=== PATIENT | female | born 1965 | race Caucasian/White ===

== ENCOUNTER 2017-03-12 07:14 | Day surgery (SDC) | payer MEDICAID ==
[2017-03-12] MEDS ORDERED: Midazolam 1 MG/ML 2 ML SDV ONE (07:53)
[2017-03-12] MEDS ORDERED: Propofol 200 MG/20 ML SDV ONE ×2 (07:53→09:18)
[2017-03-12] MEDS ORDERED: fentaNYL 100 MCG/2 ML SDV ONE (07:53)
[2017-03-12] MEDS ORDERED: Sodium Chloride 0.9% 1,000 ML IV SCH (08:45)
--- NOTE | 2017-03-13 09:09 | PROC ---
DATE OF PROCEDURE: 03/12/2017 INDICATION: Zainab is a 51-year-old female who comes in for a screening colonoscopy. The risks and benefits were explained to the patient. SCOPE: The Olympus 180AL scope was used. ANESTHESIA: The anesthesia was given by nurse wellness program administrator. During the procedure, we used 2 mg of Versed, 2 mL of fentanyl, and 400 mg of propofol. DESCRIPTION OF PROCEDURE: With a gloved finger, the rectum was examined. Then, the tube was placed into the rectum and advanced under direct vision. There were a few diverticula noted in the sigmoid colon. We advanced the scope, guided into the ascending colon, and had to use external pressure to get to the cecum. The cecum was entered. There were no abnormality noted in the cecum. Upon retraction of the tube, just close to the cecum, noted an area that was abnormal in architecture. Biopsy was done, but this was soft and not a firm area. We did biopsies anyway and 2 were done at that point. There was no significant bleeding noted after the procedure was done. Upon slow retraction of the tube, air was withdrawn slowly, got good observation of the entire mucosa. The remainder of the ascending, transverse, and descending colon was unremarkable. The sigmoid was unremarkable as well as the rectum. The tube was removed. The patient tolerated the procedure well. PREOPERATIVE DIAGNOSIS: Screening colonoscopy. POSTOPERATIVE DIAGNOSIS: Normal colon from cecum to rectum, except for proximal to the cecum noted an abnormal architecture area. Biopsies were done. I feel that this is most likely nonmalignant. Pictures were taken of this area as well. She will return to the office in 1 week, and we will discuss the report with her. James Alexis MD /[id number]
== END 2017-03-12 10:56 | disposition home or self-care (01) ==
LOC: JP.SDS 07:14
PROVIDERS: ATTEND Internal Medicine
DX: Z12.11 Encounter for screening for malignant neoplasm of colon (principal); K63.3 Ulcer of intestine; E03.9 Hypothyroidism, unspecified
CPT/HCPCS: 45380; J2250; J2704; J3010; J7040; 88305; J7030

== ENCOUNTER 2022-02-23 09:39 | Emergency (ER) | payer OTHER, MEDICAID ==
[2022-02-23] MEDS ORDERED: Sodium Chloride 0.9% 10 ML Syringe FLUSH PRN (10:20)
[2022-02-23] MEDS ORDERED: Ketorolac 30 MG/ML SDV IVPUSH ONE (10:21)
[2022-02-23] MEDS ORDERED: Ondansetron 4 MG/2 ML SDV IVPUSH ONE (10:21)
[2022-02-23] MEDS ORDERED: Lactated Ringers 1,000 ML IV SCH (10:30)
[2022-02-23 10:40] LABS: ESTIMATED GFR 74 mL/min (>60); TROPONIN I HIGH SENSITIVITY 6.3 pg/mL (<=60.3)
[2022-02-23 10:53] LABS: CORONAVIRUS COVID-19 NAA NEGATIVE (NEGATIVE)
== END 2022-02-23 12:04 | disposition home or self-care (01) ==
LOC: JP.ED 09:39
DX: K52.9 Noninfective gastroenteritis and colitis, unspecified (principal); Z79.899 Other long term (current) drug therapy; Z20.822 Contact with and (suspected) exposure to COVID-19
CPT/HCPCS: 0241U; 36415; 80053; 83605; 84484; 85025; 96361; 96374; 96375; 99284; J1885; J2405; J3490; J7120

== ENCOUNTER 2022-06-09 08:04 | Inpatient (IN) | payer OTHER, MEDICAID ==
[2022-06-09] MEDS ORDERED: Acetaminophen 500 MG Tab PO ONE (08:30)
[2022-06-09] MEDS ORDERED: Glycopyrrolate 0.2 MG/ML 5 ML MDV ONE (08:36)
[2022-06-09] MEDS ORDERED: Neostigmine Methylsulfate 1 MG/ML 5 ML Syringe ONE (08:36)
[2022-06-09] MEDS ORDERED: Rocuronium 50 MG/5 ML Vial ONE (08:36)
[2022-06-09] MEDS ORDERED: Propofol 200 MG/20 ML SDV ONE (08:36)
[2022-06-09] MEDS ORDERED: fentaNYL 250 MCG/5 ML SDV ONE (08:36)
[2022-06-09] MEDS ORDERED: Ondansetron 4 MG/2 ML SDV ONE (08:36)
[2022-06-09] MEDS ORDERED: Dexamethasone 4 MG/ML SDV ONE (08:36)
[2022-06-09] MEDS ORDERED: Succinylcholine 200 MG/10 ML MDV ONE (08:36)
[2022-06-09] MEDS ORDERED: Scopolamine 1.5 MG Transdermal Patch TRDERM ONE (08:38)
[2022-06-09] MEDS ORDERED: Bupivacaine 0.5%/EPINEPHrine 1:200,000 50 ML MDV ONE (08:53)
[2022-06-09] MEDS ORDERED: Indocyanine Green 25 MG SDV INJECT ONE (09:00)
[2022-06-09 09:02] LABS: ESTIMATED GFR 100 mL/min (>60)
[2022-06-09] MEDS: Lactated Ringers 1,000 ML IV SCH ×2 (09:04→16:13)
[2022-06-09] MEDS ORDERED: metroNIDAZOLE/Normal Saline 500 MG in Premix Bag 1 BAG IV ONE (09:15)
[2022-06-09] MEDS ORDERED: cefTRIAXone 2 GM in Sodium Chloride 0.9% 50 ML IV ONE (09:15)
[2022-06-09] MEDS ORDERED: Ketorolac 30 MG/ML SDV ONE (09:51)
[2022-06-09] MEDS ORDERED: fentaNYL 100 MCG/2 ML SDV ONE (09:52)
[2022-06-09] MEDS ORDERED: Lactated Ringers 1,000 ML ONE (10:42)
[2022-06-09] MEDS ORDERED: Ondansetron 4 MG/2 ML SDV IVPUSH PRN (11:32)
[2022-06-09] MEDS: Acetaminophen 1,000 MG in Premix Bag 1 BAG IV SCH ×2 (14:39→21:43)
[2022-06-09] MEDS: Prochlorperazine 10 MG/2 ML SDV IVPUSH PRN (17:09)
[2022-06-09] MEDS: oxyCODONE 5 MG Tab PO PRN (17:09)
[2022-06-09] MEDS: Ketorolac 15 MG/ML SDV IVPUSH SCH (18:11)
[2022-06-09] MEDS ORDERED: NALTREXONE HCL PO SCH (21:00)
[2022-06-09] MEDS ORDERED: [UNRECOGNIZED DRUG - OTHER] PO SCH (21:00)
[2022-06-09] MEDS ORDERED: BUPROPION HCL PO SCH (21:00)
[2022-06-09] MEDS: traZODone 50 MG Tab PO SCH (21:42)
[2022-06-10] MEDS: Ketorolac 15 MG/ML SDV IVPUSH SCH ×2 (00:46→06:06)
[2022-06-10] MEDS: Lactated Ringers 1,000 ML IV SCH (00:46)
[2022-06-10] MEDS: Acetaminophen 1,000 MG in Premix Bag 1 BAG IV SCH (03:17)
[2022-06-10 05:54] LABS: ESTIMATED GFR 104 mL/min (>60)
[2022-06-10] MEDS: Levothyroxine 112 MCG Tab PO SCH (07:17)
[2022-06-10] MEDS: Pantoprazole 40 MG Tab.CR PO SCH (07:17)
[2022-06-10] MEDS ORDERED: Non-Formulary Medication 1 Each (Omeprazole Magnesium [Prilosec Otc] 20 MG Tablet.Dr) PO SCH (09:00)
[2022-06-10] MEDS ORDERED: Levothyroxine 88 MCG Tab PO SCH (09:00)
[2022-06-10] MEDS ORDERED: Non-Formulary Medication 1 Each (Trazodone [Trazodone] 100 MG Tablet) PO SCH (09:00)
[2022-06-10] MEDS ORDERED: Indocyanine Green 25 MG SDV INJECT ONE (09:30)
[2022-06-10] MEDS: Acetaminophen 500 MG Tab PO SCH ×3 (09:33→21:31)
[2022-06-10] MEDS: oxyCODONE 5 MG Tab PO PRN ×2 (13:33→21:35)
[2022-06-10] MEDS ORDERED: Ondansetron 4 MG Tab.DIS PO PRN (13:52)
[2022-06-10] MEDS: Prochlorperazine 10 MG/2 ML SDV IVPUSH PRN (15:59)
[2022-06-10] MEDS: traZODone 50 MG Tab PO SCH (21:31)
[2022-06-11] MEDS: Acetaminophen 500 MG Tab PO SCH ×2 (04:02→09:13)
[2022-06-11] MEDS: oxyCODONE 5 MG Tab PO PRN (04:03)
[2022-06-11 06:13] LABS: ESTIMATED GFR 100 mL/min (>60)
[2022-06-11] MEDS: Levothyroxine 112 MCG Tab PO SCH (07:22)
[2022-06-11] MEDS: Pantoprazole 40 MG Tab.CR PO SCH (07:22)
[2022-06-11] MEDS ORDERED: Ketorolac 15 MG/ML SDV IVPUSH SCH (08:00)
[2022-06-11] MEDS ORDERED: Enoxaparin 40 MG/0.4 ML Syringe SUBCUT SCH (09:00)
== END 2022-06-11 13:38 | disposition home or self-care (01) | DRG 419 ==
LOC: JP.SDS 08:04 → JP.MS 11:32
PROVIDERS: ADMIT Student in an Organized Health Care Education/Training Program; ATTEND Student in an Organized Health Care Education/Training Program
PROC: 0FT44ZZ Resection of Gallbladder, Percutaneous Endoscopic Approach (ICD-10-PCS; principal; 2022-06-09)
PROC: 8E0W4CZ Robotic Assisted Procedure of Trunk Region, Percutaneous Endoscopic Approach (ICD-10-PCS; 2022-06-09)
DX: K80.64 Calculus of gallbladder and bile duct with chronic cholecystitis without obstruction (principal); K21.9 Gastro-esophageal reflux disease without esophagitis; E03.9 Hypothyroidism, unspecified; Z98.890 Other specified postprocedural states; Z90.49 Acquired absence of other specified parts of digestive tract
CPT/HCPCS: 36415; 80053; 83735; 84100; 85018; 85027; 85610; 88304; 93005; 93010; A9270-GY; J0131; J0330; J0780; J1100; J1650; J1885; J2405; J2704; J2710; J3010; J3490; J7120; Q0162; U0002

== ENCOUNTER 2022-07-17 06:05 | Day surgery (SDC) | payer OTHER, MEDICAID ==
[2022-07-17] MEDS ORDERED: Dextrose 5%-Lactated Ringers 1,000 ML IV SCH (06:30)
[2022-07-17] MEDS ORDERED: fentaNYL 50 MCG/ML SDV ONE (07:12)
[2022-07-17] MEDS ORDERED: Propofol 200 MG/20 ML SDV ONE (07:12)
[2022-07-17] MEDS ORDERED: Midazolam 1 MG/ML 2 ML SDV ONE (07:12)
[2022-07-17] MEDS ORDERED: Glycopyrrolate 0.2 MG/ML 2 ML SDV IVPUSH ONE (07:15)
== END 2022-07-17 09:11 | disposition home or self-care (01) ==
LOC: JP.SDS 06:05
PROVIDERS: ATTEND Surgery
DX: K29.60 Other gastritis without bleeding (principal); K25.9 Gastric ulcer, unspecified as acute or chronic, without hemorrhage or perforation; K44.9 Diaphragmatic hernia without obstruction or gangrene; K21.9 Gastro-esophageal reflux disease without esophagitis; E66.9 Obesity, unspecified; Z79.899 Other long term (current) drug therapy; Z68.29 Body mass index [BMI] 29.0-29.9, adult
CPT/HCPCS: 43239; 87081; 88305; 88341; 88342; J2250; J2704; J3010; J3490; J7121

== ENCOUNTER 2022-08-13 07:00 | Inpatient (IN) | payer OTHER, MEDICAID ==
[2022-08-13] MEDS: Scopolamine 1.5 MG Transdermal Patch TOP SCH (07:11)
[2022-08-13] MEDS ORDERED: Sodium Chloride 0.9% 1,000 ML IV SCH (08:00)
[2022-08-13] MEDS ORDERED: cefTRIAXone 2 GM in Sodium Chloride 0.9% 50 ML IV ONE (08:30)
[2022-08-13] MEDS ORDERED: fentaNYL 250 MCG/5 ML SDV ONE (08:31)
[2022-08-13] MEDS ORDERED: Glycopyrrolate 0.2 MG/ML 5 ML MDV ONE (09:00)
[2022-08-13] MEDS ORDERED: Neostigmine Methylsulfate 1 MG/ML 5 ML Syringe ONE (09:00)
[2022-08-13] MEDS ORDERED: Rocuronium 50 MG/5 ML Vial ONE (09:00)
[2022-08-13] MEDS ORDERED: metroNIDAZOLE/Normal Saline 500 MG in Premix Bag 1 BAG IV ONE (09:00)
[2022-08-13] MEDS ORDERED: Propofol 200 MG/20 ML SDV ONE (09:00)
[2022-08-13] MEDS ORDERED: Dexamethasone 4 MG/ML SDV ONE (09:00)
[2022-08-13] MEDS ORDERED: Ondansetron 4 MG/2 ML SDV ONE (09:00)
[2022-08-13] MEDS ORDERED: Ondansetron 4 MG Tab.DIS PO PRN (13:29)
[2022-08-13] MEDS ORDERED: Sennosides/Docusate Sodium 50-8.6 MG Tab PO PRN (13:35)
[2022-08-13] MEDS ORDERED: Acetaminophen 325 MG Tab PO SCH (13:45)
[2022-08-13] MEDS ORDERED: Acetaminophen 500 MG Tab PO SCH (14:30)
[2022-08-13] MEDS ORDERED: Benzocaine/Cetylpyridinium/Menthol Lozenge MUCMEM PRN (15:47)
[2022-08-13] MEDS: MVI, Adult with Vitamin K 10 ML in Sodium Chloride 0.9% 1,000 ML IV SCH ×2 (16:01)
[2022-08-13] MEDS: Lactated Ringers 1,000 ML IV SCH (18:04)
[2022-08-13] MEDS: traZODone 50 MG Tab PO SCH (20:03)
[2022-08-13] MEDS ORDERED: Non-Formulary Medication 1 Each (Trazodone [Trazodone] 100 MG Tablet) PO SCH (21:00)
[2022-08-13] MEDS: Acetaminophen Soln 650 MG/20.3 ML UD Cup PO SCH (22:06)
[2022-08-14 04:56] LABS: HEMATOCRIT 31.7 % (34.3-46.0); HEMOGLOBIN 10.5 g/dL (11.2-15.5); MEAN CORPUSCULAR HEMOGLOBIN 29.4 pg (31.6-35.5); MEAN CORPUSCULAR HGB CONC 33.1 g/dL (31.6-35.5); MEAN CORPUSCULAR VOLUME 88.8 fL (81.4-99.0); RED BLOOD CELL COUNT 3.57 M/uL (3.77-5.24); WHITE BLOOD CELL COUNT,WBC 4.6 K/uL (3.2-11.0)
[2022-08-14 05:25] LABS: ALANINE AMINOTRANSFERASE,ALT 25 U/L (12-78); ALBUMIN 2.8 g/dL (3.4-5.0); ALKALINE PHOSPHATASE 92 U/L (46-116); ASPARTATE AMNIOTRANSFERASE,AST 16 U/L (15-37); BILIRUBIN TOTAL 0.4 mg/dL (0.2-1.0); BLOOD UREA NITROGEN,BUN 5 mg/dL (7-18); CALCIUM 8.5 mg/dL (8.5-10.1); CARBON DIOXIDE,CO2 25 mmol/L (21-32); CHLORIDE,CL 109 mmol/L (100-108); CREATININE 0.5 mg/dL (0.6-1.0); EST CRCL DRUG DOSING (CG) 119.26 mL/min; ESTIMATED GFR 109 mL/min (>60); GLUCOSE RANDOM 97 mg/dL (74-106); PROTEIN TOTAL,TP 5.6 g/dL (6.4-8.2); SODIUM,NA 141 mmol/L (140-148)
[2022-08-14 05:27] LABS: MAGNESIUM 1.7 mg/dL (1.8-2.4); PHOSPHORUS 3.8 mg/dL (2.5-4.9)
[2022-08-14] MEDS: Levothyroxine 112 MCG Tab PO SCH (07:27)
[2022-08-14] MEDS: Acetaminophen Soln 650 MG/20.3 ML UD Cup PO SCH ×3 (07:27→17:31)
[2022-08-14] MEDS ORDERED: Levothyroxine 88 MCG Tab PO SCH (07:30)
[2022-08-14] MEDS ORDERED: Magnesium Sulfate/Water 2 GM in Premix Bag 1 BAG IV ONE (08:30)
[2022-08-14] MEDS ORDERED: Lidocaine 1% 20 ML MDV INJECT ONE ×3 (10:40→13:07)
[2022-08-14 11:24] LABS: HEMATOCRIT 32.7 % (34.3-46.0); HEMOGLOBIN 10.7 g/dL (11.2-15.5); MEAN CORPUSCULAR HEMOGLOBIN 29.3 pg (31.6-35.5); MEAN CORPUSCULAR HGB CONC 32.7 g/dL (31.6-35.5); MEAN CORPUSCULAR VOLUME 89.6 fL (81.4-99.0); RED BLOOD CELL COUNT 3.65 M/uL (3.77-5.24); WHITE BLOOD CELL COUNT,WBC 4.4 K/uL (3.2-11.0)
[2022-08-14 11:40] LABS: PROTHROMBIN TIME 10.4 sec (9.2-10.6)
[2022-08-14] MEDS ORDERED: Lidocaine 2% Jelly 10 ML Urojet ONE (13:22)
[2022-08-14] MEDS ORDERED: Lidocaine 2% Jelly 10 ML Urojet MUCMEM ONE (13:30)
[2022-08-14] MEDS ORDERED: Flumazenil 0.1 MG/ML 5 ML MDV IVPUSH PRN (14:30)
[2022-08-14] MEDS ORDERED: Midazolam 1 MG/ML 2 ML SDV IVPUSH PRN (14:30)
[2022-08-14] MEDS ORDERED: Naloxone 0.4 MG/ML SDV IVPUSH PRN (14:30)
[2022-08-14] MEDS ORDERED: fentaNYL 50 MCG/ML SDV IVPUSH ONE ×2 (14:30→14:55)
[2022-08-14] MEDS ORDERED: Midazolam 1 MG/ML 2 ML SDV IVPUSH ONE (14:55)
[2022-08-14] MEDS ORDERED: HYDROmorphone 0.5 MG/0.5 ML Syringe IVPUSH ONE (17:00)
[2022-08-14] MEDS: MVI, Adult with Vitamin K 10 ML in Sodium Chloride 0.9% 1,000 ML IV SCH ×2 (17:30)
[2022-08-14] MEDS ORDERED: HYDROmorphone 0.5 MG/0.5 ML Syringe IVPUSH PRN (17:31)
[2022-08-14] MEDS: Morphine 10 MG/0.5 ML Oral Syringe PO PRN (18:02)
[2022-08-14] MEDS: Lactated Ringers 1,000 ML IV SCH (19:46)
[2022-08-14] MEDS: Acetaminophen 1,000 MG in Premix Bag 1 BAG IV SCH (20:16)
[2022-08-14] MEDS: traZODone 50 MG Tab PO SCH (22:05)
[2022-08-15] MEDS: Morphine 10 MG/0.5 ML Oral Syringe PO PRN (02:36)
[2022-08-15] MEDS: Acetaminophen 1,000 MG in Premix Bag 1 BAG IV SCH ×2 (02:38→10:12)
[2022-08-15 05:51] LABS: HEMATOCRIT 29.4 % (34.3-46.0); HEMOGLOBIN 9.8 g/dL (11.2-15.5); MEAN CORPUSCULAR HEMOGLOBIN 29.8 pg (31.6-35.5); MEAN CORPUSCULAR HGB CONC 33.3 g/dL (31.6-35.5); MEAN CORPUSCULAR VOLUME 89.4 fL (81.4-99.0); RED BLOOD CELL COUNT 3.29 M/uL (3.77-5.24); WHITE BLOOD CELL COUNT,WBC 3.5 K/uL (3.2-11.0)
[2022-08-15 06:12] LABS: ALANINE AMINOTRANSFERASE,ALT 21 U/L (12-78); ALBUMIN 2.7 g/dL (3.4-5.0); ALKALINE PHOSPHATASE 86 U/L (46-116); ASPARTATE AMNIOTRANSFERASE,AST 11 U/L (15-37); BILIRUBIN TOTAL 0.3 mg/dL (0.2-1.0); BLOOD UREA NITROGEN,BUN 4 mg/dL (7-18); CALCIUM 7.9 mg/dL (8.5-10.1); CARBON DIOXIDE,CO2 25 mmol/L (21-32); CHLORIDE,CL 108 mmol/L (100-108); CREATININE 0.6 mg/dL (0.6-1.0); EST CRCL DRUG DOSING (CG) 99.12 mL/min; ESTIMATED GFR 104 mL/min (>60); GLUCOSE RANDOM 81 mg/dL (74-106); MAGNESIUM 1.8 mg/dL (1.8-2.4); PHOSPHORUS 3.6 mg/dL (2.5-4.9); POTASSIUM,K 3.4 mmol/L (3.6-5.2); PROTEIN TOTAL,TP 5.3 g/dL (6.4-8.2); SODIUM,NA 139 mmol/L (140-148)
[2022-08-15 06:14] LABS: ANION GAP 9.4 mmol/L (5.0-14.0)
[2022-08-15] MEDS: Lactated Ringers 1,000 ML IV SCH (06:32)
[2022-08-15] MEDS ORDERED: Scopolamine 1.5 MG Transdermal Patch TRDERM PRN (07:51)
[2022-08-15] MEDS ORDERED: Potassium Chloride 10 MEQ in Premix Bag 1 BAG IV ONE (08:00)
[2022-08-15] MEDS: Cyclobenzaprine 10 MG Tab PO PRN ×2 (08:12→16:17)
[2022-08-15] MEDS: Levothyroxine 112 MCG Tab PO SCH (08:13)
[2022-08-15] MEDS ORDERED: SCOPOLAMINE PATCH CHECK TOP SCH (09:00)
[2022-08-15] MEDS: Scopolamine 1.5 MG Transdermal Patch TOP SCH (09:21)
[2022-08-15] MEDS ORDERED: Acetaminophen/HYDROcodone 108-2.5 MG/5 ML Soln 15 ML UD Cup PO PRN (16:00)
== END 2022-08-15 17:45 | disposition home or self-care (01) | DRG 392 ==
LOC: JP.SDS 07:00 → JP.2SS 13:36
PROVIDERS: ADMIT Student in an Organized Health Care Education/Training Program; ATTEND Student in an Organized Health Care Education/Training Program
PROC: 0DB58ZX Excision of Esophagus, Via Natural or Artificial Opening Endoscopic, Diagnostic (ICD-10-PCS; principal; 2022-08-13)
PROC: 0FPB8DZ Removal of Intraluminal Device from Hepatobiliary Duct, Via Natural or Artificial Opening Endoscopic (ICD-10-PCS; principal; 2022-08-13)
PROC: 0DB68ZX Excision of Stomach, Via Natural or Artificial Opening Endoscopic, Diagnostic (ICD-10-PCS; principal; 2022-08-13)
PROC: 0DH63UZ Insertion of Feeding Device into Stomach, Percutaneous Approach (ICD-10-PCS; 2022-08-13)
PROC: BD12ZZZ Fluoroscopy of Stomach (ICD-10-PCS; 2022-08-13)
DX: K29.70 Gastritis, unspecified, without bleeding (principal); C15.9 Malignant neoplasm of esophagus, unspecified; K31.9 Disease of stomach and duodenum, unspecified; E86.0 Dehydration; E87.6 Hypokalemia; R13.10 Dysphagia, unspecified; E83.42 Hypomagnesemia; K21.9 Gastro-esophageal reflux disease without esophagitis; Z98.890 Other specified postprocedural states; Z98.51 Tubal ligation status
CPT/HCPCS: 36415; 43752; 49405; 49405-26; 76000; 76000-26; 77012; 77012-26; 80053; 83735; 84100; 85018; 85027; 85610; A9270-GY; C1729; C1769; J0131; J0696; J1100; J1170; J2250; J2405; J2704; J2710; J3010; J3475; J3480; J3490; J7030; J7120; Q0162

== ENCOUNTER 2022-11-10 07:44 | Inpatient (IN) | payer MEDICAID, OTHER ==
[~2022-11-10 07:44] MED LIST: Bupivacaine 0.5% 50 ML MDV ONE; Ketamine 20 MG in Sodium Chloride 0.9% 19.8 ML IV SCH; Ketamine 500 MG/5 ML MDV IV SCH; Lidocaine 1% with EPINEPHrine 1:100,000 50 ML MDV ONE; Meropenem 500 MG SDV ONE; Naloxone 0.4 MG/ML SDV IVPUSH PRN
[2022-11-10] MEDS ORDERED: Scopolamine 1.5 MG Transdermal Patch TOP SCH (08:00)
[2022-11-10] MEDS ORDERED: Propofol 200 MG/20 ML SDV ONE (08:21)
[2022-11-10] MEDS ORDERED: Rocuronium 50 MG/5 ML Vial ONE ×2 (08:21→10:54)
[2022-11-10] MEDS ORDERED: Ondansetron 4 MG/2 ML SDV ONE (08:21)
[2022-11-10] MEDS ORDERED: Succinylcholine 200 MG/10 ML MDV ONE (08:21)
[2022-11-10] MEDS ORDERED: Glycopyrrolate 0.2 MG/ML 5 ML MDV ONE (08:21)
[2022-11-10] MEDS ORDERED: Dexamethasone 4 MG/ML SDV ONE (08:21)
[2022-11-10] MEDS ORDERED: Neostigmine Methylsulfate 1 MG/ML 5 ML Syringe ONE (08:21)
[2022-11-10] MEDS ORDERED: fentaNYL 250 MCG/5 ML SDV ONE (08:23)
[2022-11-10] MEDS ORDERED: Sodium Chloride 0.9% 10 ML ONE ×3 (08:24→12:31)
[2022-11-10] MEDS ORDERED: fentaNYL 100 MCG/2 ML SDV ONE (08:24)
[2022-11-10] MEDS ORDERED: Dextrose 5%-Lactated Ringers 1,000 ML IV SCH (08:30)
[2022-11-10] MEDS ORDERED: cefOXitin 2 GM in Sodium Chloride 0.9% 50 ML IV ONE (09:00)
[2022-11-10] MEDS ORDERED: Meropenem 500 MG SDV ONE (09:24)
[2022-11-10] MEDS ORDERED: Midazolam 1 MG/ML 2 ML SDV ONE (09:44)
[2022-11-10] MEDS ORDERED: Lactated Ringers 1,000 ML ONE ×2 (10:52→13:41)
[2022-11-10] MEDS ORDERED: Phenylephrine 1% 10 MG/ML SDV ONE (12:23)
[2022-11-10] MEDS ORDERED: ePHEDrine 50 MG/ML SDV ONE (12:23)
[2022-11-10] MEDS ORDERED: Tranexamic Acid 1,000 MG in Sodium Chloride 0.9% 50 ML IV ONE ×2 (14:30→18:00)
[2022-11-10 15:37] LABS: HEMATOCRIT 41.9 % (34.3-46.0); HEMOGLOBIN 14.2 g/dL (11.2-15.5); MEAN CORPUSCULAR HEMOGLOBIN 32.3 pg (31.6-35.5); MEAN CORPUSCULAR HGB CONC 33.9 g/dL (31.6-35.5); MEAN CORPUSCULAR VOLUME 95.2 fL (81.4-99.0); RED BLOOD CELL COUNT 4.4 M/uL (3.77-5.24); WHITE BLOOD CELL COUNT,WBC 6.5 K/uL (3.2-11.0)
[2022-11-10 15:55] LABS: ANION GAP 10.9 mmol/L (5.0-14.0); CALCIUM 7.9 mg/dL (8.5-10.1); CREATININE 0.7 mg/dL (0.6-1.0); EST CRCL DRUG DOSING (CG) 84.15 mL/min; MAGNESIUM 1.7 mg/dL (1.8-2.4); PHOSPHORUS 3.7 mg/dL (2.5-4.9); POTASSIUM,K 3.9 mmol/L (3.6-5.2)
[2022-11-10] MEDS ORDERED: Lactated Ringers 500 ML IV ONE (15:55)
[2022-11-10] MEDS ORDERED: Labetalol 20 MG/4 ML Syringe IVPUSH PRN (17:00)
[2022-11-10] MEDS ORDERED: Acetaminophen 500 MG Tab PO PRN (17:00)
[2022-11-10] MEDS ORDERED: diphenhydrAMINE 50 MG/ML SDV IVPUSH PRN ×3 (17:00)
[2022-11-10] MEDS ORDERED: hydrOXYzine HCL 100 MG/2 ML SDV IM PRN (17:00)
[2022-11-10] MEDS ORDERED: Naloxone 0.4 MG/ML SDV IV PRN (17:00)
[2022-11-10] MEDS: fentaNYL 2,500 MCG in Sodium Chloride 0.9% 200 ML EPIDUR SCH (17:04)
[2022-11-10] MEDS: Pantoprazole 40 MG Vial IVPUSH SCH (17:06)
[2022-11-10] MEDS: Dextrose 5%-Lactated Ringers 1,000 ML IV SCH (17:07)
[2022-11-10] MEDS: cefOXitin 2 GM in Sodium Chloride 0.9% 50 ML IV SCH ×2 (17:16→22:18)
[2022-11-10] MEDS ORDERED: MVI, Adult with Vitamin K 10 ML, Thiamine 200 MG, Zinc/Copper/Manganese/Selenium 1 ML i... IV SCH ×4 (18:00)
[2022-11-10] MEDS: Acetaminophen 500 MG Tab PO SCH (19:35)
[2022-11-10] MEDS: traZODone 50 MG Tab PO SCH (22:12)
[2022-11-10] MEDS: Cyclobenzaprine 10 MG Tab PO PRN (22:15)
[2022-11-10] MEDS: Metoclopramide 10 MG/2 ML SDV IVPUSH PRN (22:15)
[2022-11-11] MEDS: Dextrose 5%-Lactated Ringers 1,000 ML IV SCH (00:30)
[2022-11-11] MEDS: Acetaminophen 500 MG Tab PO SCH ×3 (01:30→18:24)
[2022-11-11] MEDS ORDERED: Lactated Ringers 500 ML IV SCH (02:15)
[2022-11-11 02:16] LABS: BASOPHILS PERCENT AUTO 0.2 % (0.1-1.3); HEMATOCRIT 39.2 % (34.3-46.0); HEMOGLOBIN 13.1 g/dL (11.2-15.5); IMMATURE GRAN PERCENT AUTO 0.4 % (0.0-0.7); LYMPHOCYTES PERCENT AUTO 3.9 % (11.4-47.7); MEAN CORPUSCULAR HEMOGLOBIN 31.9 pg (31.6-35.5); MEAN CORPUSCULAR HGB CONC 33.4 g/dL (31.6-35.5); MEAN CORPUSCULAR VOLUME 95.4 fL (81.4-99.0); MONOCYTES ABSOLUTE AUTO 0.49 K/uL (0.20-0.90); MONOCYTES PERCENT AUTO 9.5 % (3.3-12.6); NEUTROPHILS ABSOLUTE AUTO 4.45 K/uL (1.0-7.6); PLATELET COUNT,PLT 139 K/uL (130-375); RED BLOOD CELL COUNT 4.11 M/uL (3.77-5.24); WHITE BLOOD CELL COUNT,WBC 5.2 K/uL (3.2-11.0)
[2022-11-11 02:17] LABS: BASOPHILS ABSOLUTE AUTO 0.01 K/uL (0.00-0.10); IMMATURE GRAN ABSOLUTE AUTO 0.02 K/uL (0.00-0.23)
[2022-11-11 02:42] LABS: A/G RATIO 0.9 (1.2-2.2); ALANINE AMINOTRANSFERASE,ALT 92 U/L (12-78); ALBUMIN 2.6 g/dL (3.4-5.0); ALKALINE PHOSPHATASE 92 U/L (46-116); ASPARTATE AMNIOTRANSFERASE,AST 81 U/L (15-37); BILIRUBIN TOTAL 1.5 mg/dL (0.2-1.0); BLOOD UREA NITROGEN,BUN 16 mg/dL (7-18); CALCIUM 7.7 mg/dL (8.5-10.1); CARBON DIOXIDE,CO2 21 mmol/L (21-32); CHLORIDE,CL 104 mmol/L (100-108); CREATININE 1.1 mg/dL (0.6-1.0); EST CRCL DRUG DOSING (CG) 53.55 mL/min; ESTIMATED GFR 58 mL/min (>60); GLUCOSE RANDOM 202 mg/dL (74-106); MAGNESIUM 1.7 mg/dL (1.8-2.4); PHOSPHORUS 3.7 mg/dL (2.5-4.9); POTASSIUM,K 4.8 mmol/L (3.6-5.2); PRO B-TYPE NATRIUR PEPT,BNPPRO 120 pg/mL (5-125); PROTEIN TOTAL,TP 5.4 g/dL (6.4-8.2); SODIUM,NA 138 mmol/L (140-148)
[2022-11-11 02:46] LABS: ANION GAP 17.8 mmol/L (5.0-14.0)
[2022-11-11] MEDS: fentaNYL 2,500 MCG in Sodium Chloride 0.9% 200 ML EPIDUR SCH ×2 (04:14→21:14)
[2022-11-11] MEDS ORDERED: Lactated Ringers 500 ML IV ONE ×3 (04:35→19:43)
[2022-11-11] MEDS: cefOXitin 2 GM in Sodium Chloride 0.9% 50 ML IV SCH ×4 (05:03→23:13)
[2022-11-11] MEDS ORDERED: Levothyroxine 112 MCG Tab PO SCH (07:30)
[2022-11-11] MEDS: Dextrose 5%-Lactated Ringers 1,000 ML with Naloxone 0.4 MG IV SCH ×6 (08:06→21:15)
[2022-11-11] MEDS ORDERED: hydrOXYzine HCL 100 MG/2 ML SDV IM PRN (08:24)
[2022-11-11] MEDS: Norepinephrine Bit/D5W Premix 4 MG in Premix Bag 1 BAG IV SCH ×2 (09:15→22:43)
[2022-11-11] MEDS: SCOPOLAMINE PATCH CHECK TOP SCH (09:28)
[2022-11-11] MEDS: Magnesium Sulfate/Water 2 GM in Premix Bag 1 BAG IV SCH ×3 (09:57→23:13)
[2022-11-11] MEDS: Cyclobenzaprine 10 MG Tab PO PRN (10:11)
[2022-11-11] MEDS: Lactated Ringers 500 ML IV ONE ×2 (11:44→15:50)
[2022-11-11] MEDS: Pantoprazole 40 MG Vial IVPUSH SCH (16:46)
[2022-11-11] MEDS ORDERED: Meropenem 500 MG SDV ONE ×2 (20:54→23:02)
[2022-11-11] MEDS ORDERED: Succinylcholine 200 MG/10 ML MDV ONE (21:03)
[2022-11-11] MEDS ORDERED: Glycopyrrolate 0.2 MG/ML 5 ML MDV ONE (21:03)
[2022-11-11] MEDS ORDERED: Ondansetron 4 MG/2 ML SDV ONE (21:03)
[2022-11-11] MEDS ORDERED: Neostigmine Methylsulfate 1 MG/ML 5 ML Syringe ONE (21:03)
[2022-11-11] MEDS ORDERED: Propofol 200 MG/20 ML SDV ONE (21:03)
[2022-11-11] MEDS ORDERED: Rocuronium 50 MG/5 ML Vial ONE (21:03)
[2022-11-11] MEDS ORDERED: Lidocaine 1% with EPINEPHrine 1:100,000 50 ML MDV ONE (21:03)
[2022-11-11] MEDS ORDERED: Bupivacaine 0.5% 50 ML MDV ONE (21:03)
[2022-11-11] MEDS ORDERED: Dexamethasone 4 MG/ML SDV ONE (21:03)
[2022-11-11] MEDS ORDERED: fentaNYL 250 MCG/5 ML SDV ONE (21:06)
[2022-11-11] MEDS ORDERED: Heparin Sodium 5,000 Units/ML Vial ONE (21:09)
[2022-11-11] MEDS ORDERED: Lidocaine 1% 2 ML ONE (21:22)
[2022-11-11] MEDS ORDERED: Phenylephrine 1% 10 MG/ML SDV ONE (21:58)
[2022-11-11] MEDS ORDERED: Linezolid 600 MG/300 ML Premix Bag IRR ONE ×2 (22:52)
[2022-11-11] MEDS: traZODone 50 MG Tab PO SCH (23:13)
[2022-11-11] MEDS ORDERED: Bupivacaine 0.5%/EPINEPHrine 1:200,000 50 ML MDV ONE (23:23)
[2022-11-12] MEDS ORDERED: Rocuronium 50 MG/5 ML Vial ONE ×2 (00:04)
[2022-11-12] MEDS ORDERED: Ropivacaine 40 ML, dexAMETHasone 8 MG, EPINEPHrine 0.4 MG, Sodium Chloride 0.9% 37.6 ML NERVRT SCH ×8 (00:05→07:30)
[2022-11-12] MEDS: Acetaminophen 500 MG Tab PO SCH (01:09)
[2022-11-12] MEDS ORDERED: Acetaminophen 500 MG Tab PO PRN (01:44)
[2022-11-12] MEDS ORDERED: Naloxone 0.4 MG/ML SDV IV PRN (02:00)
[2022-11-12] MEDS ORDERED: Dextrose 5%-Lactated Ringers 1,000 ML IV SCH (02:00)
[2022-11-12 02:04] LABS: BASE EXCESS ARTERIAL -7.2 mm/L; BICARBONATE,ARTERIAL 19.3 mmol/L (22.0-26.0); CARBOXYHEMOGLOBIN 2.6 % (0.0-1.6); METHEMOGLOBIN 0.8 %; O2 SATURATION ARTERIAL 95.4 % (95.0-98.0); OXYHEMOGLOBIN 92.2 %; PCO2 ARTERIAL 44.3 mmHg (35.0-42.0); PO2 ARTERIAL 82.4 mmHg (75.0-100.0); TOTAL HEMOGLOBIN 12.8 g/dL (12.0-16.0)
[2022-11-12] MEDS ORDERED: Heparin Sodium 5,000 Units/ML Vial ONE (02:09)
[2022-11-12 02:17] LABS: CARCINOEMBRYONIC ANTIGEN 1.1 ng/mL (<=3.8)
[2022-11-12] MEDS: HYDROmorphone/Normal Saline 6 MG/30 ML PCA Vial IV PRN (02:32)
[2022-11-12] MEDS: propofoL 100 ML IV SCH ×2 (02:56→16:33)
[2022-11-12] MEDS ORDERED: Heparin Sodium 5,000 UNITS in Sodium Chloride 0.9% 500 ML IV SCH (03:00)
[2022-11-12] MEDS: Lactated Ringers 1,000 ML IV SCH ×3 (03:06→23:02)
[2022-11-12] MEDS: Magnesium Sulfate/Water 2 GM in Premix Bag 1 BAG IV SCH ×4 (03:54→21:28)
[2022-11-12] MEDS: Meropenem 500 MG in Sodium Chloride 0.9% 50 ML IV SCH ×4 (03:54→21:27)
[2022-11-12 05:17] LABS: BASE EXCESS ARTERIAL -4.9 mm/L; CARBOXYHEMOGLOBIN 3.2 % (0.0-1.6); METHEMOGLOBIN 0.8 %; OXYHEMOGLOBIN 95.5 %; PCO2 ARTERIAL 33.4 mmHg (35.0-42.0); TOTAL HEMOGLOBIN 12.1 g/dL (12.0-16.0)
[2022-11-12 05:19] LABS: HEMATOCRIT 33.8 % (34.3-46.0); HEMOGLOBIN 11.7 g/dL (11.2-15.5); MEAN CORPUSCULAR HEMOGLOBIN 32.3 pg (31.6-35.5); MEAN CORPUSCULAR HGB CONC 34.6 g/dL (31.6-35.5); MEAN CORPUSCULAR VOLUME 93.4 fL (81.4-99.0); PLATELET COUNT,PLT 141 K/uL (130-375); RED BLOOD CELL COUNT 3.62 M/uL (3.77-5.24); WHITE BLOOD CELL COUNT,WBC 7.6 K/uL (3.2-11.0)
[2022-11-12 05:23] LABS: O2 SATURATION ARTERIAL > 99.3 % (95.0-98.0)
[2022-11-12 05:39] LABS: BAND ABSOLUTE MAN 2.51 K/uL; BAND PERCENT MAN 33 % (5-11); LYMPHOCYTES ABSOLUTE MAN 0.53 K/uL (0.8-3.3); LYMPHOCYTES PERCENT MAN 7 % (24-44); MONOCYTES ABSOLUTE MAN 0.84 K/uL (0.20-0.90); MONOCYTES PERCENT MAN 11 % (2-6); NEUTROPHILS ABSOLUTE MAN 3.72 K/uL (1.0-7.6); SEG NEUTROPHILS PERCENT MAN 49 % (36-66)
[2022-11-12 05:49] LABS: A/G RATIO 0.6 (1.2-2.2); ALANINE AMINOTRANSFERASE,ALT 61 U/L (12-78); ALBUMIN 1.7 g/dL (3.4-5.0); ALKALINE PHOSPHATASE 69 U/L (46-116); ANION GAP 15.3 mmol/L (5.0-14.0); ASPARTATE AMNIOTRANSFERASE,AST 44 U/L (15-37); BILIRUBIN TOTAL 0.9 mg/dL (0.2-1.0); BLOOD UREA NITROGEN,BUN 20 mg/dL (7-18); CALCIUM 7.4 mg/dL (8.5-10.1); CARBON DIOXIDE,CO2 20 mmol/L (21-32); CHLORIDE,CL 102 mmol/L (100-108); CREATININE 0.8 mg/dL (0.6-1.0); EST CRCL DRUG DOSING (CG) 73.44 mL/min; ESTIMATED GFR 85 mL/min (>60); GLUCOSE RANDOM 172 mg/dL (74-106); MAGNESIUM 1.9 mg/dL (1.8-2.4); PHOSPHORUS 2.8 mg/dL (2.5-4.9); POTASSIUM,K 5.3 mmol/L (3.6-5.2); PRO B-TYPE NATRIUR PEPT,BNPPRO 515 pg/mL (5-125); PROTEIN TOTAL,TP 4.4 g/dL (6.4-8.2); SODIUM,NA 132 mmol/L (140-148)
[2022-11-12] MEDS ORDERED: Acetaminophen 500 MG Tab PO SCH (06:00)
[2022-11-12] MEDS: SCOPOLAMINE PATCH CHECK TOP SCH (09:17)
[2022-11-12] MEDS: Levothyroxine 112 MCG Tab JTUBE SCH ×2 (09:31→11:43)
[2022-11-12] MEDS: Norepinephrine Bit/D5W Premix 4 MG in Premix Bag 1 BAG IV SCH ×2 (09:36→18:19)
[2022-11-12 10:59] LABS: BASE EXCESS ARTERIAL -2.6 mm/L; BICARBONATE,ARTERIAL 20.4 mmol/L (22.0-26.0); CARBOXYHEMOGLOBIN 2.7 % (0.0-1.6); METHEMOGLOBIN 0.3 %; O2 SATURATION ARTERIAL 98.5 % (95.0-98.0); OXYHEMOGLOBIN 95.5 %; PCO2 ARTERIAL 31.2 mmHg (35.0-42.0); TOTAL HEMOGLOBIN 11.1 g/dL (12.0-16.0)
[2022-11-12 16:51] LABS: BASE EXCESS ARTERIAL -0.7 mm/L; BICARBONATE,ARTERIAL 22.5 mmol/L (22.0-26.0); CARBOXYHEMOGLOBIN 3.2 % (0.0-1.6); METHEMOGLOBIN 0.8 %; OXYHEMOGLOBIN 95.5 %; PCO2 ARTERIAL 33.4 mmHg (35.0-42.0); TOTAL HEMOGLOBIN 10.6 g/dL (12.0-16.0)
[2022-11-12 16:52] LABS: O2 SATURATION ARTERIAL > 99.3 % (95.0-98.0)
[2022-11-12 17:06] LABS: CALCIUM 7.3 mg/dL (8.5-10.1); CREATININE 0.5 mg/dL (0.6-1.0); EST CRCL DRUG DOSING (CG) 117.5 mL/min
[2022-11-12] MEDS: Pantoprazole 40 MG Vial IVPUSH SCH (17:15)
[2022-11-13] MEDS: propofoL 100 ML IV SCH ×3 (02:37→19:02)
[2022-11-13] MEDS: Meropenem 500 MG in Sodium Chloride 0.9% 50 ML IV SCH ×4 (03:23→21:27)
[2022-11-13] MEDS: Magnesium Sulfate/Water 2 GM in Premix Bag 1 BAG IV SCH (03:23)
[2022-11-13] MEDS: Norepinephrine Bit/D5W Premix 4 MG in Premix Bag 1 BAG IV SCH ×3 (03:36→20:09)
[2022-11-13 04:15] LABS: BICARBONATE,ARTERIAL 23.7 mmol/L (22.0-26.0); MEAN CORPUSCULAR HGB CONC 34.6 g/dL (31.6-35.5); MEAN CORPUSCULAR VOLUME 92.5 fL (81.4-99.0); METHEMOGLOBIN 0.3 %; OXYHEMOGLOBIN 95.3 %; PCO2 ARTERIAL 31.9 mmHg (35.0-42.0); RED BLOOD CELL COUNT 2.81 M/uL (3.77-5.24); TOTAL HEMOGLOBIN 9.5 g/dL (12.0-16.0); WHITE BLOOD CELL COUNT,WBC 7.1 K/uL (3.2-11.0)
[2022-11-13 04:20] LABS: O2 SATURATION ARTERIAL > 99.3 % (95.0-98.0)
[2022-11-13 04:44] LABS: A/G RATIO 0.5 (1.2-2.2); ALANINE AMINOTRANSFERASE,ALT 40 U/L (12-78); ALBUMIN 1.3 g/dL (3.4-5.0); ALKALINE PHOSPHATASE 68 U/L (46-116); ASPARTATE AMNIOTRANSFERASE,AST 23 U/L (15-37); BILIRUBIN TOTAL 0.6 mg/dL (0.2-1.0); BLOOD UREA NITROGEN,BUN 12 mg/dL (7-18); CARBON DIOXIDE,CO2 25 mmol/L (21-32); CHLORIDE,CL 101 mmol/L (100-108); CREATININE 0.5 mg/dL (0.6-1.0); ESTIMATED GFR 108 mL/min (>60); GLUCOSE RANDOM 116 mg/dL (74-106); MAGNESIUM 2.1 mg/dL (1.8-2.4); PHOSPHORUS 1.7 mg/dL (2.5-4.9); POTASSIUM,K 4.7 mmol/L (3.6-5.2); PRO B-TYPE NATRIUR PEPT,BNPPRO 233 pg/mL (5-125); PROTEIN TOTAL,TP 3.8 g/dL (6.4-8.2); SODIUM,NA 131 mmol/L (140-148)
[2022-11-13 04:46] LABS: ANION GAP 9.7 mmol/L (5.0-14.0)
[2022-11-13] MEDS: Lactated Ringers 1,000 ML IV SCH (05:26)
[2022-11-13] MEDS ORDERED: Dextrose 5%-Lactated Ringers 1,000 ML IV SCH ×2 (08:00→16:00)
[2022-11-13 08:19] LABS: BICARBONATE,ARTERIAL 24.2 mmol/L (22.0-26.0); CARBOXYHEMOGLOBIN 2.8 % (0.0-1.6); METHEMOGLOBIN 0.7 %; O2 SATURATION ARTERIAL 99.1 % (95.0-98.0); OXYHEMOGLOBIN 95.6 %; PCO2 ARTERIAL 34.5 mmHg (35.0-42.0); TOTAL HEMOGLOBIN 9.8 g/dL (12.0-16.0)
[2022-11-13] MEDS: Levothyroxine 112 MCG Tab JTUBE SCH (08:29)
[2022-11-13] MEDS: HYDROmorphone/Normal Saline 6 MG/30 ML PCA Vial IV PRN (09:04)
[2022-11-13] MEDS: Sodium Phosphate 15 mMole/5 ML SDV JTUBE SCH ×3 (09:08→21:28)
[2022-11-13] MEDS ORDERED: Furosemide 20 MG/2 ML VIAL IVPUSH ONE (12:00)
[2022-11-13] MEDS: Heparin Sodium 5,000 UNITS in Sodium Chloride 0.9% 500 ML IV SCH ×2 (14:02→14:03)
[2022-11-13] MEDS ORDERED: HYDROmorphone 1 MG/ML Syringe IVPUSH ONE (14:38)
[2022-11-13 15:29] LABS: BASE EXCESS ARTERIAL 0.3 mm/L; BICARBONATE,ARTERIAL 24.7 mmol/L (22.0-26.0); CARBOXYHEMOGLOBIN 2.4 % (0.0-1.6); METHEMOGLOBIN 0.4 %; O2 SATURATION ARTERIAL 94.1 % (95.0-98.0); OXYHEMOGLOBIN 91.5 %; PCO2 ARTERIAL 41.1 mmHg (35.0-42.0); PO2 ARTERIAL 68.8 mmHg (75.0-100.0); TOTAL HEMOGLOBIN 10.9 g/dL (12.0-16.0)
[2022-11-13 15:31] LABS: HEMATOCRIT 30.5 % (34.3-46.0); HEMOGLOBIN 10.6 g/dL (11.2-15.5); MEAN CORPUSCULAR HEMOGLOBIN 31.7 pg (31.6-35.5); MEAN CORPUSCULAR HGB CONC 34.8 g/dL (31.6-35.5); MEAN CORPUSCULAR VOLUME 91.3 fL (81.4-99.0); RED BLOOD CELL COUNT 3.34 M/uL (3.77-5.24); WHITE BLOOD CELL COUNT,WBC 8.6 K/uL (3.2-11.0)
[2022-11-13 15:57] LABS: CREATININE 0.5 mg/dL (0.6-1.0); EST CRCL DRUG DOSING (CG) 117.5 mL/min; POTASSIUM,K 4.2 mmol/L (3.6-5.2); TROPONIN I HIGH SENSITIVITY 27.5 pg/mL (<=60.3)
[2022-11-13 15:58] LABS: ANION GAP 10.2 mmol/L (5.0-14.0)
[2022-11-13] MEDS: Hypromellose 0.3% Ophth Soln 15 ML Bottle EYEBOTH PRN ×2 (16:42→19:36)
[2022-11-13] MEDS: Pantoprazole 40 MG Vial IVPUSH SCH (17:29)
[2022-11-14] MEDS: propofoL 100 ML IV SCH ×5 (00:41→21:45)
[2022-11-14] MEDS: HYDROmorphone/Normal Saline 6 MG/30 ML PCA Vial IV PRN ×2 (01:06→13:24)
[2022-11-14] MEDS: Norepinephrine Bit/D5W Premix 4 MG in Premix Bag 1 BAG IV SCH ×2 (02:30→07:48)
[2022-11-14] MEDS: Meropenem 500 MG in Sodium Chloride 0.9% 50 ML IV SCH ×2 (03:16→09:09)
[2022-11-14 04:54] LABS: BASOPHILS PERCENT AUTO 0.1 % (0.1-1.3); HEMATOCRIT 28.3 % (34.3-46.0); HEMOGLOBIN 9.7 g/dL (11.2-15.5); IMMATURE GRAN ABSOLUTE AUTO 0.06 K/uL (0.00-0.23); IMMATURE GRAN PERCENT AUTO 0.6 % (0.0-0.7); LYMPHOCYTES PERCENT AUTO 3.1 % (11.4-47.7); MEAN CORPUSCULAR HEMOGLOBIN 31.4 pg (31.6-35.5); MEAN CORPUSCULAR HGB CONC 34.3 g/dL (31.6-35.5); MEAN CORPUSCULAR VOLUME 91.6 fL (81.4-99.0); MONOCYTES ABSOLUTE AUTO 0.99 K/uL (0.20-0.90); MONOCYTES PERCENT AUTO 10.1 % (3.3-12.6); NEUTROPHILS ABSOLUTE AUTO 8.41 K/uL (1.0-7.6); NEUTROPHILS PERCENT AUTO 86.1 % (40.0-78.1); PLATELET COUNT,PLT 111 K/uL (130-375); RED BLOOD CELL COUNT 3.09 M/uL (3.77-5.24); WHITE BLOOD CELL COUNT,WBC 9.8 K/uL (3.2-11.0)
[2022-11-14 05:03] LABS: BASOPHILS ABSOLUTE AUTO 0.01 K/uL (0.00-0.10)
[2022-11-14 05:29] LABS: A/G RATIO 0.4 (1.2-2.2); ALANINE AMINOTRANSFERASE,ALT 28 U/L (12-78); ALBUMIN 1.1 g/dL (3.4-5.0); ALKALINE PHOSPHATASE 89 U/L (46-116); ASPARTATE AMNIOTRANSFERASE,AST 23 U/L (15-37); BILIRUBIN TOTAL 0.9 mg/dL (0.2-1.0); BLOOD UREA NITROGEN,BUN 7 mg/dL (7-18); CARBON DIOXIDE,CO2 26 mmol/L (21-32); CHLORIDE,CL 101 mmol/L (100-108); CREATININE 0.4 mg/dL (0.6-1.0); EST CRCL DRUG DOSING (CG) 146.87 mL/min; ESTIMATED GFR 114 mL/min (>60); GLUCOSE RANDOM 113 mg/dL (74-106); MAGNESIUM 1.6 mg/dL (1.8-2.4); PHOSPHORUS 2.7 mg/dL (2.5-4.9); POTASSIUM,K 4.1 mmol/L (3.6-5.2); PRO B-TYPE NATRIUR PEPT,BNPPRO 966 pg/mL (5-125); PROTEIN TOTAL,TP 4.1 g/dL (6.4-8.2); SODIUM,NA 133 mmol/L (140-148)
[2022-11-14 05:30] LABS: ANION GAP 10.1 mmol/L (5.0-14.0)
[2022-11-14] MEDS: Hypromellose 0.3% Ophth Soln 15 ML Bottle EYEBOTH PRN ×3 (06:19→14:53)
[2022-11-14] MEDS ORDERED: Lidocaine 1% with EPINEPHrine 1:100,000 50 ML MDV ONE (06:35)
[2022-11-14] MEDS ORDERED: Meropenem 500 MG SDV ONE (06:35)
[2022-11-14] MEDS ORDERED: Bupivacaine 0.5% 50 ML MDV ONE (06:35)
[2022-11-14] MEDS ORDERED: Linezolid 600 MG/300 ML Premix Bag IRR ONE (07:50)
[2022-11-14] MEDS: Fluconazole/Normal Saline 400 MG in Premix Bag 1 BAG IV SCH (09:04)
[2022-11-14] MEDS: Levothyroxine 112 MCG Tab JTUBE SCH (09:17)
[2022-11-14] MEDS ORDERED: Furosemide 20 MG/2 ML VIAL IVPUSH SCH (10:00)
[2022-11-14] MEDS: Albumin Human 25 GM in Premix Bag 1 BAG IV SCH ×2 (11:05→15:02)
[2022-11-14 12:17] LABS: BASE EXCESS ARTERIAL 2.9 mm/L; BICARBONATE,ARTERIAL 26.9 mmol/L (22.0-26.0); CARBOXYHEMOGLOBIN 1.9 % (0.0-1.6); METHEMOGLOBIN 0.3 %; O2 SATURATION ARTERIAL 95.8 % (95.0-98.0); OXYHEMOGLOBIN 93.7 %; PCO2 ARTERIAL 40.9 mmHg (35.0-42.0); PO2 ARTERIAL 75.8 mmHg (75.0-100.0)
[2022-11-14] MEDS: Norepinephrine 8 MG in Dextrose 5% in Water 250 ML IV SCH ×2 (13:17)
[2022-11-14] MEDS: Magnesium Sulfate/Water 2 GM in Premix Bag 1 BAG IV SCH ×2 (13:44→21:14)
[2022-11-14] MEDS ORDERED: Naloxone 0.4 MG/ML SDV IVPUSH PRN (14:02)
[2022-11-14] MEDS ORDERED: diphenhydrAMINE 50 MG/ML SDV IVPUSH PRN (14:02)
[2022-11-14] MEDS ORDERED: diphenhydrAMINE 25 MG Cap PO PRN (14:02)
[2022-11-14] MEDS ORDERED: Ondansetron 4 MG/2 ML SDV IVPUSH PRN (14:02)
[2022-11-14] MEDS ORDERED: Hydrocortisone Sodium Succinate 100 MG/2 ML SDV IVPUSH ONE (14:15)
[2022-11-14] MEDS: STERILE IV SCH ×2 (14:41→21:23)
[2022-11-14] MEDS: MEROPENEM IV SCH ×2 (14:41→21:23)
[2022-11-14] MEDS: WATER FOR INJECTION IV SCH ×2 (14:41→21:23)
[2022-11-14] MEDS: Aztreonam 1 GM in Water For Injection, Sterile 10 ML IV SCH (15:30)
[2022-11-14] MEDS ORDERED: Heparin Sodium 5,000 UNITS in Sodium Chloride 0.9% 500 ML IV SCH (16:00)
[2022-11-14] MEDS ORDERED: Amiodarone 150 MG/3 ML SDV IVPUSH ONE (16:30)
[2022-11-14] MEDS: Pantoprazole 40 MG Vial IVPUSH SCH (17:03)
[2022-11-15] MEDS: Aztreonam 1 GM in Water For Injection, Sterile 10 ML IV SCH ×3 (00:18→16:00)
[2022-11-15] MEDS: Hypromellose 0.3% Ophth Soln 15 ML Bottle EYEBOTH PRN (01:00)
[2022-11-15] MEDS: Norepinephrine 8 MG in Dextrose 5% in Water 250 ML IV SCH ×4 (01:16→12:14)
[2022-11-15] MEDS: Magnesium Sulfate/Water 2 GM in Premix Bag 1 BAG IV SCH ×4 (02:17→20:53)
[2022-11-15] MEDS: MEROPENEM IV SCH ×4 (02:19→21:12)
[2022-11-15] MEDS: WATER FOR INJECTION IV SCH ×4 (02:19→21:12)
[2022-11-15] MEDS: STERILE IV SCH ×4 (02:19→21:12)
[2022-11-15] MEDS: propofoL 100 ML IV SCH ×5 (02:53→19:35)
[2022-11-15] MEDS: HYDROmorphone/Normal Saline 6 MG/30 ML PCA Vial IV PRN ×3 (02:54→23:49)
[2022-11-15 04:38] LABS: HEMATOCRIT 25.3 % (34.3-46.0); HEMOGLOBIN 8.6 g/dL (11.2-15.5); MEAN CORPUSCULAR HEMOGLOBIN 31.4 pg (31.6-35.5); MEAN CORPUSCULAR VOLUME 92.3 fL (81.4-99.0); RED BLOOD CELL COUNT 2.74 M/uL (3.77-5.24)
[2022-11-15 04:42] LABS: BASE EXCESS ARTERIAL 4.9 mm/L; BICARBONATE,ARTERIAL 28.4 mmol/L (22.0-26.0); CARBOXYHEMOGLOBIN 2.3 % (0.0-1.6); METHEMOGLOBIN 0.8 %; O2 SATURATION ARTERIAL 97.1 % (95.0-98.0); OXYHEMOGLOBIN 94.1 %; PCO2 ARTERIAL 38.9 mmHg (35.0-42.0); PO2 ARTERIAL 81.4 mmHg (75.0-100.0)
[2022-11-15 05:05] LABS: A/G RATIO 0.6 (1.2-2.2); ALANINE AMINOTRANSFERASE,ALT 22 U/L (12-78); ALBUMIN 1.8 g/dL (3.4-5.0); ALKALINE PHOSPHATASE 102 U/L (46-116); ASPARTATE AMNIOTRANSFERASE,AST 16 U/L (15-37); BILIRUBIN TOTAL 0.9 mg/dL (0.2-1.0); BLOOD UREA NITROGEN,BUN 7 mg/dL (7-18); CALCIUM 7.3 mg/dL (8.5-10.1); CARBON DIOXIDE,CO2 31 mmol/L (21-32); CHLORIDE,CL 103 mmol/L (100-108); CREATININE 0.4 mg/dL (0.6-1.0); EST CRCL DRUG DOSING (CG) 146.87 mL/min; ESTIMATED GFR 114 mL/min (>60); GLUCOSE RANDOM 134 mg/dL (74-106); PHOSPHORUS 2.2 mg/dL (2.5-4.9); POTASSIUM,K 3.8 mmol/L (3.6-5.2); PRO B-TYPE NATRIUR PEPT,BNPPRO 1782 pg/mL (5-125); PROTEIN TOTAL,TP 4.6 g/dL (6.4-8.2); SODIUM,NA 139 mmol/L (140-148)
[2022-11-15] MEDS: Dextrose 5%-Lactated Ringers 1,000 ML with Naloxone 0.4 MG IV SCH ×2 (05:07)
[2022-11-15 05:08] LABS: ANION GAP 8.8 mmol/L (5.0-14.0)
[2022-11-15] MEDS: Levothyroxine 112 MCG Tab JTUBE SCH (07:38)
[2022-11-15] MEDS ORDERED: Furosemide 20 MG/2 ML VIAL IV SCH (09:30)
[2022-11-15] MEDS: Fluconazole/Normal Saline 400 MG in Premix Bag 1 BAG IV SCH (09:32)
[2022-11-15] MEDS: Sodium Chloride 0.9% 1,000 ML IV SCH (10:00)
[2022-11-15] MEDS: Potassium Phosphates 3 mMole/ML 15 ML SDV JTUBE SCH ×3 (10:19→21:13)
[2022-11-15] MEDS: Albumin Human 25 GM in Premix Bag 1 BAG IV SCH ×2 (11:36→15:08)
[2022-11-15] MEDS ORDERED: Furosemide 20 MG/2 ML VIAL IVPUSH ONE ×2 (17:00→23:45)
[2022-11-15] MEDS: Pantoprazole 40 MG Vial IVPUSH SCH (17:08)
[2022-11-15] MEDS ORDERED: Acetaminophen 1,000 MG in Premix Bag 1 BAG IV ONE (20:08)
[2022-11-15] MEDS ORDERED: Acetaminophen 1,000 MG in Premix Bag 1 BAG IV PRN (20:10)
[2022-11-16] MEDS: propofoL 100 ML IV SCH ×5 (00:35→20:56)
[2022-11-16] MEDS: Aztreonam 1 GM in Water For Injection, Sterile 10 ML IV SCH ×2 (00:38→08:00)
[2022-11-16] MEDS ORDERED: Acetaminophen 1,000 MG in Premix Bag 1 BAG IV PRN (02:00)
[2022-11-16] MEDS: Norepinephrine 8 MG in Dextrose 5% in Water 250 ML IV SCH ×6 (03:39→23:42)
[2022-11-16] MEDS: STERILE IV SCH ×5 (03:48→21:14)
[2022-11-16] MEDS: MEROPENEM IV SCH ×5 (03:48→21:14)
[2022-11-16] MEDS: WATER FOR INJECTION IV SCH ×5 (03:48→21:14)
[2022-11-16] MEDS: Hypromellose 0.3% Ophth Soln 15 ML Bottle EYEBOTH PRN (04:09)
[2022-11-16 04:36] LABS: BASE EXCESS ARTERIAL 7.1 mm/L; BICARBONATE,ARTERIAL 30.5 mmol/L (22.0-26.0); CARBOXYHEMOGLOBIN 2.4 % (0.0-1.6); METHEMOGLOBIN 0.9 %; O2 SATURATION ARTERIAL 97.8 % (95.0-98.0); OXYHEMOGLOBIN 94.6 %; PCO2 ARTERIAL 39.2 mmHg (35.0-42.0); PO2 ARTERIAL 85.9 mmHg (75.0-100.0); TOTAL HEMOGLOBIN 8.8 g/dL (12.0-16.0)
[2022-11-16 04:48] LABS: HEMATOCRIT 24.9 % (34.3-46.0); HEMOGLOBIN 8.5 g/dL (11.2-15.5); MEAN CORPUSCULAR HEMOGLOBIN 31.8 pg (31.6-35.5); MEAN CORPUSCULAR HGB CONC 34.1 g/dL (31.6-35.5); MEAN CORPUSCULAR VOLUME 93.3 fL (81.4-99.0); PLATELET COUNT,PLT 91 K/uL (130-375); RED BLOOD CELL COUNT 2.67 M/uL (3.77-5.24); WHITE BLOOD CELL COUNT,WBC 7.1 K/uL (3.2-11.0)
[2022-11-16 05:11] LABS: A/G RATIO 0.8 (1.2-2.2); ALANINE AMINOTRANSFERASE,ALT 24 U/L (12-78); ALKALINE PHOSPHATASE 104 U/L (46-116); ASPARTATE AMNIOTRANSFERASE,AST 18 U/L (15-37); BILIRUBIN TOTAL 1.2 mg/dL (0.2-1.0); BLOOD UREA NITROGEN,BUN 10 mg/dL (7-18); CALCIUM 7.3 mg/dL (8.5-10.1); CARBON DIOXIDE,CO2 31 mmol/L (21-32); CHLORIDE,CL 102 mmol/L (100-108); CREATININE 0.4 mg/dL (0.6-1.0); EST CRCL DRUG DOSING (CG) 146.87 mL/min; ESTIMATED GFR 114 mL/min (>60); GLUCOSE RANDOM 117 mg/dL (74-106); LACTATE DEHYDROGENASE,LDH 127 U/L (82-234); MAGNESIUM 2.1 mg/dL (1.8-2.4); PHOSPHORUS 3.1 mg/dL (2.5-4.9); POTASSIUM,K 3.5 mmol/L (3.6-5.2); PRO B-TYPE NATRIUR PEPT,BNPPRO 1990 pg/mL (5-125); PROTEIN TOTAL,TP 4.6 g/dL (6.4-8.2); SODIUM,NA 140 mmol/L (140-148)
[2022-11-16 05:13] LABS: ANION GAP 10.5 mmol/L (5.0-14.0)
[2022-11-16 05:22] LABS: BAND ABSOLUTE MAN 1.28 K/uL; BAND PERCENT MAN 18 % (5-11); EOSINOPHILS ABSOLUTE MAN 0.07 K/uL (0.00-0.40); EOSINOPHILS PERCENT MAN 1 % (2-4); LYMPHOCYTES ABSOLUTE MAN 0.36 K/uL (0.8-3.3); LYMPHOCYTES PERCENT MAN 5 % (24-44); METAMYELOCYTE ABSOLUTE MAN 0.14 K/uL; METAMYELOCYTE PERCENT MAN 2 %; MONOCYTES ABSOLUTE MAN 0.85 K/uL (0.20-0.90); MONOCYTES PERCENT MAN 12 % (2-6); SEG NEUTROPHILS PERCENT MAN 62 % (36-66)
[2022-11-16] MEDS: Levothyroxine 112 MCG Tab JTUBE SCH (07:59)
[2022-11-16] MEDS: HYDROmorphone/Normal Saline 6 MG/30 ML PCA Vial IV PRN ×2 (08:48→20:39)
[2022-11-16] MEDS ORDERED: Amiodarone 150 MG/3 ML SDV IVPUSH SCH (09:00)
[2022-11-16] MEDS: Fluconazole/Normal Saline 400 MG in Premix Bag 1 BAG IV SCH (09:09)
[2022-11-16] MEDS: Furosemide 20 MG/2 ML VIAL IV SCH ×2 (09:30→21:20)
[2022-11-16] MEDS: Potassium Phosphates 3 mMole/ML 15 ML SDV JTUBE SCH ×3 (09:30→17:00)
[2022-11-16] MEDS ORDERED: Iopamidol 612 MG/ML 100 ML Bottle IV PRN (09:53)
[2022-11-16] MEDS ORDERED: Sodium Chloride 0.9% 10 ML Syringe FLUSH PRN (09:53)
[2022-11-16] MEDS ORDERED: Sodium Chloride 0.9% 100 ML IV SCH (10:00)
[2022-11-16] MEDS: Albumin Human 25 GM in Premix Bag 1 BAG IV SCH ×2 (11:26→14:55)
[2022-11-16] MEDS: Doxycycline 100 MG in Sodium Chloride 0.9% 100 ML IV SCH ×2 (12:27→23:46)
[2022-11-16] MEDS: Hydrocortisone Sodium Succinate 100 MG/2 ML SDV IVPUSH SCH (13:20)
[2022-11-16 15:21] LABS: BASE EXCESS ARTERIAL 6.1 mm/L; BICARBONATE,ARTERIAL 29.4 mmol/L (22.0-26.0); CARBOXYHEMOGLOBIN 4.2 % (0.0-1.6); METHEMOGLOBIN 0.4 %; OXYHEMOGLOBIN 95.1 %; PCO2 ARTERIAL 38.2 mmHg (35.0-42.0); TOTAL HEMOGLOBIN 9.3 g/dL (12.0-16.0)
[2022-11-16 15:22] LABS: O2 SATURATION ARTERIAL > 99.3 % (95.0-98.0)
[2022-11-16] MEDS: Heparin Sodium 5,000 UNITS in Sodium Chloride 0.9% 500 ML IV SCH ×2 (15:46→15:49)
[2022-11-16] MEDS: Pantoprazole 40 MG Vial IVPUSH SCH (17:00)
[2022-11-16 17:13] LABS: BASE EXCESS ARTERIAL 5.3 mm/L; BICARBONATE,ARTERIAL 28.7 mmol/L (22.0-26.0); CARBOXYHEMOGLOBIN 3.2 % (0.0-1.6); METHEMOGLOBIN 0.9 %; O2 SATURATION ARTERIAL 99.3 % (95.0-98.0); OXYHEMOGLOBIN 95.2 %; PCO2 ARTERIAL 38.2 mmHg (35.0-42.0); TOTAL HEMOGLOBIN 9.2 g/dL (12.0-16.0)
[2022-11-17] MEDS: Hydrocortisone Sodium Succinate 100 MG/2 ML SDV IVPUSH SCH ×2 (00:40→13:56)
[2022-11-17] MEDS: propofoL 100 ML IV SCH ×6 (01:45→20:53)
[2022-11-17] MEDS: WATER FOR INJECTION IV SCH ×4 (02:43→21:01)
[2022-11-17] MEDS: MEROPENEM IV SCH ×4 (02:43→21:01)
[2022-11-17] MEDS: STERILE IV SCH ×4 (02:43→21:01)
[2022-11-17 04:43] LABS: BASE EXCESS ARTERIAL 6.7 mm/L; BICARBONATE,ARTERIAL 31.9 mmol/L (22.0-26.0); CARBOXYHEMOGLOBIN 2.7 % (0.0-1.6); METHEMOGLOBIN 0.8 %; O2 SATURATION ARTERIAL 98.9 % (95.0-98.0); OXYHEMOGLOBIN 95.4 %; PCO2 ARTERIAL 51.7 mmHg (35.0-42.0); TOTAL HEMOGLOBIN 9.4 g/dL (12.0-16.0)
[2022-11-17 04:46] LABS: HEMATOCRIT 27.6 % (34.3-46.0); MEAN CORPUSCULAR HEMOGLOBIN 31.1 pg (31.6-35.5); MEAN CORPUSCULAR HGB CONC 32.6 g/dL (31.6-35.5); MEAN CORPUSCULAR VOLUME 95.5 fL (81.4-99.0); PLATELET COUNT,PLT 116 K/uL (130-375); RED BLOOD CELL COUNT 2.89 M/uL (3.77-5.24); WHITE BLOOD CELL COUNT,WBC 11.7 K/uL (3.2-11.0)
[2022-11-17 05:09] LABS: A/G RATIO 0.8 (1.2-2.2); ALANINE AMINOTRANSFERASE,ALT 23 U/L (12-78); ALBUMIN 2.4 g/dL (3.4-5.0); ALKALINE PHOSPHATASE 122 U/L (46-116); ASPARTATE AMNIOTRANSFERASE,AST 18 U/L (15-37); BILIRUBIN TOTAL 0.9 mg/dL (0.2-1.0); BLOOD UREA NITROGEN,BUN 9 mg/dL (7-18); CALCIUM 7.8 mg/dL (8.5-10.1); CARBON DIOXIDE,CO2 33 mmol/L (21-32); CHLORIDE,CL 104 mmol/L (100-108); CREATININE 0.4 mg/dL (0.6-1.0); EST CRCL DRUG DOSING (CG) 146.87 mL/min; ESTIMATED GFR 114 mL/min (>60); GLUCOSE RANDOM 188 mg/dL (74-106); LACTATE DEHYDROGENASE,LDH 143 U/L (82-234); MAGNESIUM 1.8 mg/dL (1.8-2.4); PHOSPHORUS 3.5 mg/dL (2.5-4.9); POTASSIUM,K 4.1 mmol/L (3.6-5.2); PROTEIN TOTAL,TP 5.4 g/dL (6.4-8.2); SODIUM,NA 142 mmol/L (140-148)
[2022-11-17 05:19] LABS: ANION GAP 9.1 mmol/L (5.0-14.0)
[2022-11-17 05:36] LABS: BAND ABSOLUTE MAN 2.34 K/uL; BAND PERCENT MAN 20 % (5-11); LYMPHOCYTES ABSOLUTE MAN 0.23 K/uL (0.8-3.3); LYMPHOCYTES PERCENT MAN 2 % (24-44); METAMYELOCYTE ABSOLUTE MAN 0.12 K/uL; METAMYELOCYTE PERCENT MAN 1 %; MONOCYTES ABSOLUTE MAN 0.35 K/uL (0.20-0.90); MONOCYTES PERCENT MAN 3 % (2-6); NEUTROPHILS ABSOLUTE MAN 8.66 K/uL (1.0-7.6); SEG NEUTROPHILS PERCENT MAN 74 % (36-66)
[2022-11-17] MEDS: HYDROmorphone/Normal Saline 6 MG/30 ML PCA Vial IV PRN ×3 (06:01→22:38)
[2022-11-17] MEDS: Levothyroxine 112 MCG Tab JTUBE SCH (07:44)
[2022-11-17] MEDS: Fluconazole/Normal Saline 400 MG in Premix Bag 1 BAG IV SCH (09:00)
[2022-11-17] MEDS: Norepinephrine 8 MG in Dextrose 5% in Water 250 ML IV SCH ×4 (12:00→18:37)
[2022-11-17] MEDS: Doxycycline 100 MG in Sodium Chloride 0.9% 100 ML IV SCH ×2 (12:48→23:38)
[2022-11-17] MEDS: Pantoprazole 40 MG Vial IVPUSH SCH (19:51)
[2022-11-18] MEDS: Hydrocortisone Sodium Succinate 100 MG/2 ML SDV IVPUSH SCH ×2 (02:17→13:55)
[2022-11-18] MEDS: propofoL 100 ML IV SCH ×4 (02:17→20:00)
[2022-11-18] MEDS: STERILE IV SCH ×4 (02:25→21:24)
[2022-11-18] MEDS: WATER FOR INJECTION IV SCH ×4 (02:25→21:24)
[2022-11-18] MEDS: MEROPENEM IV SCH ×4 (02:25→21:24)
[2022-11-18 04:38] LABS: HEMATOCRIT 25.1 % (34.3-46.0); MEAN CORPUSCULAR HGB CONC 31.9 g/dL (31.6-35.5); MEAN CORPUSCULAR VOLUME 97.3 fL (81.4-99.0); RED BLOOD CELL COUNT 2.58 M/uL (3.77-5.24); WHITE BLOOD CELL COUNT,WBC 9.4 K/uL (3.2-11.0)
[2022-11-18 05:07] LABS: A/G RATIO 0.7 (1.2-2.2); ALANINE AMINOTRANSFERASE,ALT 19 U/L (12-78); ALBUMIN 1.9 g/dL (3.4-5.0); ALKALINE PHOSPHATASE 101 U/L (46-116); ASPARTATE AMNIOTRANSFERASE,AST 17 U/L (15-37); BILIRUBIN TOTAL 0.6 mg/dL (0.2-1.0); BLOOD UREA NITROGEN,BUN 13 mg/dL (7-18); CALCIUM 7.8 mg/dL (8.5-10.1); CARBON DIOXIDE,CO2 34 mmol/L (21-32); CHLORIDE,CL 107 mmol/L (100-108); CREATININE 0.3 mg/dL (0.6-1.0); EST CRCL DRUG DOSING (CG) 195.83 mL/min; ESTIMATED GFR 122 mL/min (>60); GLUCOSE RANDOM 137 mg/dL (74-106); MAGNESIUM 1.9 mg/dL (1.8-2.4); PHOSPHORUS 2.6 mg/dL (2.5-4.9); POTASSIUM,K 4.3 mmol/L (3.6-5.2); PRO B-TYPE NATRIUR PEPT,BNPPRO 2419 pg/mL (5-125); PROTEIN TOTAL,TP 4.8 g/dL (6.4-8.2); SODIUM,NA 144 mmol/L (140-148)
[2022-11-18 05:17] LABS: ANION GAP 7.3 mmol/L (5.0-14.0)
[2022-11-18] MEDS: HYDROmorphone/Normal Saline 6 MG/30 ML PCA Vial IV PRN ×3 (05:18→23:05)
[2022-11-18] MEDS ORDERED: Albumin Human 25 GM in Premix Bag 1 BAG IV SCH (07:30)
[2022-11-18] MEDS: Levothyroxine 112 MCG Tab JTUBE SCH (07:36)
[2022-11-18 07:48] LABS: BASE EXCESS ARTERIAL 9.5 mm/L; BICARBONATE,ARTERIAL 34.6 mmol/L (22.0-26.0); CARBOXYHEMOGLOBIN 2.1 % (0.0-1.6); METHEMOGLOBIN 0.6 %; O2 SATURATION ARTERIAL 97.3 % (95.0-98.0); OXYHEMOGLOBIN 94.7 %; PCO2 ARTERIAL 52.4 mmHg (35.0-42.0); PO2 ARTERIAL 93.4 mmHg (75.0-100.0); TOTAL HEMOGLOBIN 8.6 g/dL (12.0-16.0)
[2022-11-18] MEDS: Fluconazole/Normal Saline 400 MG in Premix Bag 1 BAG IV SCH (08:46)
[2022-11-18] MEDS ORDERED: Furosemide 20 MG/2 ML VIAL IVPUSH ONE ×2 (10:00→17:19)
[2022-11-18] MEDS: Albumin Human 25 GM in Premix Bag 1 BAG IV SCH (11:05)
[2022-11-18] MEDS: Doxycycline 100 MG in Sodium Chloride 0.9% 100 ML IV SCH (12:26)
[2022-11-18] MEDS: Amiodarone 200 MG Tab JTUBE SCH (14:15)
[2022-11-18] MEDS: Pantoprazole 40 MG Vial IVPUSH SCH (16:07)
[2022-11-18] MEDS: Sodium Chloride 0.9% 1,000 ML IV SCH (16:57)
[2022-11-18] MEDS: Norepinephrine 8 MG in Dextrose 5% in Water 250 ML IV SCH ×2 (21:51)
[2022-11-19] MEDS: Doxycycline 100 MG in Sodium Chloride 0.9% 100 ML IV SCH ×2 (00:02→12:06)
[2022-11-19] MEDS: propofoL 100 ML IV SCH ×5 (01:21→22:13)
[2022-11-19] MEDS: Hydrocortisone Sodium Succinate 100 MG/2 ML SDV IVPUSH SCH ×2 (01:26→13:25)
[2022-11-19] MEDS ORDERED: Digoxin 500 MCG/2 ML Amp IVPUSH ONE ×4 (03:05→06:29)
[2022-11-19] MEDS ORDERED: Digoxin 500 MCG/2 ML Amp ONE (03:08)
[2022-11-19] MEDS: WATER FOR INJECTION IV SCH ×4 (03:23→21:34)
[2022-11-19] MEDS: MEROPENEM IV SCH ×4 (03:23→21:34)
[2022-11-19] MEDS: STERILE IV SCH ×4 (03:23→21:34)
[2022-11-19 04:35] LABS: BASE EXCESS ARTERIAL 7.9 mm/L; BICARBONATE,ARTERIAL 32.1 mmol/L (22.0-26.0); CARBOXYHEMOGLOBIN 3.4 % (0.0-1.6); METHEMOGLOBIN 0.7 %; O2 SATURATION ARTERIAL 98.9 % (95.0-98.0); OXYHEMOGLOBIN 94.8 %; PCO2 ARTERIAL 44.5 mmHg (35.0-42.0); TOTAL HEMOGLOBIN 10.3 g/dL (12.0-16.0)
[2022-11-19 04:38] LABS: HEMATOCRIT 30.3 % (34.3-46.0); HEMOGLOBIN 9.8 g/dL (11.2-15.5); MEAN CORPUSCULAR HEMOGLOBIN 30.6 pg (31.6-35.5); MEAN CORPUSCULAR HGB CONC 32.3 g/dL (31.6-35.5); MEAN CORPUSCULAR VOLUME 94.7 fL (81.4-99.0); RED BLOOD CELL COUNT 3.2 M/uL (3.77-5.24)
[2022-11-19 05:14] LABS: A/G RATIO 0.6 (1.2-2.2); ALANINE AMINOTRANSFERASE,ALT 27 U/L (12-78); ALKALINE PHOSPHATASE 112 U/L (46-116); ASPARTATE AMNIOTRANSFERASE,AST 25 U/L (15-37); BLOOD UREA NITROGEN,BUN 14 mg/dL (7-18); CALCIUM 7.9 mg/dL (8.5-10.1); CARBON DIOXIDE,CO2 33 mmol/L (21-32); CHLORIDE,CL 105 mmol/L (100-108); CREATININE 0.3 mg/dL (0.6-1.0); EST CRCL DRUG DOSING (CG) 195.83 mL/min; ESTIMATED GFR 122 mL/min (>60); GLUCOSE RANDOM 163 mg/dL (74-106); MAGNESIUM 1.8 mg/dL (1.8-2.4); POTASSIUM,K 3.8 mmol/L (3.6-5.2); PRO B-TYPE NATRIUR PEPT,BNPPRO 3266 pg/mL (5-125); PROTEIN TOTAL,TP 5.2 g/dL (6.4-8.2); SODIUM,NA 144 mmol/L (140-148)
[2022-11-19 05:48] LABS: ANION GAP 9.8 mmol/L (5.0-14.0)
[2022-11-19] MEDS: Levothyroxine 112 MCG Tab JTUBE SCH (08:08)
[2022-11-19] MEDS: HYDROmorphone/Normal Saline 6 MG/30 ML PCA Vial IV PRN ×2 (08:19→17:50)
[2022-11-19] MEDS: Metoprolol Tartrate 5 MG/5 ML SDV IVPUSH SCH ×4 (08:45→20:27)
[2022-11-19] MEDS: Fluconazole/Normal Saline 400 MG in Premix Bag 1 BAG IV SCH (09:04)
[2022-11-19] MEDS: Amiodarone 200 MG Tab JTUBE SCH (10:12)
[2022-11-19] MEDS: Albumin Human 25 GM in Premix Bag 1 BAG IV SCH (11:15)
[2022-11-19] MEDS: Norepinephrine 8 MG in Dextrose 5% in Water 250 ML IV SCH ×2 (12:00)
[2022-11-19] MEDS ORDERED: Furosemide 40 MG/4 ML VIAL IVPUSH ONE (15:25)
[2022-11-19] MEDS: Heparin Sodium 5,000 UNITS in Sodium Chloride 0.9% 500 ML IV SCH ×2 (15:29→15:30)
[2022-11-19] MEDS: Pantoprazole 40 MG Vial IVPUSH SCH (16:07)
[2022-11-19] MEDS: Furosemide 20 MG/2 ML VIAL IVPUSH SCH (22:15)
[2022-11-20] MEDS: Metoprolol Tartrate 5 MG/5 ML SDV IVPUSH SCH ×7 (00:51→23:47)
[2022-11-20] MEDS: Doxycycline 100 MG in Sodium Chloride 0.9% 100 ML IV SCH ×3 (01:00→23:54)
[2022-11-20] MEDS: STERILE IV SCH ×4 (02:30→20:26)
[2022-11-20] MEDS: MEROPENEM IV SCH ×4 (02:30→20:26)
[2022-11-20] MEDS: WATER FOR INJECTION IV SCH ×4 (02:30→20:26)
[2022-11-20] MEDS: propofoL 100 ML IV SCH ×5 (02:45→22:07)
[2022-11-20] MEDS ORDERED: Acetaminophen 1,000 MG in Premix Bag 1 BAG IV PRN (03:02)
[2022-11-20] MEDS: HYDROmorphone/Normal Saline 6 MG/30 ML PCA Vial IV PRN ×2 (04:01→15:40)
[2022-11-20 04:22] LABS: BASE EXCESS ARTERIAL 10.1 mm/L; BICARBONATE,ARTERIAL 33.5 mmol/L (22.0-26.0); CARBOXYHEMOGLOBIN 2.7 % (0.0-1.6); METHEMOGLOBIN 0.6 %; O2 SATURATION ARTERIAL 98.9 % (95.0-98.0); OXYHEMOGLOBIN 95.6 %; PCO2 ARTERIAL 39.4 mmHg (35.0-42.0); TOTAL HEMOGLOBIN 9.1 g/dL (12.0-16.0)
[2022-11-20 04:52] LABS: A/G RATIO 0.9 (1.2-2.2); ALANINE AMINOTRANSFERASE,ALT 28 U/L (12-78); ALBUMIN 2.2 g/dL (3.4-5.0); ALKALINE PHOSPHATASE 96 U/L (46-116); ASPARTATE AMNIOTRANSFERASE,AST 25 U/L (15-37); BILIRUBIN TOTAL 0.9 mg/dL (0.2-1.0); BLOOD UREA NITROGEN,BUN 13 mg/dL (7-18); CALCIUM 7.6 mg/dL (8.5-10.1); CARBON DIOXIDE,CO2 34 mmol/L (21-32); CHLORIDE,CL 105 mmol/L (100-108); CREATININE 0.4 mg/dL (0.6-1.0); EST CRCL DRUG DOSING (CG) 146.87 mL/min; ESTIMATED GFR 114 mL/min (>60); GLUCOSE RANDOM 125 mg/dL (74-106); MAGNESIUM 1.8 mg/dL (1.8-2.4); PHOSPHORUS 2.7 mg/dL (2.5-4.9); POTASSIUM,K 3.2 mmol/L (3.6-5.2); PRO B-TYPE NATRIUR PEPT,BNPPRO 3641 pg/mL (5-125); PROTEIN TOTAL,TP 4.7 g/dL (6.4-8.2); SODIUM,NA 145 mmol/L (140-148)
[2022-11-20 05:12] LABS: ANION GAP 9.2 mmol/L (5.0-14.0)
[2022-11-20 06:32] LABS: BASOPHILS ABSOLUTE AUTO 0.03 K/uL (0.00-0.10); BASOPHILS PERCENT AUTO 0.3 % (0.1-1.3); EOSINOPHILS PERCENT AUTO 0.9 % (0.0-5.4); HEMATOCRIT 26.5 % (34.3-46.0); HEMOGLOBIN 8.7 g/dL (11.2-15.5); IMMATURE GRAN ABSOLUTE AUTO 0.09 K/uL (0.00-0.23); IMMATURE GRAN PERCENT AUTO 0.8 % (0.0-0.7); LYMPHOCYTES ABSOLUTE AUTO 0.51 K/uL (0.8-3.3); LYMPHOCYTES PERCENT AUTO 4.7 % (11.4-47.7); MEAN CORPUSCULAR HEMOGLOBIN 31.2 pg (31.6-35.5); MEAN CORPUSCULAR HGB CONC 32.8 g/dL (31.6-35.5); MONOCYTES ABSOLUTE AUTO 0.55 K/uL (0.20-0.90); MONOCYTES PERCENT AUTO 5.1 % (3.3-12.6); NEUTROPHILS ABSOLUTE AUTO 9.61 K/uL (1.0-7.6); NEUTROPHILS PERCENT AUTO 88.2 % (40.0-78.1); PLATELET COUNT,PLT 109 K/uL (130-375); RED BLOOD CELL COUNT 2.79 M/uL (3.77-5.24); WHITE BLOOD CELL COUNT,WBC 10.9 K/uL (3.2-11.0)
[2022-11-20] MEDS: Furosemide 20 MG/2 ML VIAL IVPUSH SCH ×2 (08:06→14:52)
[2022-11-20] MEDS: Norepinephrine 8 MG in Dextrose 5% in Water 250 ML IV SCH ×2 (08:23)
[2022-11-20] MEDS: Levothyroxine 112 MCG Tab JTUBE SCH (08:44)
[2022-11-20] MEDS: Hypromellose 0.3% Ophth Soln 15 ML Bottle EYEBOTH SCH ×15 (08:52→23:06)
[2022-11-20] MEDS: Fluconazole/Normal Saline 400 MG in Premix Bag 1 BAG IV SCH (08:55)
[2022-11-20] MEDS ORDERED: Potassium Phosphates 3 mMole/ML 15 ML SDV JTUBE ONE ×2 (09:00→17:47)
[2022-11-20] MEDS ORDERED: Iopamidol 612 MG/ML 500 ML Multipack Bottle IV ONE (10:59)
[2022-11-20] MEDS ORDERED: Sodium Chloride 0.9% 10 ML Syringe FLUSH ONE (10:59)
[2022-11-20] MEDS ORDERED: Sodium Chloride 0.9% 50 ML IV SCH (11:00)
[2022-11-20] MEDS: Albumin Human 25 GM in Premix Bag 1 BAG IV SCH (12:16)
[2022-11-20] MEDS: Lidocaine 1% 20 ML MDV INJECT ONE ×2 (12:18→14:56)
[2022-11-20] MEDS: DEXTROSE 5% IV SCH (14:37)
[2022-11-20] MEDS: AMIODARONE IV SCH (14:37)
[2022-11-20] MEDS: WATER IV SCH (14:37)
[2022-11-20] MEDS: Pantoprazole 40 MG Vial IVPUSH SCH (16:05)
[2022-11-20 17:11] LABS: ANION GAP 11.4 mmol/L (5.0-14.0); CALCIUM 7.7 mg/dL (8.5-10.1); CREATININE 0.4 mg/dL (0.6-1.0); EST CRCL DRUG DOSING (CG) 146.87 mL/min; POTASSIUM,K 3.4 mmol/L (3.6-5.2)
[2022-11-21] MEDS: Hypromellose 0.3% Ophth Soln 15 ML Bottle EYEBOTH SCH ×15 (01:01→22:43)
[2022-11-21] MEDS: Furosemide 20 MG/2 ML VIAL IVPUSH SCH ×4 (01:02→22:30)
[2022-11-21] MEDS: HYDROmorphone/Normal Saline 6 MG/30 ML PCA Vial IV PRN (01:45)
[2022-11-21] MEDS: propofoL 100 ML IV SCH ×4 (02:12→21:12)
[2022-11-21] MEDS ORDERED: Digoxin 500 MCG/2 ML Amp IVPUSH ONE (03:07)
[2022-11-21] MEDS: WATER FOR INJECTION IV SCH ×4 (03:19→20:30)
[2022-11-21] MEDS: MEROPENEM IV SCH ×4 (03:19→20:30)
[2022-11-21] MEDS: STERILE IV SCH ×4 (03:19→20:30)
[2022-11-21] MEDS ORDERED: Acetaminophen 1,000 MG in Premix Bag 1 BAG IV ONE (03:47)
[2022-11-21] MEDS: Metoprolol Tartrate 5 MG/5 ML SDV IVPUSH SCH ×5 (04:05→19:26)
[2022-11-21 04:29] LABS: BASE EXCESS ARTERIAL 7.8 mm/L; CARBOXYHEMOGLOBIN 3.8 % (0.0-1.6); METHEMOGLOBIN 0.7 %; O2 SATURATION ARTERIAL 99.3 % (95.0-98.0); OXYHEMOGLOBIN 94.8 %; PCO2 ARTERIAL 38.3 mmHg (35.0-42.0); TOTAL HEMOGLOBIN 9.3 g/dL (12.0-16.0)
[2022-11-21 04:30] LABS: BASOPHILS ABSOLUTE AUTO 0.04 K/uL (0.00-0.10); BASOPHILS PERCENT AUTO 0.3 % (0.1-1.3); EOSINOPHILS ABSOLUTE AUTO 0.14 K/uL (0.00-0.40); HEMATOCRIT 27.3 % (34.3-46.0); IMMATURE GRAN PERCENT AUTO 0.7 % (0.0-0.7); LYMPHOCYTES ABSOLUTE AUTO 0.43 K/uL (0.8-3.3); LYMPHOCYTES PERCENT AUTO 3.2 % (11.4-47.7); MEAN CORPUSCULAR HEMOGLOBIN 30.9 pg (31.6-35.5); MEAN CORPUSCULAR VOLUME 93.8 fL (81.4-99.0); MONOCYTES PERCENT AUTO 5.1 % (3.3-12.6); NEUTROPHILS ABSOLUTE AUTO 12.22 K/uL (1.0-7.6); NEUTROPHILS PERCENT AUTO 89.7 % (40.0-78.1); PLATELET COUNT,PLT 144 K/uL (130-375); RED BLOOD CELL COUNT 2.91 M/uL (3.77-5.24); WHITE BLOOD CELL COUNT,WBC 13.6 K/uL (3.2-11.0)
[2022-11-21 05:00] LABS: A/G RATIO 0.8 (1.2-2.2); ALANINE AMINOTRANSFERASE,ALT 27 U/L (12-78); ALBUMIN 2.1 g/dL (3.4-5.0); ALKALINE PHOSPHATASE 105 U/L (46-116); ANION GAP 7.5 mmol/L (5.0-14.0); ASPARTATE AMNIOTRANSFERASE,AST 24 U/L (15-37); BLOOD UREA NITROGEN,BUN 11 mg/dL (7-18); CALCIUM 7.5 mg/dL (8.5-10.1); CARBON DIOXIDE,CO2 31 mmol/L (21-32); CHLORIDE,CL 103 mmol/L (100-108); CREATININE 0.4 mg/dL (0.6-1.0); EST CRCL DRUG DOSING (CG) 146.87 mL/min; ESTIMATED GFR 114 mL/min (>60); GLUCOSE RANDOM 145 mg/dL (74-106); MAGNESIUM 1.7 mg/dL (1.8-2.4); PHOSPHORUS 3.7 mg/dL (2.5-4.9); POTASSIUM,K 4.1 mmol/L (3.6-5.2); PRO B-TYPE NATRIUR PEPT,BNPPRO 1977 pg/mL (5-125); PROTEIN TOTAL,TP 4.8 g/dL (6.4-8.2); SODIUM,NA 141 mmol/L (140-148)
[2022-11-21] MEDS: WATER IV SCH ×3 (05:03→19:59)
[2022-11-21] MEDS: DEXTROSE 5% IV SCH ×3 (05:03→19:59)
[2022-11-21] MEDS: AMIODARONE IV SCH ×3 (05:03→19:59)
[2022-11-21] MEDS ORDERED: Sodium Chloride 0.9% 500 ML IV ONE (05:20)
[2022-11-21] MEDS: Levothyroxine 112 MCG Tab JTUBE SCH (07:52)
[2022-11-21] MEDS: Acetaminophen 1,000 MG in Premix Bag 1 BAG IV SCH ×3 (08:48→20:44)
[2022-11-21] MEDS: Magnesium Sulfate/Water 2 GM/50 ML BAG IV SCH ×3 (09:45→22:27)
[2022-11-21] MEDS: Albumin Human 25 GM in Premix Bag 1 BAG IV SCH (10:52)
[2022-11-21] MEDS: Loperamide 1 MG/7.5 ML 7.5 ML UD Cup FTUBE PRN ×3 (10:55→22:20)
[2022-11-21] MEDS: Heparin Sodium 5,000 UNITS in Sodium Chloride 0.9% 500 ML IV SCH ×2 (11:02→11:04)
[2022-11-21] MEDS: Doxycycline 100 MG in Sodium Chloride 0.9% 100 ML IV SCH (11:51)
[2022-11-21] MEDS: Norepinephrine 8 MG in Dextrose 5% in Water 250 ML IV SCH ×2 (14:41)
[2022-11-21] MEDS: Pantoprazole 40 MG Vial IVPUSH SCH (16:51)
[2022-11-21] MEDS: HYDROmorphone 0.5 MG/0.5 ML Syringe IVPUSH PRN (22:19)
[2022-11-22] MEDS: Doxycycline 100 MG in Sodium Chloride 0.9% 100 ML IV SCH ×3 (00:05→23:56)
[2022-11-22] MEDS: Hypromellose 0.3% Ophth Soln 15 ML Bottle EYEBOTH SCH ×12 (00:12→22:19)
[2022-11-22] MEDS: Metoprolol Tartrate 5 MG/5 ML SDV IVPUSH SCH ×7 (00:15→23:55)
[2022-11-22] MEDS: propofoL 100 ML IV SCH ×6 (01:03→23:20)
[2022-11-22] MEDS: STERILE IV SCH ×4 (02:49→20:57)
[2022-11-22] MEDS: MEROPENEM IV SCH ×4 (02:49→20:57)
[2022-11-22] MEDS: WATER FOR INJECTION IV SCH ×4 (02:49→20:57)
[2022-11-22] MEDS: Acetaminophen 1,000 MG in Premix Bag 1 BAG IV SCH (02:56)
[2022-11-22] MEDS: Magnesium Sulfate/Water 2 GM/50 ML BAG IV SCH ×4 (04:14→22:20)
[2022-11-22 05:27] LABS: BASE EXCESS ARTERIAL 8.5 mm/L; BICARBONATE,ARTERIAL 30.8 mmol/L (22.0-26.0); CARBOXYHEMOGLOBIN 2.9 % (0.0-1.6); METHEMOGLOBIN 0.9 %; O2 SATURATION ARTERIAL 99.3 % (95.0-98.0); OXYHEMOGLOBIN 95.5 %; PCO2 ARTERIAL 32.2 mmHg (35.0-42.0); TOTAL HEMOGLOBIN 9.3 g/dL (12.0-16.0)
[2022-11-22 05:30] LABS: BASOPHILS ABSOLUTE AUTO 0.03 K/uL (0.00-0.10); BASOPHILS PERCENT AUTO 0.3 % (0.1-1.3); EOSINOPHILS ABSOLUTE AUTO 0.16 K/uL (0.00-0.40); EOSINOPHILS PERCENT AUTO 1.8 % (0.0-5.4); HEMATOCRIT 26.8 % (34.3-46.0); HEMOGLOBIN 8.8 g/dL (11.2-15.5); IMMATURE GRAN ABSOLUTE AUTO 0.07 K/uL (0.00-0.23); IMMATURE GRAN PERCENT AUTO 0.8 % (0.0-0.7); LYMPHOCYTES ABSOLUTE AUTO 0.39 K/uL (0.8-3.3); LYMPHOCYTES PERCENT AUTO 4.3 % (11.4-47.7); MEAN CORPUSCULAR HEMOGLOBIN 30.3 pg (31.6-35.5); MEAN CORPUSCULAR HGB CONC 32.8 g/dL (31.6-35.5); MEAN CORPUSCULAR VOLUME 92.4 fL (81.4-99.0); MONOCYTES ABSOLUTE AUTO 0.44 K/uL (0.20-0.90); MONOCYTES PERCENT AUTO 4.8 % (3.3-12.6); NEUTROPHILS ABSOLUTE AUTO 8.04 K/uL (1.0-7.6); PLATELET COUNT,PLT 154 K/uL (130-375); WHITE BLOOD CELL COUNT,WBC 9.1 K/uL (3.2-11.0)
[2022-11-22] MEDS: Norepinephrine 8 MG in Dextrose 5% in Water 250 ML IV SCH ×2 (05:50)
[2022-11-22 05:52] LABS: A/G RATIO 0.7 (1.2-2.2); ALANINE AMINOTRANSFERASE,ALT 28 U/L (12-78); ALBUMIN 2.2 g/dL (3.4-5.0); ALKALINE PHOSPHATASE 107 U/L (46-116); ASPARTATE AMNIOTRANSFERASE,AST 18 U/L (15-37); BILIRUBIN TOTAL 0.8 mg/dL (0.2-1.0); BLOOD UREA NITROGEN,BUN 10 mg/dL (7-18); CALCIUM 7.7 mg/dL (8.5-10.1); CARBON DIOXIDE,CO2 31 mmol/L (21-32); CHLORIDE,CL 105 mmol/L (100-108); CREATININE 0.4 mg/dL (0.6-1.0); EST CRCL DRUG DOSING (CG) 146.87 mL/min; ESTIMATED GFR 114 mL/min (>60); GLUCOSE RANDOM 160 mg/dL (74-106); PHOSPHORUS 2.5 mg/dL (2.5-4.9); POTASSIUM,K 3.2 mmol/L (3.6-5.2); PRO B-TYPE NATRIUR PEPT,BNPPRO 723 pg/mL (5-125); PROTEIN TOTAL,TP 5.3 g/dL (6.4-8.2); SODIUM,NA 141 mmol/L (140-148)
[2022-11-22 06:07] LABS: ANION GAP 8.2 mmol/L (5.0-14.0)
[2022-11-22] MEDS: Furosemide 20 MG/2 ML VIAL IVPUSH SCH ×3 (07:35→22:26)
[2022-11-22] MEDS: Levothyroxine 112 MCG Tab JTUBE SCH (07:36)
[2022-11-22] MEDS: Albumin Human 25 GM in Premix Bag 1 BAG IV SCH (09:41)
[2022-11-22] MEDS: DEXTROSE 5% IV SCH ×2 (09:49→10:29)
[2022-11-22] MEDS: AMIODARONE IV SCH ×2 (09:49→10:29)
[2022-11-22] MEDS: WATER IV SCH ×2 (09:49→10:29)
[2022-11-22] MEDS ORDERED: Lidocaine 4% Top Soln 50 ML Bottle ONE (09:56)
[2022-11-22] MEDS ORDERED: Lidocaine 2% Viscous Solution 15 ML UD ONE (09:56)
[2022-11-22] MEDS ORDERED: Potassium Phosphates 3 mMole/ML 15 ML SDV JTUBE ONE (10:00)
[2022-11-22] MEDS: Acetylcysteine 20% 200 MG/ML 4 ML Nebulizer Soln SDV NEB SCH ×2 (12:27→22:19)
[2022-11-22] MEDS: Micafungin 100 MG in Sodium Chloride 0.9% 100 ML IV SCH (12:40)
[2022-11-22] MEDS: HYDROmorphone 0.5 MG/0.5 ML Syringe IVPUSH PRN ×2 (15:25→23:19)
[2022-11-22] MEDS: Loperamide 1 MG/7.5 ML 7.5 ML UD Cup FTUBE PRN (16:10)
[2022-11-22] MEDS: Pantoprazole 40 MG Vial IVPUSH SCH (16:21)
[2022-11-23] MEDS: WATER IV SCH ×2 (00:16→02:30)
[2022-11-23] MEDS: DEXTROSE 5% IV SCH ×2 (00:16→02:30)
[2022-11-23] MEDS: AMIODARONE IV SCH ×2 (00:16→02:30)
[2022-11-23] MEDS: Hypromellose 0.3% Ophth Soln 15 ML Bottle EYEBOTH SCH ×12 (00:18→22:07)
[2022-11-23] MEDS: MEROPENEM IV SCH ×2 (02:50→09:43)
[2022-11-23] MEDS: STERILE IV SCH ×2 (02:50→09:43)
[2022-11-23] MEDS: WATER FOR INJECTION IV SCH ×2 (02:50→09:43)
[2022-11-23] MEDS: propofoL 100 ML IV SCH ×4 (02:59→22:04)
[2022-11-23] MEDS: Metoprolol Tartrate 5 MG/5 ML SDV IVPUSH SCH ×5 (03:53→19:40)
[2022-11-23] MEDS: Magnesium Sulfate/Water 2 GM/50 ML BAG IV SCH (03:53)
[2022-11-23 04:14] LABS: BASOPHILS ABSOLUTE AUTO 0.04 K/uL (0.00-0.10); BASOPHILS PERCENT AUTO 0.5 % (0.1-1.3); EOSINOPHILS ABSOLUTE AUTO 0.19 K/uL (0.00-0.40); EOSINOPHILS PERCENT AUTO 2.4 % (0.0-5.4); HEMATOCRIT 24.8 % (34.3-46.0); HEMOGLOBIN 8.1 g/dL (11.2-15.5); IMMATURE GRAN ABSOLUTE AUTO 0.03 K/uL (0.00-0.23); IMMATURE GRAN PERCENT AUTO 0.4 % (0.0-0.7); LYMPHOCYTES ABSOLUTE AUTO 0.36 K/uL (0.8-3.3); LYMPHOCYTES PERCENT AUTO 4.5 % (11.4-47.7); MEAN CORPUSCULAR HEMOGLOBIN 30.6 pg (31.6-35.5); MEAN CORPUSCULAR HGB CONC 32.7 g/dL (31.6-35.5); MEAN CORPUSCULAR VOLUME 93.6 fL (81.4-99.0); MONOCYTES ABSOLUTE AUTO 0.55 K/uL (0.20-0.90); MONOCYTES PERCENT AUTO 6.9 % (3.3-12.6); NEUTROPHILS ABSOLUTE AUTO 6.84 K/uL (1.0-7.6); NEUTROPHILS PERCENT AUTO 85.3 % (40.0-78.1); PLATELET COUNT,PLT 159 K/uL (130-375); RED BLOOD CELL COUNT 2.65 M/uL (3.77-5.24)
[2022-11-23 04:22] LABS: CARBOXYHEMOGLOBIN 3.5 % (0.0-1.6); METHEMOGLOBIN 0.7 %; OXYHEMOGLOBIN 95.4 %; PCO2 ARTERIAL 34.8 mmHg (35.0-42.0); TOTAL HEMOGLOBIN 8.5 g/dL (12.0-16.0)
[2022-11-23 04:23] LABS: BASE EXCESS ARTERIAL 8 mm/L; O2 SATURATION ARTERIAL > 99.3 % (95.0-98.0)
[2022-11-23] MEDS: HYDROmorphone 0.5 MG/0.5 ML Syringe IVPUSH PRN ×2 (04:30→19:39)
[2022-11-23 04:38] LABS: A/G RATIO 0.7 (1.2-2.2); ALANINE AMINOTRANSFERASE,ALT 24 U/L (12-78); ALBUMIN 2.2 g/dL (3.4-5.0); ALKALINE PHOSPHATASE 102 U/L (46-116); ASPARTATE AMNIOTRANSFERASE,AST 37 U/L (15-37); BILIRUBIN TOTAL 0.7 mg/dL (0.2-1.0); BLOOD UREA NITROGEN,BUN 11 mg/dL (7-18); CALCIUM 7.5 mg/dL (8.5-10.1); CARBON DIOXIDE,CO2 31 mmol/L (21-32); CHLORIDE,CL 106 mmol/L (100-108); CREATININE 0.4 mg/dL (0.6-1.0); EST CRCL DRUG DOSING (CG) 146.87 mL/min; ESTIMATED GFR 114 mL/min (>60); GLUCOSE RANDOM 123 mg/dL (74-106); MAGNESIUM 2.2 mg/dL (1.8-2.4); PHOSPHORUS 3.8 mg/dL (2.5-4.9); POTASSIUM,K 3.4 mmol/L (3.6-5.2); PRO B-TYPE NATRIUR PEPT,BNPPRO 260 pg/mL (5-125); PROTEIN TOTAL,TP 5.3 g/dL (6.4-8.2); SODIUM,NA 143 mmol/L (140-148)
[2022-11-23 04:50] LABS: ANION GAP 9.4 mmol/L (5.0-14.0)
[2022-11-23] MEDS: Furosemide 20 MG/2 ML VIAL IVPUSH SCH (06:26)
[2022-11-23] MEDS: Levothyroxine 112 MCG Tab JTUBE SCH (06:35)
[2022-11-23] MEDS: Acetylcysteine 20% 200 MG/ML 4 ML Nebulizer Soln SDV NEB SCH ×3 (07:00→20:47)
[2022-11-23] MEDS: Norepinephrine 8 MG in Dextrose 5% in Water 250 ML IV SCH ×2 (08:18)
[2022-11-23] MEDS ORDERED: Amiodarone 200 MG Tab PO SCH (10:30)
[2022-11-23] MEDS ORDERED: Potassium Phosphates 3 mMole/ML 15 ML SDV JTUBE ONE (11:00)
[2022-11-23] MEDS: Albumin Human 25 GM in Premix Bag 1 BAG IV SCH (11:10)
[2022-11-23] MEDS: Micafungin 100 MG in Sodium Chloride 0.9% 100 ML IV SCH (13:15)
[2022-11-23] MEDS: Loperamide 1 MG/7.5 ML 7.5 ML UD Cup FTUBE PRN (15:44)
[2022-11-23] MEDS: Pantoprazole 40 MG Vial IVPUSH SCH (17:14)
[2022-11-24] MEDS: Hypromellose 0.3% Ophth Soln 15 ML Bottle EYEBOTH SCH ×12 (00:06→23:46)
[2022-11-24] MEDS: Metoprolol Tartrate 5 MG/5 ML SDV IVPUSH SCH ×6 (00:06→20:57)
[2022-11-24] MEDS: propofoL 100 ML IV SCH ×4 (01:47→18:37)
[2022-11-24 04:36] LABS: BASE EXCESS ARTERIAL 4.1 mm/L; BICARBONATE,ARTERIAL 26.7 mmol/L (22.0-26.0); CARBOXYHEMOGLOBIN 2.6 % (0.0-1.6); METHEMOGLOBIN 0.8 %; O2 SATURATION ARTERIAL 98.7 % (95.0-98.0); OXYHEMOGLOBIN 95.3 %; PCO2 ARTERIAL 32.7 mmHg (35.0-42.0); TOTAL HEMOGLOBIN 9.2 g/dL (12.0-16.0)
[2022-11-24 04:44] LABS: BASOPHILS ABSOLUTE AUTO 0.04 K/uL (0.00-0.10); BASOPHILS PERCENT AUTO 0.6 % (0.1-1.3); EOSINOPHILS ABSOLUTE AUTO 0.22 K/uL (0.00-0.40); EOSINOPHILS PERCENT AUTO 3.1 % (0.0-5.4); HEMATOCRIT 26.7 % (34.3-46.0); HEMOGLOBIN 8.8 g/dL (11.2-15.5); IMMATURE GRAN ABSOLUTE AUTO 0.04 K/uL (0.00-0.23); IMMATURE GRAN PERCENT AUTO 0.6 % (0.0-0.7); LYMPHOCYTES ABSOLUTE AUTO 0.33 K/uL (0.8-3.3); LYMPHOCYTES PERCENT AUTO 4.6 % (11.4-47.7); MEAN CORPUSCULAR HEMOGLOBIN 31.1 pg (31.6-35.5); MEAN CORPUSCULAR VOLUME 94.3 fL (81.4-99.0); MONOCYTES ABSOLUTE AUTO 0.47 K/uL (0.20-0.90); MONOCYTES PERCENT AUTO 6.6 % (3.3-12.6); NEUTROPHILS ABSOLUTE AUTO 6.04 K/uL (1.0-7.6); NEUTROPHILS PERCENT AUTO 84.5 % (40.0-78.1); PLATELET COUNT,PLT 163 K/uL (130-375); RED BLOOD CELL COUNT 2.83 M/uL (3.77-5.24); WHITE BLOOD CELL COUNT,WBC 7.1 K/uL (3.2-11.0)
[2022-11-24 05:03] LABS: A/G RATIO 0.8 (1.2-2.2); ALANINE AMINOTRANSFERASE,ALT 26 U/L (12-78); ALBUMIN 2.5 g/dL (3.4-5.0); ALKALINE PHOSPHATASE 114 U/L (46-116); ASPARTATE AMNIOTRANSFERASE,AST 25 U/L (15-37); BILIRUBIN TOTAL 0.7 mg/dL (0.2-1.0); BLOOD UREA NITROGEN,BUN 13 mg/dL (7-18); CALCIUM 8.1 mg/dL (8.5-10.1); CARBON DIOXIDE,CO2 27 mmol/L (21-32); CHLORIDE,CL 109 mmol/L (100-108); CREATININE 0.4 mg/dL (0.6-1.0); EST CRCL DRUG DOSING (CG) 146.87 mL/min; ESTIMATED GFR 114 mL/min (>60); GLUCOSE RANDOM 142 mg/dL (74-106); MAGNESIUM 1.8 mg/dL (1.8-2.4); PHOSPHORUS 3.6 mg/dL (2.5-4.9); POTASSIUM,K 3.7 mmol/L (3.6-5.2); PRO B-TYPE NATRIUR PEPT,BNPPRO 207 pg/mL (5-125); PROTEIN TOTAL,TP 5.7 g/dL (6.4-8.2); SODIUM,NA 144 mmol/L (140-148)
[2022-11-24 05:08] LABS: ANION GAP 11.7 mmol/L (5.0-14.0)
[2022-11-24] MEDS: HYDROmorphone 0.5 MG/0.5 ML Syringe IVPUSH PRN ×3 (06:47→20:50)
[2022-11-24] MEDS: Acetylcysteine 20% 200 MG/ML 4 ML Nebulizer Soln SDV NEB SCH ×3 (07:21→22:51)
[2022-11-24] MEDS: Levothyroxine 112 MCG Tab JTUBE SCH (08:00)
[2022-11-24] MEDS: Amiodarone 200 MG Tab JTUBE SCH (08:32)
[2022-11-24] MEDS ORDERED: Potassium Phosphates 3 mMole/ML 15 ML SDV JTUBE ONE (09:00)
[2022-11-24] MEDS: Albumin Human 25 GM in Premix Bag 1 BAG IV SCH (09:49)
[2022-11-24] MEDS: Heparin Sodium 5,000 UNITS in Sodium Chloride 0.9% 500 ML IV SCH ×2 (10:11→10:12)
[2022-11-24] MEDS: Micafungin 100 MG in Sodium Chloride 0.9% 100 ML IV SCH (13:09)
[2022-11-24] MEDS: Loperamide 1 MG/7.5 ML 7.5 ML UD Cup FTUBE PRN (15:35)
[2022-11-24] MEDS: Pantoprazole 40 MG Vial IVPUSH SCH (16:20)
[2022-11-25] MEDS: HYDROmorphone 0.5 MG/0.5 ML Syringe IVPUSH PRN ×5 (01:10→22:41)
[2022-11-25] MEDS: Hypromellose 0.3% Ophth Soln 15 ML Bottle EYEBOTH SCH ×12 (01:15→22:02)
[2022-11-25] MEDS: propofoL 100 ML IV SCH ×3 (01:17→20:45)
[2022-11-25] MEDS: Metoprolol Tartrate 5 MG/5 ML SDV IVPUSH SCH ×4 (01:52→12:58)
[2022-11-25] MEDS ORDERED: Sodium Chloride 0.9% 500 ML IV ONE ×2 (02:24→14:15)
[2022-11-25 05:05] LABS: BASOPHILS ABSOLUTE AUTO 0.03 K/uL (0.00-0.10); BASOPHILS PERCENT AUTO 0.5 % (0.1-1.3); EOSINOPHILS ABSOLUTE AUTO 0.17 K/uL (0.00-0.40); EOSINOPHILS PERCENT AUTO 2.8 % (0.0-5.4); HEMATOCRIT 24.3 % (34.3-46.0); IMMATURE GRAN ABSOLUTE AUTO 0.03 K/uL (0.00-0.23); IMMATURE GRAN PERCENT AUTO 0.5 % (0.0-0.7); LYMPHOCYTES ABSOLUTE AUTO 0.32 K/uL (0.8-3.3); LYMPHOCYTES PERCENT AUTO 5.2 % (11.4-47.7); MEAN CORPUSCULAR HEMOGLOBIN 31.6 pg (31.6-35.5); MEAN CORPUSCULAR HGB CONC 32.9 g/dL (31.6-35.5); MONOCYTES ABSOLUTE AUTO 0.49 K/uL (0.20-0.90); NEUTROPHILS ABSOLUTE AUTO 5.09 K/uL (1.0-7.6); PLATELET COUNT,PLT 161 K/uL (130-375); RED BLOOD CELL COUNT 2.53 M/uL (3.77-5.24); WHITE BLOOD CELL COUNT,WBC 6.1 K/uL (3.2-11.0)
[2022-11-25 05:12] LABS: BICARBONATE,ARTERIAL 24.8 mmol/L (22.0-26.0); CARBOXYHEMOGLOBIN 4.2 % (0.0-1.6); METHEMOGLOBIN 0.6 %; OXYHEMOGLOBIN 94.9 %; PCO2 ARTERIAL 32.9 mmHg (35.0-42.0); TOTAL HEMOGLOBIN 8.4 g/dL (12.0-16.0)
[2022-11-25 05:21] LABS: O2 SATURATION ARTERIAL > 99.3 % (95.0-98.0)
[2022-11-25 05:50] LABS: A/G RATIO 0.8 (1.2-2.2); ALANINE AMINOTRANSFERASE,ALT 33 U/L (12-78); ALBUMIN 2.4 g/dL (3.4-5.0); ALKALINE PHOSPHATASE 125 U/L (46-116); ANION GAP 9.6 mmol/L (5.0-14.0); ASPARTATE AMNIOTRANSFERASE,AST 31 U/L (15-37); BILIRUBIN TOTAL 0.8 mg/dL (0.2-1.0); BLOOD UREA NITROGEN,BUN 12 mg/dL (7-18); CARBON DIOXIDE,CO2 24 mmol/L (21-32); CHLORIDE,CL 108 mmol/L (100-108); CREATININE 0.3 mg/dL (0.6-1.0); EST CRCL DRUG DOSING (CG) 195.83 mL/min; ESTIMATED GFR 122 mL/min (>60); GLUCOSE RANDOM 90 mg/dL (74-106); MAGNESIUM 1.8 mg/dL (1.8-2.4); PHOSPHORUS 3.9 mg/dL (2.5-4.9); POTASSIUM,K 4.4 mmol/L (3.6-5.2); PRO B-TYPE NATRIUR PEPT,BNPPRO 382 pg/mL (5-125); PROTEIN TOTAL,TP 5.4 g/dL (6.4-8.2); SODIUM,NA 142 mmol/L (140-148)
[2022-11-25] MEDS: Acetylcysteine 20% 200 MG/ML 4 ML Nebulizer Soln SDV NEB SCH ×3 (07:11→22:02)
[2022-11-25] MEDS: Iopamidol 612 MG/ML 30 ML SDV JTUBE ONE ×2 (08:34→08:36)
[2022-11-25] MEDS: Levothyroxine 112 MCG Tab JTUBE SCH (09:01)
[2022-11-25] MEDS: Amiodarone 200 MG Tab JTUBE SCH (09:10)
[2022-11-25] MEDS: Micafungin 100 MG in Sodium Chloride 0.9% 100 ML IV SCH (12:50)
[2022-11-25] MEDS: Loperamide 1 MG/7.5 ML 7.5 ML UD Cup FTUBE PRN (14:35)
[2022-11-25] MEDS: Pantoprazole 40 MG Vial IVPUSH SCH (17:01)
[2022-11-26] MEDS: Hypromellose 0.3% Ophth Soln 15 ML Bottle EYEBOTH SCH ×12 (00:30→22:30)
[2022-11-26] MEDS: propofoL 100 ML IV SCH ×4 (00:53→21:29)
[2022-11-26] MEDS: HYDROmorphone 0.5 MG/0.5 ML Syringe IVPUSH PRN ×2 (01:09→10:54)
[2022-11-26 04:18] LABS: HEMATOCRIT 28.1 % (34.3-46.0); HEMOGLOBIN 9.2 g/dL (11.2-15.5); MEAN CORPUSCULAR HGB CONC 32.7 g/dL (31.6-35.5); MEAN CORPUSCULAR VOLUME 94.6 fL (81.4-99.0); RED BLOOD CELL COUNT 2.97 M/uL (3.77-5.24); WHITE BLOOD CELL COUNT,WBC 7.1 K/uL (3.2-11.0)
[2022-11-26 04:19] LABS: BASE EXCESS ARTERIAL 0.7 mm/L; BICARBONATE,ARTERIAL 24.1 mmol/L (22.0-26.0); CARBOXYHEMOGLOBIN 2.9 % (0.0-1.6); METHEMOGLOBIN 0.7 %; OXYHEMOGLOBIN 95.4 %; PCO2 ARTERIAL 35.4 mmHg (35.0-42.0); TOTAL HEMOGLOBIN 9.6 g/dL (12.0-16.0)
[2022-11-26 04:54] LABS: A/G RATIO 0.7 (1.2-2.2); ALANINE AMINOTRANSFERASE,ALT 44 U/L (12-78); ALBUMIN 2.3 g/dL (3.4-5.0); ALKALINE PHOSPHATASE 136 U/L (46-116); ANION GAP 9.2 mmol/L (5.0-14.0); ASPARTATE AMNIOTRANSFERASE,AST 32 U/L (15-37); BILIRUBIN TOTAL 0.8 mg/dL (0.2-1.0); BLOOD UREA NITROGEN,BUN 13 mg/dL (7-18); CALCIUM 8.1 mg/dL (8.5-10.1); CARBON DIOXIDE,CO2 25 mmol/L (21-32); CHLORIDE,CL 108 mmol/L (100-108); CREATININE 0.3 mg/dL (0.6-1.0); EST CRCL DRUG DOSING (CG) 195.83 mL/min; ESTIMATED GFR 122 mL/min (>60); GLUCOSE RANDOM 123 mg/dL (74-106); MAGNESIUM 1.7 mg/dL (1.8-2.4); POTASSIUM,K 3.6 mmol/L (3.6-5.2); PRO B-TYPE NATRIUR PEPT,BNPPRO 459 pg/mL (5-125); PROTEIN TOTAL,TP 5.5 g/dL (6.4-8.2); SODIUM,NA 142 mmol/L (140-148)
[2022-11-26] MEDS ORDERED: Sodium Chloride 0.9% 500 ML IV ONE ×2 (05:08→18:06)
[2022-11-26] MEDS: Dextrose 5%-Lactated Ringers 1,000 ML IV SCH ×2 (05:41→18:20)
[2022-11-26] MEDS: Acetylcysteine 20% 200 MG/ML 4 ML Nebulizer Soln SDV NEB SCH ×3 (07:33→21:12)
[2022-11-26] MEDS: Amiodarone 200 MG Tab JTUBE SCH (08:03)
[2022-11-26] MEDS: Levothyroxine 112 MCG Tab JTUBE SCH (08:03)
[2022-11-26] MEDS: Potassium Chloride 10 MEQ in Premix Bag 1 BAG IV SCH ×4 (11:35→15:24)
[2022-11-26] MEDS: Micafungin 100 MG in Sodium Chloride 0.9% 100 ML IV SCH (13:22)
[2022-11-26] MEDS: Loperamide 1 MG/7.5 ML 7.5 ML UD Cup FTUBE PRN (13:55)
[2022-11-26] MEDS: Pantoprazole 40 MG Vial IVPUSH SCH (16:24)
[2022-11-26] MEDS: LORazepam 0.5 MG Tab JTUBE PRN (17:11)
[2022-11-27] MEDS: Hypromellose 0.3% Ophth Soln 15 ML Bottle EYEBOTH SCH ×12 (00:20→23:04)
[2022-11-27] MEDS: propofoL 100 ML IV SCH ×2 (02:06→05:44)
[2022-11-27 04:14] LABS: BASOPHILS ABSOLUTE AUTO 0.03 K/uL (0.00-0.10); BASOPHILS PERCENT AUTO 0.5 % (0.1-1.3); EOSINOPHILS ABSOLUTE AUTO 0.09 K/uL (0.00-0.40); EOSINOPHILS PERCENT AUTO 1.4 % (0.0-5.4); HEMATOCRIT 27.8 % (34.3-46.0); HEMOGLOBIN 9.2 g/dL (11.2-15.5); IMMATURE GRAN ABSOLUTE AUTO 0.06 K/uL (0.00-0.23); IMMATURE GRAN PERCENT AUTO 0.9 % (0.0-0.7); LYMPHOCYTES ABSOLUTE AUTO 0.35 K/uL (0.8-3.3); LYMPHOCYTES PERCENT AUTO 5.4 % (11.4-47.7); MEAN CORPUSCULAR HEMOGLOBIN 30.8 pg (31.6-35.5); MEAN CORPUSCULAR HGB CONC 33.1 g/dL (31.6-35.5); MONOCYTES ABSOLUTE AUTO 0.53 K/uL (0.20-0.90); MONOCYTES PERCENT AUTO 8.2 % (3.3-12.6); NEUTROPHILS ABSOLUTE AUTO 5.37 K/uL (1.0-7.6); NEUTROPHILS PERCENT AUTO 83.6 % (40.0-78.1); PLATELET COUNT,PLT 198 K/uL (130-375); RED BLOOD CELL COUNT 2.99 M/uL (3.77-5.24); WHITE BLOOD CELL COUNT,WBC 6.4 K/uL (3.2-11.0)
[2022-11-27 04:15] LABS: BICARBONATE,ARTERIAL 23.4 mmol/L (22.0-26.0); CARBOXYHEMOGLOBIN 3.3 % (0.0-1.6); METHEMOGLOBIN 0.5 %; OXYHEMOGLOBIN 95.9 %; PCO2 ARTERIAL 30.4 mmHg (35.0-42.0); TOTAL HEMOGLOBIN 9.6 g/dL (12.0-16.0)
[2022-11-27 04:16] LABS: O2 SATURATION ARTERIAL > 99.3 % (95.0-98.0)
[2022-11-27 04:43] LABS: ALANINE AMINOTRANSFERASE,ALT 85 U/L (12-78); ALBUMIN 2.2 g/dL (3.4-5.0); ALKALINE PHOSPHATASE 172 U/L (46-116); ASPARTATE AMNIOTRANSFERASE,AST 75 U/L (15-37); BILIRUBIN TOTAL 0.7 mg/dL (0.2-1.0); BLOOD UREA NITROGEN,BUN 9 mg/dL (7-18); CARBON DIOXIDE,CO2 25 mmol/L (21-32); CHLORIDE,CL 104 mmol/L (100-108); CREATININE 0.3 mg/dL (0.6-1.0); EST CRCL DRUG DOSING (CG) 195.83 mL/min; ESTIMATED GFR 122 mL/min (>60); GLUCOSE RANDOM 136 mg/dL (74-106); MAGNESIUM 1.7 mg/dL (1.8-2.4); PHOSPHORUS 3.5 mg/dL (2.5-4.9); POTASSIUM,K 3.8 mmol/L (3.6-5.2); PRO B-TYPE NATRIUR PEPT,BNPPRO 563 pg/mL (5-125); PROTEIN TOTAL,TP 5.6 g/dL (6.4-8.2); SODIUM,NA 137 mmol/L (140-148)
[2022-11-27 04:52] LABS: A/G RATIO 0.7 (1.2-2.2); ANION GAP 11.8 mmol/L (5.0-14.0)
[2022-11-27] MEDS: Dextrose 5%-Lactated Ringers 1,000 ML IV SCH (06:29)
[2022-11-27] MEDS: HYDROmorphone 0.5 MG/0.5 ML Syringe IVPUSH PRN ×3 (07:15→20:09)
[2022-11-27] MEDS: Acetylcysteine 20% 200 MG/ML 4 ML Nebulizer Soln SDV NEB SCH ×3 (07:30→21:41)
[2022-11-27] MEDS: Levothyroxine 112 MCG Tab JTUBE SCH (08:08)
[2022-11-27] MEDS: Amiodarone 200 MG Tab JTUBE SCH (08:09)
[2022-11-27] MEDS ORDERED: Iopamidol 612 MG/ML 100 ML Bottle IV PRN (12:13)
[2022-11-27] MEDS ORDERED: Sodium Chloride 0.9% 10 ML Syringe FLUSH ONE (12:13)
[2022-11-27] MEDS ORDERED: Sodium Chloride 0.9% 50 ML IV SCH (12:15)
[2022-11-27] MEDS: Heparin Sodium 5,000 UNITS in Sodium Chloride 0.9% 500 ML IV SCH ×4 (12:46)
[2022-11-27] MEDS ORDERED: Sodium Chloride 0.9% 1,000 ML IV SCH (13:15)
[2022-11-27] MEDS: Micafungin 100 MG in Sodium Chloride 0.9% 100 ML IV SCH (14:01)
[2022-11-27] MEDS: Pantoprazole 40 MG Vial IVPUSH SCH (16:24)
[2022-11-27] MEDS: LORazepam 0.5 MG Tab JTUBE PRN (17:19)
[2022-11-27] MEDS ORDERED: LORazepam 2 MG/ML SDV ONE (20:28)
[2022-11-27] MEDS ORDERED: LORazepam 2 MG/ML SDV IVPUSH ONE (20:31)
[2022-11-27] MEDS: Heparin Sodium 5,000 Units/ML Vial SUBCUT SCH (21:40)
[2022-11-28] MEDS: Hypromellose 0.3% Ophth Soln 15 ML Bottle EYEBOTH SCH ×6 (00:02→10:32)
[2022-11-28] MEDS: LORazepam 0.5 MG Tab JTUBE PRN ×2 (00:34→13:23)
[2022-11-28 04:26] LABS: BASE EXCESS ARTERIAL 3.8 mm/L; BICARBONATE,ARTERIAL 26.6 mmol/L (22.0-26.0); CARBOXYHEMOGLOBIN 2.9 % (0.0-1.6); METHEMOGLOBIN 0.7 %; O2 SATURATION ARTERIAL 99.1 % (95.0-98.0); OXYHEMOGLOBIN 95.5 %; PCO2 ARTERIAL 34.1 mmHg (35.0-42.0); TOTAL HEMOGLOBIN 9.5 g/dL (12.0-16.0)
[2022-11-28 04:28] LABS: HEMATOCRIT 27.6 % (34.3-46.0); HEMOGLOBIN 9.2 g/dL (11.2-15.5); MEAN CORPUSCULAR HEMOGLOBIN 31.3 pg (31.6-35.5); MEAN CORPUSCULAR HGB CONC 33.3 g/dL (31.6-35.5); MEAN CORPUSCULAR VOLUME 93.9 fL (81.4-99.0); RED BLOOD CELL COUNT 2.94 M/uL (3.77-5.24); WHITE BLOOD CELL COUNT,WBC 7.5 K/uL (3.2-11.0)
[2022-11-28 04:47] LABS: A/G RATIO 0.7 (1.2-2.2); ALANINE AMINOTRANSFERASE,ALT 93 U/L (12-78); ALBUMIN 2.2 g/dL (3.4-5.0); ALKALINE PHOSPHATASE 282 U/L (46-116); ASPARTATE AMNIOTRANSFERASE,AST 56 U/L (15-37); BILIRUBIN TOTAL 0.7 mg/dL (0.2-1.0); BLOOD UREA NITROGEN,BUN 8 mg/dL (7-18); CALCIUM 7.9 mg/dL (8.5-10.1); CARBON DIOXIDE,CO2 27 mmol/L (21-32); CHLORIDE,CL 105 mmol/L (100-108); CREATININE 0.3 mg/dL (0.6-1.0); EST CRCL DRUG DOSING (CG) 195.83 mL/min; ESTIMATED GFR 122 mL/min (>60); GLUCOSE RANDOM 106 mg/dL (74-106); MAGNESIUM 1.8 mg/dL (1.8-2.4); PHOSPHORUS 3.4 mg/dL (2.5-4.9); POTASSIUM,K 3.7 mmol/L (3.6-5.2); PROTEIN TOTAL,TP 5.4 g/dL (6.4-8.2); SODIUM,NA 138 mmol/L (140-148)
[2022-11-28] MEDS: HYDROmorphone 0.5 MG/0.5 ML Syringe IVPUSH PRN ×2 (05:39→12:38)
[2022-11-28 05:53] LABS: ANION GAP 9.7 mmol/L (5.0-14.0)
[2022-11-28] MEDS: Acetylcysteine 20% 200 MG/ML 4 ML Nebulizer Soln SDV NEB SCH (07:25)
[2022-11-28] MEDS: Levothyroxine 112 MCG Tab JTUBE SCH (08:08)
[2022-11-28] MEDS: Amiodarone 200 MG Tab JTUBE SCH (08:08)
[2022-11-28] MEDS: Heparin Sodium 5,000 Units/ML Vial SUBCUT SCH ×2 (08:09→19:51)
[2022-11-28] MEDS: Micafungin 100 MG in Sodium Chloride 0.9% 100 ML IV SCH (12:24)
[2022-11-28] MEDS: Pantoprazole 40 MG Vial IVPUSH SCH (16:30)
[2022-11-29] MEDS: HYDROmorphone 0.5 MG/0.5 ML Syringe IVPUSH PRN ×3 (03:11→20:20)
[2022-11-29 04:48] LABS: HEMATOCRIT 28.5 % (34.3-46.0); HEMOGLOBIN 9.4 g/dL (11.2-15.5); MEAN CORPUSCULAR HEMOGLOBIN 30.9 pg (31.6-35.5); MEAN CORPUSCULAR VOLUME 93.8 fL (81.4-99.0); RED BLOOD CELL COUNT 3.04 M/uL (3.77-5.24); WHITE BLOOD CELL COUNT,WBC 7.3 K/uL (3.2-11.0)
[2022-11-29 05:08] LABS: A/G RATIO 0.6 (1.2-2.2); ALANINE AMINOTRANSFERASE,ALT 94 U/L (12-78); ALBUMIN 2.2 g/dL (3.4-5.0); ALKALINE PHOSPHATASE 180 U/L (46-116); ANION GAP 7.1 mmol/L (5.0-14.0); ASPARTATE AMNIOTRANSFERASE,AST 53 U/L (15-37); BILIRUBIN TOTAL 0.6 mg/dL (0.2-1.0); BLOOD UREA NITROGEN,BUN 9 mg/dL (7-18); CALCIUM 8.3 mg/dL (8.5-10.1); CARBON DIOXIDE,CO2 27 mmol/L (21-32); CHLORIDE,CL 106 mmol/L (100-108); CREATININE 0.3 mg/dL (0.6-1.0); EST CRCL DRUG DOSING (CG) 195.83 mL/min; ESTIMATED GFR 122 mL/min (>60); GLUCOSE RANDOM 137 mg/dL (74-106); MAGNESIUM 1.9 mg/dL (1.8-2.4); POTASSIUM,K 3.6 mmol/L (3.6-5.2); PROTEIN TOTAL,TP 5.7 g/dL (6.4-8.2); SODIUM,NA 140 mmol/L (140-148)
[2022-11-29] MEDS: Levothyroxine 112 MCG Tab JTUBE SCH (07:35)
[2022-11-29] MEDS: Heparin Sodium 5,000 Units/ML Vial SUBCUT SCH ×2 (08:27→19:51)
[2022-11-29] MEDS: Amiodarone 200 MG Tab JTUBE SCH (10:40)
[2022-11-29] MEDS: Micafungin 100 MG in Sodium Chloride 0.9% 100 ML IV SCH (12:16)
[2022-11-29] MEDS: Pantoprazole 40 MG Vial IVPUSH SCH (17:52)
[2022-11-29] MEDS: Ondansetron 4 MG/2 ML SDV IVPUSH PRN (19:45)
[2022-11-29] MEDS ORDERED: Metoprolol Tartrate 25 MG Tab ONE (21:06)
[2022-11-29] MEDS: Metoprolol Tartrate 25 MG Tab PO SCH (21:10)
[2022-11-30 04:20] LABS: HEMATOCRIT 30.1 % (34.3-46.0); HEMOGLOBIN 9.8 g/dL (11.2-15.5); MEAN CORPUSCULAR HEMOGLOBIN 30.5 pg (31.6-35.5); MEAN CORPUSCULAR HGB CONC 32.6 g/dL (31.6-35.5); MEAN CORPUSCULAR VOLUME 93.8 fL (81.4-99.0); RED BLOOD CELL COUNT 3.21 M/uL (3.77-5.24); WHITE BLOOD CELL COUNT,WBC 9.4 K/uL (3.2-11.0)
[2022-11-30 04:43] LABS: A/G RATIO 0.6 (1.2-2.2); ALANINE AMINOTRANSFERASE,ALT 154 U/L (12-78); ALBUMIN 2.2 g/dL (3.4-5.0); ALKALINE PHOSPHATASE 245 U/L (46-116); ANION GAP 9.6 mmol/L (5.0-14.0); ASPARTATE AMNIOTRANSFERASE,AST 109 U/L (15-37); BILIRUBIN TOTAL 0.6 mg/dL (0.2-1.0); BLOOD UREA NITROGEN,BUN 7 mg/dL (7-18); CALCIUM 8.3 mg/dL (8.5-10.1); CARBON DIOXIDE,CO2 28 mmol/L (21-32); CHLORIDE,CL 103 mmol/L (100-108); CREATININE 0.3 mg/dL (0.6-1.0); EST CRCL DRUG DOSING (CG) 195.83 mL/min; ESTIMATED GFR 122 mL/min (>60); GLUCOSE RANDOM 133 mg/dL (74-106); MAGNESIUM 1.9 mg/dL (1.8-2.4); PHOSPHORUS 3.6 mg/dL (2.5-4.9); POTASSIUM,K 3.8 mmol/L (3.6-5.2); PROTEIN TOTAL,TP 6.1 g/dL (6.4-8.2); SODIUM,NA 141 mmol/L (140-148)
[2022-11-30] MEDS: Metoprolol Tartrate 25 MG Tab PO SCH ×2 (05:14→23:07)
[2022-11-30] MEDS ORDERED: Metoprolol Tartrate 25 MG Tab ONE (05:23)
[2022-11-30] MEDS: Amiodarone 200 MG Tab JTUBE SCH (08:22)
[2022-11-30] MEDS: Levothyroxine 112 MCG Tab JTUBE SCH (08:22)
[2022-11-30] MEDS: Heparin Sodium 5,000 Units/ML Vial SUBCUT SCH ×2 (08:22→19:46)
[2022-11-30 10:22] LABS: BODY FLUID TYPE JP DRAINAGE
[2022-11-30 10:23] LABS: TRIGLYCERIDES,BODY FLUID 211 mg/dL
[2022-11-30 10:30] LABS: BODY FLUID TYPE JP DRAINAGE; TRIGLYCERIDES,BODY FLUID < 15 mg/dL
[2022-11-30 10:59] LABS: BODY FLUID TYPE JP DRAINAGE; TRIGLYCERIDES,BODY FLUID < 15 mg/dL
[2022-11-30] MEDS ORDERED: Acetaminophen Soln 650 MG/20.3 ML UD Cup JTUBE PRN (11:37)
[2022-11-30] MEDS: Acetaminophen/HYDROcodone 108-2.5 MG/5 ML Soln 15 ML UD Cup JTUBE PRN ×2 (13:17→19:56)
[2022-11-30] MEDS ORDERED: Metoprolol Tartrate 25 MG Tab PO SCH (14:00)
[2022-11-30] MEDS: Hypromellose 0.3% Ophth Soln 15 ML Bottle EYEBOTH SCH (14:35)
[2022-11-30] MEDS: Ondansetron 4 MG/2 ML SDV IVPUSH PRN (17:58)
[2022-11-30] MEDS: Metoclopramide 10 MG/2 ML SDV IVPUSH PRN (19:47)
[2022-11-30] MEDS: Pantoprazole 40 MG Delayed-Release Granules 1 Packet JTUBE SCH (21:27)
[2022-12-01] MEDS: Ondansetron 4 MG/2 ML SDV IVPUSH PRN (01:19)
[2022-12-01 04:39] LABS: HEMATOCRIT 30.4 % (34.3-46.0); HEMOGLOBIN 9.9 g/dL (11.2-15.5); MEAN CORPUSCULAR HEMOGLOBIN 30.7 pg (31.6-35.5); MEAN CORPUSCULAR HGB CONC 32.6 g/dL (31.6-35.5); MEAN CORPUSCULAR VOLUME 94.4 fL (81.4-99.0); RED BLOOD CELL COUNT 3.22 M/uL (3.77-5.24); WHITE BLOOD CELL COUNT,WBC 7.4 K/uL (3.2-11.0)
[2022-12-01 04:59] LABS: A/G RATIO 0.6 (1.2-2.2); ALANINE AMINOTRANSFERASE,ALT 169 U/L (12-78); ALBUMIN 2.3 g/dL (3.4-5.0); ALKALINE PHOSPHATASE 237 U/L (46-116); ANION GAP 6.3 mmol/L (5.0-14.0); ASPARTATE AMNIOTRANSFERASE,AST 75 U/L (15-37); BILIRUBIN TOTAL 0.5 mg/dL (0.2-1.0); BLOOD UREA NITROGEN,BUN 9 mg/dL (7-18); CALCIUM 8.4 mg/dL (8.5-10.1); CARBON DIOXIDE,CO2 31 mmol/L (21-32); CHLORIDE,CL 104 mmol/L (100-108); CREATININE 0.4 mg/dL (0.6-1.0); EST CRCL DRUG DOSING (CG) 146.87 mL/min; ESTIMATED GFR 114 mL/min (>60); GLUCOSE RANDOM 123 mg/dL (74-106); MAGNESIUM 1.9 mg/dL (1.8-2.4); POTASSIUM,K 3.8 mmol/L (3.6-5.2); PROTEIN TOTAL,TP 6.1 g/dL (6.4-8.2); SODIUM,NA 141 mmol/L (140-148)
[2022-12-01] MEDS: Levothyroxine 112 MCG Tab JTUBE SCH (07:28)
[2022-12-01] MEDS: Acetaminophen/HYDROcodone 108-2.5 MG/5 ML Soln 15 ML UD Cup JTUBE PRN ×3 (07:28→22:33)
[2022-12-01] MEDS: Heparin Sodium 5,000 Units/ML Vial SUBCUT SCH ×2 (07:30→19:48)
[2022-12-01] MEDS: Metoprolol Tartrate 25 MG Tab PO SCH ×2 (08:24→20:06)
[2022-12-01] MEDS: Amiodarone 200 MG Tab JTUBE SCH (08:24)
[2022-12-01] MEDS: Pantoprazole 40 MG Delayed-Release Granules 1 Packet JTUBE SCH (20:07)
[2022-12-02] MEDS: Acetaminophen/HYDROcodone 108-2.5 MG/5 ML Soln 15 ML UD Cup JTUBE PRN ×5 (03:09→20:12)
[2022-12-02 05:51] LABS: MEAN CORPUSCULAR HGB CONC 32.3 g/dL (31.6-35.5); RED BLOOD CELL COUNT 3.23 M/uL (3.77-5.24); WHITE BLOOD CELL COUNT,WBC 5.1 K/uL (3.2-11.0)
[2022-12-02 06:12] LABS: A/G RATIO 0.6 (1.2-2.2); ALANINE AMINOTRANSFERASE,ALT 136 U/L (12-78); ALBUMIN 2.4 g/dL (3.4-5.0); ALKALINE PHOSPHATASE 222 U/L (46-116); ASPARTATE AMNIOTRANSFERASE,AST 46 U/L (15-37); BILIRUBIN TOTAL 0.4 mg/dL (0.2-1.0); BLOOD UREA NITROGEN,BUN 11 mg/dL (7-18); CALCIUM 8.6 mg/dL (8.5-10.1); CARBON DIOXIDE,CO2 32 mmol/L (21-32); CHLORIDE,CL 104 mmol/L (100-108); CREATININE 0.4 mg/dL (0.6-1.0); EST CRCL DRUG DOSING (CG) 146.87 mL/min; ESTIMATED GFR 114 mL/min (>60); GLUCOSE RANDOM 151 mg/dL (74-106); PHOSPHORUS 4.4 mg/dL (2.5-4.9); POTASSIUM,K 3.5 mmol/L (3.6-5.2); PROTEIN TOTAL,TP 6.3 g/dL (6.4-8.2); SODIUM,NA 143 mmol/L (140-148)
[2022-12-02 06:13] LABS: ANION GAP 10.5 mmol/L (5.0-14.0)
[2022-12-02] MEDS: Levothyroxine 112 MCG Tab JTUBE SCH (07:28)
[2022-12-02] MEDS: Heparin Sodium 5,000 Units/ML Vial SUBCUT SCH ×2 (07:32→20:14)
[2022-12-02] MEDS: Metoprolol Tartrate 25 MG Tab PO SCH ×2 (08:41→20:13)
[2022-12-02] MEDS: Amiodarone 200 MG Tab JTUBE SCH (08:42)
[2022-12-02] MEDS ORDERED: Potassium Chloride 10% 20 MEQ/15 ML Soln 15 ML UD Cup JTUBE ONE (09:00)
[2022-12-02] MEDS: Pantoprazole 40 MG Delayed-Release Granules 1 Packet JTUBE SCH (20:14)
[2022-12-03] MEDS: Acetaminophen/HYDROcodone 108-2.5 MG/5 ML Soln 15 ML UD Cup JTUBE PRN ×6 (00:45→21:01)
[2022-12-03 04:46] LABS: HEMATOCRIT 31.4 % (34.3-46.0); HEMOGLOBIN 10.2 g/dL (11.2-15.5); MEAN CORPUSCULAR HEMOGLOBIN 30.7 pg (31.6-35.5); MEAN CORPUSCULAR HGB CONC 32.5 g/dL (31.6-35.5); MEAN CORPUSCULAR VOLUME 94.6 fL (81.4-99.0); RED BLOOD CELL COUNT 3.32 M/uL (3.77-5.24); WHITE BLOOD CELL COUNT,WBC 7.5 K/uL (3.2-11.0)
[2022-12-03 05:09] LABS: A/G RATIO 0.7 (1.2-2.2); ALANINE AMINOTRANSFERASE,ALT 116 U/L (12-78); ALBUMIN 2.5 g/dL (3.4-5.0); ALKALINE PHOSPHATASE 222 U/L (46-116); ANION GAP 6.1 mmol/L (5.0-14.0); ASPARTATE AMNIOTRANSFERASE,AST 43 U/L (15-37); BILIRUBIN TOTAL 0.4 mg/dL (0.2-1.0); BLOOD UREA NITROGEN,BUN 10 mg/dL (7-18); CALCIUM 8.6 mg/dL (8.5-10.1); CARBON DIOXIDE,CO2 30 mmol/L (21-32); CHLORIDE,CL 104 mmol/L (100-108); CREATININE 0.4 mg/dL (0.6-1.0); EST CRCL DRUG DOSING (CG) 146.87 mL/min; ESTIMATED GFR 114 mL/min (>60); GLUCOSE RANDOM 143 mg/dL (74-106); PHOSPHORUS 3.9 mg/dL (2.5-4.9); POTASSIUM,K 3.6 mmol/L (3.6-5.2); PROTEIN TOTAL,TP 6.3 g/dL (6.4-8.2); SODIUM,NA 140 mmol/L (140-148)
[2022-12-03] MEDS: Levothyroxine 112 MCG Tab JTUBE SCH (08:34)
[2022-12-03] MEDS: Heparin Sodium 5,000 Units/ML Vial SUBCUT SCH ×2 (08:35→20:54)
[2022-12-03] MEDS: Metoprolol Tartrate 25 MG Tab PO SCH ×2 (08:35→21:02)
[2022-12-03] MEDS: Amiodarone 200 MG Tab JTUBE SCH (08:35)
[2022-12-03] MEDS: Gabapentin 250 MG/5 ML Solution ML 470 ML Bottle PO SCH ×2 (10:26→13:22)
[2022-12-03] MEDS: Pantoprazole 40 MG Delayed-Release Granules 1 Packet JTUBE SCH (21:01)
[2022-12-03] MEDS: Gabapentin 250 MG/5 ML Solution ML 470 ML Bottle JTUBE SCH (21:01)
[2022-12-03] MEDS: diphenhydrAMINE 25 MG/10 ML Cup JTUBE PRN (21:02)
[2022-12-04] MEDS: Acetaminophen/HYDROcodone 108-2.5 MG/5 ML Soln 15 ML UD Cup JTUBE PRN ×4 (02:16→18:42)
[2022-12-04 04:19] LABS: HEMATOCRIT 31.7 % (34.3-46.0); HEMOGLOBIN 10.3 g/dL (11.2-15.5); MEAN CORPUSCULAR HEMOGLOBIN 30.9 pg (31.6-35.5); MEAN CORPUSCULAR HGB CONC 32.5 g/dL (31.6-35.5); MEAN CORPUSCULAR VOLUME 95.2 fL (81.4-99.0); RED BLOOD CELL COUNT 3.33 M/uL (3.77-5.24); WHITE BLOOD CELL COUNT,WBC 6.7 K/uL (3.2-11.0)
[2022-12-04 04:45] LABS: A/G RATIO 0.6 (1.2-2.2); ALANINE AMINOTRANSFERASE,ALT 86 U/L (12-78); ALBUMIN 2.4 g/dL (3.4-5.0); ALKALINE PHOSPHATASE 200 U/L (46-116); ASPARTATE AMNIOTRANSFERASE,AST 25 U/L (15-37); BILIRUBIN TOTAL 0.4 mg/dL (0.2-1.0); BLOOD UREA NITROGEN,BUN 13 mg/dL (7-18); CALCIUM 8.6 mg/dL (8.5-10.1); CARBON DIOXIDE,CO2 30 mmol/L (21-32); CHLORIDE,CL 102 mmol/L (100-108); CREATININE 0.4 mg/dL (0.6-1.0); EST CRCL DRUG DOSING (CG) 146.87 mL/min; ESTIMATED GFR 114 mL/min (>60); GLUCOSE RANDOM 116 mg/dL (74-106); PHOSPHORUS 4.3 mg/dL (2.5-4.9); POTASSIUM,K 3.7 mmol/L (3.6-5.2); PROTEIN TOTAL,TP 6.4 g/dL (6.4-8.2); SODIUM,NA 139 mmol/L (140-148)
[2022-12-04 05:13] LABS: ANION GAP 10.7 mmol/L (5.0-14.0)
[2022-12-04] MEDS: Levothyroxine 112 MCG Tab JTUBE SCH (08:16)
[2022-12-04] MEDS: Heparin Sodium 5,000 Units/ML Vial SUBCUT SCH ×2 (08:16→20:52)
[2022-12-04] MEDS: Amiodarone 200 MG Tab JTUBE SCH (08:17)
[2022-12-04] MEDS: Metoprolol Tartrate 25 MG Tab PO SCH ×2 (08:17→20:53)
[2022-12-04] MEDS: Gabapentin 250 MG/5 ML Solution ML 470 ML Bottle JTUBE SCH ×3 (08:23→20:59)
[2022-12-04] MEDS: Pantoprazole 40 MG Delayed-Release Granules 1 Packet JTUBE SCH (20:54)
[2022-12-04] MEDS: diphenhydrAMINE 25 MG/10 ML Cup JTUBE PRN (20:59)
[2022-12-04] MEDS: HYDROmorphone 0.5 MG/0.5 ML Syringe IVPUSH PRN (20:59)
[2022-12-05] MEDS: Acetaminophen/HYDROcodone 108-2.5 MG/5 ML Soln 15 ML UD Cup JTUBE PRN ×3 (03:00→19:25)
[2022-12-05] MEDS: Heparin Sodium 5,000 Units/ML Vial SUBCUT SCH ×2 (08:01→21:39)
[2022-12-05] MEDS: Gabapentin 250 MG/5 ML Solution ML 470 ML Bottle JTUBE SCH ×3 (08:01→20:40)
[2022-12-05] MEDS: Metoprolol Tartrate 25 MG Tab PO SCH ×2 (08:02→20:42)
[2022-12-05] MEDS: Levothyroxine 112 MCG Tab JTUBE SCH (08:08)
[2022-12-05] MEDS: Amiodarone 200 MG Tab JTUBE SCH (08:08)
[2022-12-05] MEDS: HYDROmorphone 0.5 MG/0.5 ML Syringe IVPUSH PRN ×2 (10:57→23:00)
[2022-12-05] MEDS: Ondansetron 4 MG/2 ML SDV IVPUSH PRN (18:34)
[2022-12-05] MEDS: diphenhydrAMINE 25 MG/10 ML Cup JTUBE PRN (20:40)
[2022-12-05] MEDS: Pantoprazole 40 MG Delayed-Release Granules 1 Packet JTUBE SCH (20:42)
[2022-12-05] MEDS ORDERED: Phenazopyridine 95 MG Tab PO PRN (23:27)
[2022-12-06 02:37] LABS: APPEARANCE,URINE SLIGHTLY CLOUDY (CLEAR); BILIRUBIN,URINE NEGATIVE (NEGATIVE); COLOR,URINE YELLOW (YELLOW); GLUCOSE,URINE NEGATIVE (NEGATIVE); KETONES,URINE NEGATIVE (NEGATIVE); LEUKOCYTE ESTERASE,URINE TRACE (NEGATIVE); NITRITE,URINE POSITIVE (NEGATIVE); OCCULT BLOOD,URINE MODERATE (NEGATIVE); PH,URINE 5.5 (5.0-8.0); PROTEIN,URINE NEGATIVE (NEGATIVE); UROBILINOGEN,URINE 0.2 EU/dL (0.2-1.0)
[2022-12-06] MEDS: Acetaminophen/HYDROcodone 108-2.5 MG/5 ML Soln 15 ML UD Cup JTUBE PRN ×3 (02:40→13:19)
[2022-12-06 02:54] LABS: AMORPHOUS SEDIMENT,URINE NOT SEEN; BACTERIA,URINE MODERATE; EPITHELIAL CELLS,URINE FEW; MUCUS,URINE MODERATE; WBC,URINE 40-50 (0-5)
[2022-12-06] MEDS: cefTRIAXone 1 GM in Sodium Chloride 0.9% 50 ML IV SCH (04:15)
[2022-12-06 04:44] LABS: HEMOGLOBIN 10.3 g/dL (11.2-15.5); MEAN CORPUSCULAR HEMOGLOBIN 30.9 pg (31.6-35.5); MEAN CORPUSCULAR HGB CONC 33.2 g/dL (31.6-35.5); MEAN CORPUSCULAR VOLUME 93.1 fL (81.4-99.0); RED BLOOD CELL COUNT 3.33 M/uL (3.77-5.24); WHITE BLOOD CELL COUNT,WBC 7.8 K/uL (3.2-11.0)
[2022-12-06 05:05] LABS: ALANINE AMINOTRANSFERASE,ALT 46 U/L (12-78); ALBUMIN 2.4 g/dL (3.4-5.0); ALKALINE PHOSPHATASE 185 U/L (46-116); ASPARTATE AMNIOTRANSFERASE,AST 16 U/L (15-37); BILIRUBIN TOTAL 0.5 mg/dL (0.2-1.0); BLOOD UREA NITROGEN,BUN 17 mg/dL (7-18); CALCIUM 8.1 mg/dL (8.5-10.1); CARBON DIOXIDE,CO2 28 mmol/L (21-32); CHLORIDE,CL 98 mmol/L (100-108); CREATININE 0.4 mg/dL (0.6-1.0); EST CRCL DRUG DOSING (CG) 146.87 mL/min; ESTIMATED GFR 114 mL/min (>60); GLUCOSE RANDOM 122 mg/dL (74-106); MAGNESIUM 1.9 mg/dL (1.8-2.4); PHOSPHORUS 3.9 mg/dL (2.5-4.9); POTASSIUM,K 3.5 mmol/L (3.6-5.2); PROTEIN TOTAL,TP 6.1 g/dL (6.4-8.2); SODIUM,NA 137 mmol/L (140-148)
[2022-12-06 05:07] LABS: A/G RATIO 0.7 (1.2-2.2); ANION GAP 14.5 mmol/L (5.0-14.0)
[2022-12-06] MEDS: Ondansetron 4 MG/2 ML SDV IVPUSH PRN (07:50)
[2022-12-06] MEDS ORDERED: Sodium Chloride 0.9% 50 ML IV ONE (08:14)
[2022-12-06] MEDS ORDERED: Iopamidol 612 MG/ML 100 ML Bottle IV PRN (08:14)
[2022-12-06] MEDS ORDERED: Sodium Chloride 0.9% 10 ML Syringe FLUSH PRN (08:14)
[2022-12-06] MEDS: Metoclopramide 10 MG/2 ML SDV IVPUSH PRN (08:42)
[2022-12-06] MEDS: diphenhydrAMINE 25 MG/10 ML Cup JTUBE PRN (08:48)
[2022-12-06] MEDS ORDERED: Potassium Chloride 20 MEQ in Premix Bag 1 BAG IV ONE (09:00)
[2022-12-06] MEDS: Levothyroxine 112 MCG Tab JTUBE SCH (09:01)
[2022-12-06] MEDS: Heparin Sodium 5,000 Units/ML Vial SUBCUT SCH ×2 (09:02→20:23)
[2022-12-06] MEDS: Amiodarone 200 MG Tab JTUBE SCH (09:02)
[2022-12-06] MEDS: Metoprolol Tartrate 25 MG Tab PO SCH ×3 (09:08→20:56)
[2022-12-06] MEDS: Gabapentin 250 MG/5 ML Solution ML 470 ML Bottle JTUBE SCH ×4 (09:09→20:56)
[2022-12-06 09:40] LABS: AMYLASE,BODY FLUID 7919 U/L
[2022-12-06 09:52] LABS: BODY FLUID TYPE JP DRAINAGE; TRIGLYCERIDES,BODY FLUID < 15 mg/dL
[2022-12-06] MEDS: Tamsulosin 0.4 MG Cap.ER PO SCH ×2 (11:33→16:39)
[2022-12-06] MEDS: Pantoprazole 40 MG Delayed-Release Granules 1 Packet JTUBE SCH (20:32)
[2022-12-06] MEDS ORDERED: Pantoprazole 40 MG Vial IVPUSH ONE (21:00)
[2022-12-06] MEDS: diphenhydrAMINE 50 MG/ML SDV IVPUSH PRN (21:32)
[2022-12-06] MEDS: HYDROmorphone 0.5 MG/0.5 ML Syringe IVPUSH PRN (21:32)
[2022-12-07] MEDS: HYDROmorphone 0.5 MG/0.5 ML Syringe IVPUSH PRN ×4 (02:36→20:58)
[2022-12-07] MEDS: cefTRIAXone 1 GM in Sodium Chloride 0.9% 50 ML IV SCH (03:01)
[2022-12-07 03:33] LABS: HEMATOCRIT 31.9 % (34.3-46.0); HEMOGLOBIN 10.3 g/dL (11.2-15.5); MEAN CORPUSCULAR HEMOGLOBIN 30.3 pg (31.6-35.5); MEAN CORPUSCULAR HGB CONC 32.3 g/dL (31.6-35.5); MEAN CORPUSCULAR VOLUME 93.8 fL (81.4-99.0); RED BLOOD CELL COUNT 3.4 M/uL (3.77-5.24); WHITE BLOOD CELL COUNT,WBC 6.2 K/uL (3.2-11.0)
[2022-12-07 03:48] LABS: A/G RATIO 0.7 (1.2-2.2); ALANINE AMINOTRANSFERASE,ALT 39 U/L (12-78); ALBUMIN 2.5 g/dL (3.4-5.0); ALKALINE PHOSPHATASE 178 U/L (46-116); ASPARTATE AMNIOTRANSFERASE,AST 18 U/L (15-37); BILIRUBIN TOTAL 0.5 mg/dL (0.2-1.0); BLOOD UREA NITROGEN,BUN 10 mg/dL (7-18); CALCIUM 8.5 mg/dL (8.5-10.1); CARBON DIOXIDE,CO2 28 mmol/L (21-32); CHLORIDE,CL 100 mmol/L (100-108); CREATININE 0.4 mg/dL (0.6-1.0); EST CRCL DRUG DOSING (CG) 146.87 mL/min; ESTIMATED GFR 114 mL/min (>60); GLUCOSE RANDOM 118 mg/dL (74-106); MAGNESIUM 1.8 mg/dL (1.8-2.4); PHOSPHORUS 3.8 mg/dL (2.5-4.9); POTASSIUM,K 3.6 mmol/L (3.6-5.2); PROTEIN TOTAL,TP 6.3 g/dL (6.4-8.2); SODIUM,NA 139 mmol/L (140-148)
[2022-12-07 04:21] LABS: ANION GAP 14.6 mmol/L (5.0-14.0)
[2022-12-07] MEDS: Heparin Sodium 5,000 Units/ML Vial SUBCUT SCH ×2 (08:49→20:50)
[2022-12-07] MEDS: Amiodarone 200 MG Tab JTUBE SCH (08:50)
[2022-12-07] MEDS: Levothyroxine 112 MCG Tab JTUBE SCH (08:50)
[2022-12-07] MEDS: Metoprolol Tartrate 25 MG Tab PO SCH ×2 (08:52→20:56)
[2022-12-07] MEDS: Gabapentin 250 MG/5 ML Solution ML 470 ML Bottle JTUBE SCH ×3 (08:59→21:07)
[2022-12-07] MEDS: Tamsulosin 0.4 MG Cap.ER PO SCH (09:33)
[2022-12-07] MEDS: Acetaminophen/HYDROcodone 108-2.5 MG/5 ML Soln 15 ML UD Cup JTUBE PRN (17:03)
[2022-12-07] MEDS: diphenhydrAMINE 25 MG/10 ML Cup JTUBE PRN (20:51)
[2022-12-07] MEDS: Pantoprazole 40 MG Delayed-Release Granules 1 Packet JTUBE SCH (20:51)
[2022-12-08] MEDS: cefTRIAXone 1 GM in Sodium Chloride 0.9% 50 ML IV SCH (03:10)
[2022-12-08] MEDS: HYDROmorphone 0.5 MG/0.5 ML Syringe IVPUSH PRN ×4 (03:10→20:19)
[2022-12-08 04:51] LABS: HEMATOCRIT 31.2 % (34.3-46.0); MEAN CORPUSCULAR HEMOGLOBIN 30.6 pg (31.6-35.5); MEAN CORPUSCULAR HGB CONC 32.1 g/dL (31.6-35.5); MEAN CORPUSCULAR VOLUME 95.4 fL (81.4-99.0); RED BLOOD CELL COUNT 3.27 M/uL (3.77-5.24); WHITE BLOOD CELL COUNT,WBC 5.8 K/uL (3.2-11.0)
[2022-12-08 05:14] LABS: A/G RATIO 0.7 (1.2-2.2); ALANINE AMINOTRANSFERASE,ALT 31 U/L (12-78); ALBUMIN 2.3 g/dL (3.4-5.0); ALKALINE PHOSPHATASE 157 U/L (46-116); ASPARTATE AMNIOTRANSFERASE,AST 16 U/L (15-37); BILIRUBIN TOTAL 0.3 mg/dL (0.2-1.0); BLOOD UREA NITROGEN,BUN 10 mg/dL (7-18); CALCIUM 8.2 mg/dL (8.5-10.1); CARBON DIOXIDE,CO2 31 mmol/L (21-32); CHLORIDE,CL 101 mmol/L (100-108); CREATININE 0.4 mg/dL (0.6-1.0); EST CRCL DRUG DOSING (CG) 146.87 mL/min; ESTIMATED GFR 114 mL/min (>60); GLUCOSE RANDOM 118 mg/dL (74-106); MAGNESIUM 1.8 mg/dL (1.8-2.4); PHOSPHORUS 3.9 mg/dL (2.5-4.9); POTASSIUM,K 3.5 mmol/L (3.6-5.2); PROTEIN TOTAL,TP 5.8 g/dL (6.4-8.2); SODIUM,NA 139 mmol/L (140-148)
[2022-12-08 05:19] LABS: ANION GAP 10.5 mmol/L (5.0-14.0)
[2022-12-08] MEDS: Levothyroxine 112 MCG Tab JTUBE SCH (08:21)
[2022-12-08] MEDS: Heparin Sodium 5,000 Units/ML Vial SUBCUT SCH ×2 (08:21→20:02)
[2022-12-08] MEDS: Metoprolol Tartrate 25 MG Tab PO SCH ×2 (08:23→20:02)
[2022-12-08] MEDS: Amiodarone 200 MG Tab JTUBE SCH (08:25)
[2022-12-08] MEDS ORDERED: Potassium Chloride 20 MEQ in Premix Bag 1 BAG IV ONE (08:30)
[2022-12-08] MEDS: Gabapentin 250 MG/5 ML Solution ML 470 ML Bottle JTUBE SCH ×3 (08:31→20:02)
[2022-12-08] MEDS: diphenhydrAMINE 50 MG/ML SDV IVPUSH PRN (10:34)
[2022-12-08] MEDS: Loperamide 1 MG/7.5 ML 7.5 ML UD Cup FTUBE PRN (14:18)
[2022-12-08] MEDS: Famotidine 20 MG Tab PO SCH (20:03)
[2022-12-09] MEDS: HYDROmorphone 0.5 MG/0.5 ML Syringe IVPUSH PRN ×3 (00:55→17:45)
[2022-12-09] MEDS: cefTRIAXone 1 GM in Sodium Chloride 0.9% 50 ML IV SCH (03:46)
[2022-12-09 04:39] LABS: HEMATOCRIT 33.3 % (34.3-46.0); HEMOGLOBIN 10.9 g/dL (11.2-15.5); MEAN CORPUSCULAR HEMOGLOBIN 30.4 pg (31.6-35.5); MEAN CORPUSCULAR HGB CONC 32.7 g/dL (31.6-35.5); RED BLOOD CELL COUNT 3.58 M/uL (3.77-5.24); WHITE BLOOD CELL COUNT,WBC 7.3 K/uL (3.2-11.0)
[2022-12-09 05:02] LABS: ALANINE AMINOTRANSFERASE,ALT 28 U/L (12-78); ALBUMIN 2.4 g/dL (3.4-5.0); ALKALINE PHOSPHATASE 162 U/L (46-116); ANION GAP 9.6 mmol/L (5.0-14.0); ASPARTATE AMNIOTRANSFERASE,AST 15 U/L (15-37); BILIRUBIN TOTAL 0.3 mg/dL (0.2-1.0); BLOOD UREA NITROGEN,BUN 9 mg/dL (7-18); CALCIUM 8.4 mg/dL (8.5-10.1); CARBON DIOXIDE,CO2 28 mmol/L (21-32); CHLORIDE,CL 103 mmol/L (100-108); CREATININE 0.4 mg/dL (0.6-1.0); EST CRCL DRUG DOSING (CG) 146.87 mL/min; ESTIMATED GFR 114 mL/min (>60); GLUCOSE RANDOM 123 mg/dL (74-106); MAGNESIUM 1.8 mg/dL (1.8-2.4); PHOSPHORUS 4.1 mg/dL (2.5-4.9); POTASSIUM,K 3.6 mmol/L (3.6-5.2); PROTEIN TOTAL,TP 6.1 g/dL (6.4-8.2); SODIUM,NA 141 mmol/L (140-148)
[2022-12-09 05:35] LABS: A/G RATIO 0.7 (1.2-2.2)
[2022-12-09] MEDS: HYDROmorphone 2 MG Tab JTUBE PRN ×3 (08:46→20:04)
[2022-12-09] MEDS: Heparin Sodium 5,000 Units/ML Vial SUBCUT SCH ×2 (08:46→20:05)
[2022-12-09] MEDS: Amiodarone 200 MG Tab JTUBE SCH (08:46)
[2022-12-09] MEDS: Metoprolol Tartrate 25 MG Tab PO SCH ×2 (08:46→20:06)
[2022-12-09] MEDS: Gabapentin 250 MG/5 ML Solution ML 470 ML Bottle JTUBE SCH ×3 (08:46→20:05)
[2022-12-09] MEDS: Levothyroxine 112 MCG Tab JTUBE SCH (13:16)
[2022-12-09] MEDS: Famotidine 20 MG Tab PO SCH (20:06)
[2022-12-10] MEDS: HYDROmorphone 2 MG Tab JTUBE PRN ×5 (00:01→19:56)
[2022-12-10 01:54] LABS: BODY FLUID TYPE JP DRAINAGE
[2022-12-10 01:55] LABS: AMYLASE,BODY FLUID 1315 U/L; AMYLASE,BODY FLUID 5476 U/L; BODY FLUID TYPE JP DRAINAGE; TRIGLYCERIDES,BODY FLUID 26 mg/dL
[2022-12-10 03:43] LABS: TRIGLYCERIDES,BODY FLUID 46 mg/dL
[2022-12-10 04:11] LABS: HEMATOCRIT 32.9 % (34.3-46.0); HEMOGLOBIN 10.9 g/dL (11.2-15.5); MEAN CORPUSCULAR HEMOGLOBIN 31.1 pg (31.6-35.5); MEAN CORPUSCULAR HGB CONC 33.1 g/dL (31.6-35.5); RED BLOOD CELL COUNT 3.5 M/uL (3.77-5.24); WHITE BLOOD CELL COUNT,WBC 8.2 K/uL (3.2-11.0)
[2022-12-10] MEDS: cefTRIAXone 1 GM in Sodium Chloride 0.9% 50 ML IV SCH (04:14)
[2022-12-10 04:32] LABS: A/G RATIO 0.7 (1.2-2.2); ALANINE AMINOTRANSFERASE,ALT 30 U/L (12-78); ALBUMIN 2.6 g/dL (3.4-5.0); ALKALINE PHOSPHATASE 177 U/L (46-116); ASPARTATE AMNIOTRANSFERASE,AST 19 U/L (15-37); BILIRUBIN TOTAL 0.3 mg/dL (0.2-1.0); BLOOD UREA NITROGEN,BUN 7 mg/dL (7-18); CALCIUM 8.4 mg/dL (8.5-10.1); CARBON DIOXIDE,CO2 29 mmol/L (21-32); CHLORIDE,CL 102 mmol/L (100-108); CREATININE 0.5 mg/dL (0.6-1.0); ESTIMATED GFR 108 mL/min (>60); GLUCOSE RANDOM 88 mg/dL (74-106); MAGNESIUM 1.9 mg/dL (1.8-2.4); PHOSPHORUS 4.8 mg/dL (2.5-4.9); POTASSIUM,K 4.1 mmol/L (3.6-5.2); PROTEIN TOTAL,TP 6.4 g/dL (6.4-8.2); SODIUM,NA 139 mmol/L (140-148)
[2022-12-10 04:36] LABS: ANION GAP 12.1 mmol/L (5.0-14.0)
[2022-12-10 04:42] LABS: IRON,FE 37 ug/dL (50-170); PERCENT FE SATURATION 19 % (20-55); TOTAL IRON BINDING CAPACITY 192 ug/dl (250-450)
[2022-12-10] MEDS: Heparin Sodium 5,000 Units/ML Vial SUBCUT SCH ×2 (08:14→19:57)
[2022-12-10] MEDS: Metoprolol Tartrate 25 MG Tab PO SCH ×2 (08:14→21:58)
[2022-12-10] MEDS: Gabapentin 250 MG/5 ML Solution ML 470 ML Bottle JTUBE SCH ×3 (08:14→21:58)
[2022-12-10] MEDS: Amiodarone 200 MG Tab JTUBE SCH (08:14)
[2022-12-10] MEDS ORDERED: Sodium Chloride 0.9% 50 ML IV SCH (08:45)
[2022-12-10] MEDS: Iopamidol 612 MG/ML 100 ML Bottle IV ONE ×2 (09:31→12:34)
[2022-12-10] MEDS: Levothyroxine 112 MCG Tab JTUBE SCH (11:43)
[2022-12-10] MEDS: Famotidine 20 MG Tab PO SCH (21:58)
[2022-12-10] MEDS: HYDROmorphone 0.5 MG/0.5 ML Syringe IVPUSH PRN (21:58)
[2022-12-10] MEDS: diphenhydrAMINE 25 MG/10 ML Cup JTUBE PRN (22:16)
[2022-12-11] MEDS: HYDROmorphone 2 MG Tab JTUBE PRN ×5 (01:59→20:30)
[2022-12-11 04:44] LABS: HEMATOCRIT 30.7 % (34.3-46.0); HEMOGLOBIN 9.9 g/dL (11.2-15.5); MEAN CORPUSCULAR HEMOGLOBIN 30.7 pg (31.6-35.5); MEAN CORPUSCULAR HGB CONC 32.2 g/dL (31.6-35.5); RED BLOOD CELL COUNT 3.23 M/uL (3.77-5.24); WHITE BLOOD CELL COUNT,WBC 7.9 K/uL (3.2-11.0)
[2022-12-11 05:14] LABS: A/G RATIO 0.6 (1.2-2.2); ALANINE AMINOTRANSFERASE,ALT 30 U/L (12-78); ALBUMIN 2.3 g/dL (3.4-5.0); ALKALINE PHOSPHATASE 167 U/L (46-116); ASPARTATE AMNIOTRANSFERASE,AST 19 U/L (15-37); BILIRUBIN TOTAL 0.3 mg/dL (0.2-1.0); BLOOD UREA NITROGEN,BUN 8 mg/dL (7-18); CALCIUM 7.9 mg/dL (8.5-10.1); CARBON DIOXIDE,CO2 28 mmol/L (21-32); CHLORIDE,CL 102 mmol/L (100-108); CREATININE 0.4 mg/dL (0.6-1.0); EST CRCL DRUG DOSING (CG) 141.76 mL/min; ESTIMATED GFR 114 mL/min (>60); GLUCOSE RANDOM 115 mg/dL (74-106); PHOSPHORUS 4.7 mg/dL (2.5-4.9); PROTEIN TOTAL,TP 5.9 g/dL (6.4-8.2); SODIUM,NA 138 mmol/L (140-148)
[2022-12-11] MEDS: HYDROmorphone 0.5 MG/0.5 ML Syringe IVPUSH PRN (05:25)
[2022-12-11] MEDS: Gabapentin 250 MG/5 ML Solution ML 470 ML Bottle JTUBE SCH ×3 (09:09→20:37)
[2022-12-11] MEDS: Cyclobenzaprine 10 MG Tab PO PRN ×2 (09:35→20:31)
[2022-12-11] MEDS: Metoprolol Tartrate 25 MG Tab PO SCH ×2 (09:35→20:31)
[2022-12-11] MEDS: Heparin Sodium 5,000 Units/ML Vial SUBCUT SCH ×2 (09:36→20:30)
[2022-12-11] MEDS: Levothyroxine 112 MCG Tab JTUBE SCH (13:12)
[2022-12-11] MEDS: Famotidine 20 MG Tab PO SCH (20:30)
[2022-12-11] MEDS: diphenhydrAMINE 25 MG/10 ML Cup JTUBE PRN (20:37)
[2022-12-12] MEDS: Cyclobenzaprine 10 MG Tab PO PRN (02:53)
[2022-12-12] MEDS: HYDROmorphone 2 MG Tab JTUBE PRN ×4 (02:53→13:33)
[2022-12-12 04:56] LABS: HEMATOCRIT 30.8 % (34.3-46.0); MEAN CORPUSCULAR HGB CONC 32.5 g/dL (31.6-35.5); MEAN CORPUSCULAR VOLUME 95.4 fL (81.4-99.0); RED BLOOD CELL COUNT 3.23 M/uL (3.77-5.24); WHITE BLOOD CELL COUNT,WBC 8.5 K/uL (3.2-11.0)
[2022-12-12 05:19] LABS: ALANINE AMINOTRANSFERASE,ALT 45 U/L (12-78); ALBUMIN 2.4 g/dL (3.4-5.0); ALKALINE PHOSPHATASE 190 U/L (46-116); ASPARTATE AMNIOTRANSFERASE,AST 36 U/L (15-37); BILIRUBIN TOTAL 0.4 mg/dL (0.2-1.0); BLOOD UREA NITROGEN,BUN 8 mg/dL (7-18); CALCIUM 8.1 mg/dL (8.5-10.1); CARBON DIOXIDE,CO2 29 mmol/L (21-32); CHLORIDE,CL 99 mmol/L (100-108); CREATININE 0.5 mg/dL (0.6-1.0); EST CRCL DRUG DOSING (CG) 113.41 mL/min; ESTIMATED GFR 108 mL/min (>60); GLUCOSE RANDOM 105 mg/dL (74-106); PHOSPHORUS 4.5 mg/dL (2.5-4.9); POTASSIUM,K 4.6 mmol/L (3.6-5.2); PROTEIN TOTAL,TP 6.1 g/dL (6.4-8.2); SODIUM,NA 135 mmol/L (140-148)
[2022-12-12 05:22] LABS: A/G RATIO 0.7 (1.2-2.2); ANION GAP 11.6 mmol/L (5.0-14.0)
[2022-12-12] MEDS: Heparin Sodium 5,000 Units/ML Vial SUBCUT SCH (07:50)
[2022-12-12] MEDS: Metoprolol Tartrate 25 MG Tab PO SCH (08:46)
[2022-12-12] MEDS: Gabapentin 250 MG/5 ML Solution ML 470 ML Bottle JTUBE SCH (08:50)
[2022-12-12] MEDS: Levothyroxine 112 MCG Tab JTUBE SCH (11:28)
== END 2022-12-12 13:50 | disposition home health service (06) | DRG 853 ==
LOC: JP.SDS 07:44 → JP.ICU 16:48 → JP.MS 11-29 15:37
PROVIDERS: ADMIT Surgery; ATTEND Surgery
PROC: 0WQF0ZZ Repair Abdominal Wall, Open Approach (ICD-10-PCS; 2022-11-10)
PROC: 0W9940Z Drainage of Right Pleural Cavity with Drainage Device, Percutaneous Endoscopic Approach (ICD-10-PCS; 2022-11-10)
PROC: 07QP0ZZ Repair Spleen, Open Approach (ICD-10-PCS; 2022-11-10)
PROC: 0DP60UZ Removal of Feeding Device from Stomach, Open Approach (ICD-10-PCS; 2022-11-10)
PROC: 0DQ70ZZ Repair Stomach, Pylorus, Open Approach (ICD-10-PCS; 2022-11-10)
PROC: 3E0M05Z Introduction of Adhesion Barrier into Peritoneal Cavity, Open Approach (ICD-10-PCS; 2022-11-10)
PROC: 02HV33Z Insertion of Infusion Device into Superior Vena Cava, Percutaneous Approach (ICD-10-PCS; 2022-11-10)
PROC: 3E033XZ Introduction of Vasopressor into Peripheral Vein, Percutaneous Approach (ICD-10-PCS; 2022-11-10)
PROC: 3E03329 Introduction of Other Anti-infective into Peripheral Vein, Percutaneous Approach (ICD-10-PCS; 2022-11-10)
PROC: 30233N1 Transfusion of Nonautologous Red Blood Cells into Peripheral Vein, Percutaneous Approach (ICD-10-PCS; 2022-11-10)
PROC: 5A1955Z Respiratory Ventilation, Greater than 96 Consecutive Hours (ICD-10-PCS; 2022-11-10)
PROC: 0BH17EZ Insertion of Endotracheal Airway into Trachea, Via Natural or Artificial Opening (ICD-10-PCS; 2022-11-10)
PROC: 4A033R1 Measurement of Arterial Saturation, Peripheral, Percutaneous Approach (ICD-10-PCS; 2022-11-10)
PROC: 0DB40ZZ Excision of Esophagogastric Junction, Open Approach (ICD-10-PCS; principal; 2022-11-10 09:00)
PROC: 0DB60ZZ Excision of Stomach, Open Approach (ICD-10-PCS; 2022-11-10 09:00)
PROC: 0WP900Z Removal of Drainage Device from Right Pleural Cavity, Open Approach (ICD-10-PCS; 2022-11-12)
PROC: 0W9900Z Drainage of Right Pleural Cavity with Drainage Device, Open Approach (ICD-10-PCS; 2022-11-12)
PROC: 30233N1 Transfusion of Nonautologous Red Blood Cells into Peripheral Vein, Percutaneous Approach (ICD-10-PCS; 2022-11-13)
PROC: 0WQF0ZZ Repair Abdominal Wall, Open Approach (ICD-10-PCS; 2022-11-14)
PROC: 30233N1 Transfusion of Nonautologous Red Blood Cells into Peripheral Vein, Percutaneous Approach (ICD-10-PCS; 2022-11-18)
PROC: 0B9F8ZZ Drainage of Right Lower Lung Lobe, Via Natural or Artificial Opening Endoscopic (ICD-10-PCS; 2022-11-22)
PROC: 0B9D8ZZ Drainage of Right Middle Lung Lobe, Via Natural or Artificial Opening Endoscopic (ICD-10-PCS; 2022-11-22)
PROC: 30233N1 Transfusion of Nonautologous Red Blood Cells into Peripheral Vein, Percutaneous Approach (ICD-10-PCS; 2022-11-23)
PROC: 0DPD3UZ Removal of Feeding Device from Lower Intestinal Tract, Percutaneous Approach (ICD-10-PCS; 2022-11-25)
PROC: 0DHA3UZ Insertion of Feeding Device into Jejunum, Percutaneous Approach (ICD-10-PCS; 2022-11-25)
PROC: 30233N1 Transfusion of Nonautologous Red Blood Cells into Peripheral Vein, Percutaneous Approach (ICD-10-PCS; 2022-11-25)
PROC: 0D20XUZ Change Feeding Device in Upper Intestinal Tract, External Approach (ICD-10-PCS; 2022-12-07)
DX: A41.9 Sepsis, unspecified organism (principal); J18.9 Pneumonia, unspecified organism; R65.21 Severe sepsis with septic shock; C15.5 Malignant neoplasm of lower third of esophagus; J95.811 Postprocedural pneumothorax; J96.11 Chronic respiratory failure with hypoxia; K94.13 Enterostomy malfunction; K42.0 Umbilical hernia with obstruction, without gangrene; K94.39 Other complications of esophagostomy; N39.0 Urinary tract infection, site not specified; N20.2 Calculus of kidney with calculus of ureter; I48.92 Unspecified atrial flutter; K21.9 Gastro-esophageal reflux disease without esophagitis; R62.7 Adult failure to thrive; I95.9 Hypotension, unspecified; E03.9 Hypothyroidism, unspecified; Z87.891 Personal history of nicotine dependence; E87.5 Hyperkalemia; I48.91 Unspecified atrial fibrillation; N13.9 Obstructive and reflux uropathy, unspecified; Z90.49 Acquired absence of other specified parts of digestive tract; Z79.899 Other long term (current) drug therapy; Z68.29 Body mass index [BMI] 29.0-29.9, adult; Z88.5 Allergy status to narcotic agent; Z88.8 Allergy status to other drugs, medicaments and biological substances; Z86.16 Personal history of COVID-19; Z98.890 Other specified postprocedural states; Z98.51 Tubal ligation status
CPT/HCPCS: 36415; 36430; 49406; 49406-26; 51702; 71045; 71045-26; 71260; 71260-26; 74018; 74018-26; 74177; 74177-26; 77012; 77012-26; 80048; 80053; 81001; 82150; 82378; 82803; 83550; 83605; 83615; 83735; 83880; 84100; 84145; 84443; 84478; 84484; 85025; 85027; 86850; 86900; 86901; 86920; 86922; 87040; 87070; 87075; 87077; 87086; 87088; 87186; 87205; 87220; 88302; 88305; 88307; 88309; 88341; 88342; 92507-GN; 92522-GN; 92524-GN; 93306; 94002; 94003; 94640; 94667; 94668; 97110-GO; 97110-GP; 97116-GP; 97163-GP; 97165-GO; 97530-GO; 97530-GP; 97535-GO; A9270-GY; C1729; C1751; C9113; J0131; J0171; J0282; J0330; J0694; J0696; J1100; J1160; J1170; J1200; J1450; J1642; J1644; J1720; J1940; J2020; J2060; J2185; J2248; J2250; J2310; J2371; J2405; J2704; J2710; J2765; J2795; J3010; J3410; J3411; J3475; J3480; J3490; J7030; J7040; J7050; J7060; J7120; J7121; P9016; P9047; Q9967

== ENCOUNTER 2022-12-28 13:11 | Emergency (ER) | payer MEDICAID ==
[2022-12-28] MEDS ORDERED: Ondansetron 4 MG/2 ML SDV IVPUSH ONE (14:22)
[2022-12-28] MEDS ORDERED: Sodium Chloride 0.9% 10 ML Syringe FLUSH PRN (14:22)
[2022-12-28] MEDS ORDERED: Lactated Ringers 1,000 ML IV ONE (14:22)
[2022-12-28 14:32] LABS: BASOPHILS PERCENT AUTO 0.3 % (0.1-1.3); EOSINOPHILS ABSOLUTE AUTO 0.04 K/uL (0.00-0.40); EOSINOPHILS PERCENT AUTO 0.7 % (0.0-5.4); HEMOGLOBIN 11.7 g/dL (11.2-15.5); IMMATURE GRAN PERCENT AUTO 0.3 % (0.0-0.7); LYMPHOCYTES ABSOLUTE AUTO 0.47 K/uL (0.8-3.3); MEAN CORPUSCULAR HEMOGLOBIN 31.5 pg (31.6-35.5); MEAN CORPUSCULAR HGB CONC 33.4 g/dL (31.6-35.5); MEAN CORPUSCULAR VOLUME 94.1 fL (81.4-99.0); MONOCYTES ABSOLUTE AUTO 0.33 K/uL (0.20-0.90); MONOCYTES PERCENT AUTO 5.6 % (3.3-12.6); NEUTROPHILS ABSOLUTE AUTO 4.99 K/uL (1.0-7.6); NEUTROPHILS PERCENT AUTO 85.1 % (40.0-78.1); PLATELET COUNT,PLT 251 K/uL (130-375); RED BLOOD CELL COUNT 3.72 M/uL (3.77-5.24); WHITE BLOOD CELL COUNT,WBC 5.9 K/uL (3.2-11.0)
[2022-12-28 14:33] LABS: BASOPHILS ABSOLUTE AUTO 0.02 K/uL (0.00-0.10); IMMATURE GRAN ABSOLUTE AUTO 0.02 K/uL (0.00-0.23)
[2022-12-28 14:55] LABS: A/G RATIO 0.7 (1.2-2.2); ALANINE AMINOTRANSFERASE,ALT 22 U/L (12-78); ALBUMIN 2.9 g/dL (3.4-5.0); ALKALINE PHOSPHATASE 153 U/L (46-116); ASPARTATE AMNIOTRANSFERASE,AST 17 U/L (15-37); BILIRUBIN TOTAL 0.4 mg/dL (0.2-1.0); BLOOD UREA NITROGEN,BUN 11 mg/dL (7-18); CALCIUM 9.1 mg/dL (8.5-10.1); CARBON DIOXIDE,CO2 26 mmol/L (21-32); CHLORIDE,CL 100 mmol/L (100-108); CREATININE 0.4 mg/dL (0.6-1.0); EST CRCL DRUG DOSING (CG) 147.26 mL/min; ESTIMATED GFR 114 mL/min (>60); GLUCOSE RANDOM 106 mg/dL (74-106); SODIUM,NA 138 mmol/L (140-148)
== END 2022-12-28 16:00 | disposition home or self-care (01) ==
LOC: JP.ED 13:11
DX: R11.2 Nausea with vomiting, unspecified (principal); I10 Essential (primary) hypertension; E03.9 Hypothyroidism, unspecified; Z79.899 Other long term (current) drug therapy; Z88.5 Allergy status to narcotic agent; Z88.8 Allergy status to other drugs, medicaments and biological substances; Z86.16 Personal history of COVID-19; Z87.891 Personal history of nicotine dependence; Z90.49 Acquired absence of other specified parts of digestive tract
CPT/HCPCS: 36415; 80053; 83605; 85025; 96361; 96374; 99283; 99284; J2405; J3490; J7120

== ENCOUNTER 2022-12-31 11:51 | Emergency (ER) | payer MEDICAID ==
[2022-12-31 13:47] LABS: BASOPHILS PERCENT AUTO 0.2 % (0.1-1.3); HEMATOCRIT 36.8 % (34.3-46.0); HEMOGLOBIN 12.2 g/dL (11.2-15.5); IMMATURE GRAN PERCENT AUTO 0.3 % (0.0-0.7); LYMPHOCYTES ABSOLUTE AUTO 0.43 K/uL (0.8-3.3); LYMPHOCYTES PERCENT AUTO 6.7 % (11.4-47.7); MEAN CORPUSCULAR HGB CONC 33.2 g/dL (31.6-35.5); MEAN CORPUSCULAR VOLUME 93.4 fL (81.4-99.0); MONOCYTES ABSOLUTE AUTO 0.31 K/uL (0.20-0.90); MONOCYTES PERCENT AUTO 4.8 % (3.3-12.6); NEUTROPHILS ABSOLUTE AUTO 5.63 K/uL (1.0-7.6); PLATELET COUNT,PLT 270 K/uL (130-375); RED BLOOD CELL COUNT 3.94 M/uL (3.77-5.24); WHITE BLOOD CELL COUNT,WBC 6.4 K/uL (3.2-11.0)
[2022-12-31 14:05] LABS: CREATININE 0.4 mg/dL (0.6-1.0); EST CRCL DRUG DOSING (CG) 147.26 mL/min; POTASSIUM,K 3.4 mmol/L (3.6-5.2)
[2022-12-31 14:08] LABS: ANION GAP 13.4 mmol/L (5.0-14.0); BASOPHILS ABSOLUTE AUTO 0.01 K/uL (0.00-0.10); IMMATURE GRAN ABSOLUTE AUTO 0.02 K/uL (0.00-0.23)
[2022-12-31] MEDS ORDERED: Iopamidol 612 MG/ML 100 ML Bottle IV PRN (14:11)
[2022-12-31] MEDS ORDERED: Sodium Chloride 0.9% 10 ML Syringe FLUSH ONE (14:11)
[2022-12-31] MEDS ORDERED: Sodium Chloride 0.9% 50 ML IV SCH (14:15)
[2022-12-31] MEDS ORDERED: Scopolamine 1.5 MG Transdermal Patch TRDERM PRN (14:46)
== END 2022-12-31 16:30 | disposition home or self-care (01) ==
LOC: JP.ED 11:51
DX: K22.9 Disease of esophagus, unspecified (principal); I10 Essential (primary) hypertension; K21.9 Gastro-esophageal reflux disease without esophagitis; E03.9 Hypothyroidism, unspecified; Z86.16 Personal history of COVID-19; Z90.49 Acquired absence of other specified parts of digestive tract; Z87.891 Personal history of nicotine dependence; Z88.5 Allergy status to narcotic agent; Z88.8 Allergy status to other drugs, medicaments and biological substances
CPT/HCPCS: 36415; 71260; 74177; 80048; 84145; 85025; 99285; A9270; J3490; Q9967

== ENCOUNTER 2023-03-11 17:06 | Emergency (ER) | payer MEDICAID ==
[2023-03-11] MEDS ORDERED: Naloxone 0.4 MG/ML SDV IVPUSH PRN (17:46)
[2023-03-11] MEDS: HYDROmorphone 0.5 MG/0.5 ML Syringe IM ONE (17:59)
[2023-03-11] MEDS: Dextrose 5%-0.9% NaCl 1,000 ML IV SCH ×2 (19:31→20:59)
[2023-03-11] MEDS: Sodium Chloride 0.9% 10 ML Syringe FLUSH PRN (19:33)
[2023-03-11] MEDS: HYDROmorphone 0.5 MG/0.5 ML Syringe IVPUSH ONE (19:46)
[2023-03-11] MEDS: Heparin Sodium 5,000 Units/ML Vial IVPUSH ONE (19:56)
[2023-03-11] MEDS: Heparin Sodium/D5W 25,000 UNITS/500 ML BAG IV SCH (19:58)
[2023-03-11] MEDS: HYDROmorphone 0.5 MG/0.5 ML Syringe IVPUSH PRN (21:11)
[2023-03-12] MEDS: Heparin Sodium 5,000 Units/ML Vial IVPUSH ONE (08:54)
[2023-03-12 13:11] LABS: BASOPHILS PERCENT AUTO 0.6 % (0.1-1.3); EOSINOPHILS ABSOLUTE AUTO 0.04 K/uL (0.00-0.40); EOSINOPHILS PERCENT AUTO 1.2 % (0.0-5.4); HEMOGLOBIN 9.7 g/dL (11.2-15.5); LYMPHOCYTES ABSOLUTE AUTO 0.58 K/uL (0.8-3.3); LYMPHOCYTES PERCENT AUTO 16.9 % (11.4-47.7); MEAN CORPUSCULAR HEMOGLOBIN 30.1 pg (31.6-35.5); MEAN CORPUSCULAR HGB CONC 31.3 g/dL (31.6-35.5); MEAN CORPUSCULAR VOLUME 96.3 fL (81.4-99.0); MONOCYTES ABSOLUTE AUTO 0.21 K/uL (0.20-0.90); MONOCYTES PERCENT AUTO 6.1 % (3.3-12.6); NEUTROPHILS ABSOLUTE AUTO 2.59 K/uL (1.0-7.6); NEUTROPHILS PERCENT AUTO 75.2 % (40.0-78.1); PLATELET COUNT,PLT 224 K/uL (130-375); RED BLOOD CELL COUNT 3.22 M/uL (3.77-5.24); WHITE BLOOD CELL COUNT,WBC 3.4 K/uL (3.2-11.0)
[2023-03-12 13:13] LABS: BASOPHILS ABSOLUTE AUTO 0.02 K/uL (0.00-0.10)
[2023-03-12 13:43] LABS: A/G RATIO 0.7 (1.2-2.2); ALANINE AMINOTRANSFERASE,ALT 24 U/L (12-78); ALBUMIN 2.4 g/dL (3.4-5.0); ALKALINE PHOSPHATASE 127 U/L (46-116); ASPARTATE AMNIOTRANSFERASE,AST 17 U/L (15-37); BILIRUBIN TOTAL 0.2 mg/dL (0.2-1.0); BLOOD UREA NITROGEN,BUN 7 mg/dL (7-18); CARBON DIOXIDE,CO2 26 mmol/L (21-32); CHLORIDE,CL 106 mmol/L (100-108); CREATININE 0.4 mg/dL (0.6-1.0); EST CRCL DRUG DOSING (CG) 147.26 mL/min; ESTIMATED GFR 114 mL/min (>60); GLUCOSE RANDOM 114 mg/dL (74-106); MAGNESIUM 1.6 mg/dL (1.8-2.4); PHOSPHORUS 3.3 mg/dL (2.5-4.9); POTASSIUM,K 3.5 mmol/L (3.6-5.2); PROTEIN TOTAL,TP 5.8 g/dL (6.4-8.2); SODIUM,NA 141 mmol/L (140-148)
[2023-03-12 14:02] LABS: ANION GAP 12.5 mmol/L (5.0-14.0)
[2023-03-12] MEDS: Dextrose 5%-Lactated Ringers 1,000 ML IV SCH (17:30)
[2023-03-12] MEDS: Metoprolol Tartrate 5 MG/5 ML SDV ONE (18:07)
[2023-03-12] MEDS: Metoprolol Tartrate 5 MG in Sodium Chloride 0.9% 50 ML IV SCH (18:08)
[2023-03-12] MEDS: Metoprolol Tartrate 5 MG/5 ML SDV IVPUSH SCH (21:00)
[2023-03-12] MEDS: LORazepam 2 MG/ML SDV IVPUSH SCH (22:11)
[2023-03-13 05:59] LABS: BASOPHILS ABSOLUTE AUTO 0.03 K/uL (0.00-0.10); BASOPHILS PERCENT AUTO 0.8 % (0.1-1.3); EOSINOPHILS ABSOLUTE AUTO 0.04 K/uL (0.00-0.40); HEMATOCRIT 31.2 % (34.3-46.0); IMMATURE GRAN PERCENT AUTO 0.3 % (0.0-0.7); LYMPHOCYTES ABSOLUTE AUTO 0.36 K/uL (0.8-3.3); LYMPHOCYTES PERCENT AUTO 9.2 % (11.4-47.7); MEAN CORPUSCULAR HEMOGLOBIN 30.4 pg (31.6-35.5); MEAN CORPUSCULAR HGB CONC 32.1 g/dL (31.6-35.5); MEAN CORPUSCULAR VOLUME 94.8 fL (81.4-99.0); MONOCYTES PERCENT AUTO 5.1 % (3.3-12.6); NEUTROPHILS ABSOLUTE AUTO 3.29 K/uL (1.0-7.6); NEUTROPHILS PERCENT AUTO 83.6 % (40.0-78.1); PLATELET COUNT,PLT 219 K/uL (130-375); RED BLOOD CELL COUNT 3.29 M/uL (3.77-5.24); WHITE BLOOD CELL COUNT,WBC 3.9 K/uL (3.2-11.0)
[2023-03-13 06:00] LABS: IMMATURE GRAN ABSOLUTE AUTO 0.01 K/uL (0.00-0.23)
[2023-03-13 06:15] LABS: ANION GAP 13.3 mmol/L (5.0-14.0); CALCIUM 8.2 mg/dL (8.5-10.1); CREATININE 0.4 mg/dL (0.6-1.0); EST CRCL DRUG DOSING (CG) 147.26 mL/min; POTASSIUM,K 3.3 mmol/L (3.6-5.2)
[2023-03-13] MEDS ORDERED: D5%-0.9% NaCl w/ KCl 40 meq 1,000 ML IV SCH (09:00)
[2023-03-13] MEDS: Fluconazole/Normal Saline 200 MG in Premix Bag 1 BAG IV SCH (11:34)
[2023-03-13] MEDS: Ampicillin/Sulbactam Na 3 GM in Sodium Chloride 0.9% 100 ML IV SCH (12:42)
[2023-03-14] MEDS: Dextrose 5%-Lactated Ringers 1,000 ML IV SCH (02:48)
[2023-03-14] MEDS: HYDROmorphone 0.5 MG/0.5 ML Syringe IVPUSH PRN (04:00)
[2023-03-14] MEDS: Ampicillin/Sulbactam Na 3 GM in Sodium Chloride 0.9% 100 ML IV SCH (11:51)
[2023-03-14] MEDS: Enoxaparin 80 MG/0.8 ML Syringe SUBCUT SCH (16:13)
[2023-03-14] MEDS: 1: AA 4.25%/D5W/Calcium/Lytes 1,000 ML with MVI, Adult with Vitamin K 10 ML, Zinc/Copper IV SCH (16:48)
[2023-03-15] MEDS: HYDROmorphone 0.5 MG/0.5 ML Syringe IVPUSH PRN (04:19)
[2023-03-15 06:14] LABS: BASOPHILS PERCENT AUTO 0.5 % (0.1-1.3); EOSINOPHILS ABSOLUTE AUTO 0.06 K/uL (0.00-0.40); EOSINOPHILS PERCENT AUTO 1.4 % (0.0-5.4); HEMATOCRIT 34.7 % (34.3-46.0); HEMOGLOBIN 11.2 g/dL (11.2-15.5); IMMATURE GRAN PERCENT AUTO 0.5 % (0.0-0.7); LYMPHOCYTES ABSOLUTE AUTO 0.41 K/uL (0.8-3.3); LYMPHOCYTES PERCENT AUTO 9.7 % (11.4-47.7); MEAN CORPUSCULAR HEMOGLOBIN 29.9 pg (31.6-35.5); MEAN CORPUSCULAR HGB CONC 32.3 g/dL (31.6-35.5); MEAN CORPUSCULAR VOLUME 92.8 fL (81.4-99.0); MONOCYTES ABSOLUTE AUTO 0.26 K/uL (0.20-0.90); MONOCYTES PERCENT AUTO 6.2 % (3.3-12.6); NEUTROPHILS ABSOLUTE AUTO 3.45 K/uL (1.0-7.6); NEUTROPHILS PERCENT AUTO 81.7 % (40.0-78.1); PLATELET COUNT,PLT 243 K/uL (130-375); RED BLOOD CELL COUNT 3.74 M/uL (3.77-5.24); WHITE BLOOD CELL COUNT,WBC 4.2 K/uL (3.2-11.0)
[2023-03-15 06:18] LABS: BASOPHILS ABSOLUTE AUTO 0.02 K/uL (0.00-0.10)
[2023-03-15 06:19] LABS: IMMATURE GRAN ABSOLUTE AUTO 0.02 K/uL (0.00-0.23)
[2023-03-15 06:35] LABS: A/G RATIO 0.7 (1.2-2.2); ALANINE AMINOTRANSFERASE,ALT 25 U/L (12-78); ALBUMIN 2.6 g/dL (3.4-5.0); ALKALINE PHOSPHATASE 144 U/L (46-116); ASPARTATE AMNIOTRANSFERASE,AST 18 U/L (15-37); BILIRUBIN TOTAL 0.3 mg/dL (0.2-1.0); BLOOD UREA NITROGEN,BUN 3 mg/dL (7-18); CALCIUM 8.4 mg/dL (8.5-10.1); CARBON DIOXIDE,CO2 29 mmol/L (21-32); CHLORIDE,CL 98 mmol/L (100-108); CREATININE 0.4 mg/dL (0.6-1.0); EST CRCL DRUG DOSING (CG) 147.26 mL/min; ESTIMATED GFR 114 mL/min (>60); GLUCOSE RANDOM 107 mg/dL (74-106); POTASSIUM,K 3.3 mmol/L (3.6-5.2); PROTEIN TOTAL,TP 6.4 g/dL (6.4-8.2); SODIUM,NA 134 mmol/L (140-148)
[2023-03-15 07:17] LABS: ANION GAP 10.3 mmol/L (5.0-14.0)
[2023-03-15] MEDS ORDERED: Central Total Parenteral Nutrition Bag SCH (11:00)
[2023-03-15] MEDS ORDERED: Magnesium Sulfate/Water 2 GM in Premix Bag 1 BAG IV ONE (11:00)
[2023-03-15] MEDS: Magnesium Sulfate/Water 2 GM in Premix Bag 1 BAG IV ONE (12:40)
[2023-03-15] MEDS: 1: AA 4.25%/D5W/Calcium/Lytes 1,000 ML with MVI, Adult with Vitamin K 10 ML, Zinc/Copper IV SCH (14:57)
[2023-03-16 06:31] LABS: A/G RATIO 0.7 (1.2-2.2); ALANINE AMINOTRANSFERASE,ALT 22 U/L (12-78); ALBUMIN 2.4 g/dL (3.4-5.0); ALKALINE PHOSPHATASE 132 U/L (46-116); ASPARTATE AMNIOTRANSFERASE,AST 13 U/L (15-37); BILIRUBIN TOTAL 0.3 mg/dL (0.2-1.0); BLOOD UREA NITROGEN,BUN 4 mg/dL (7-18); CALCIUM 8.3 mg/dL (8.5-10.1); CARBON DIOXIDE,CO2 28 mmol/L (21-32); CHLORIDE,CL 102 mmol/L (100-108); CREATININE 0.4 mg/dL (0.6-1.0); EST CRCL DRUG DOSING (CG) 147.26 mL/min; ESTIMATED GFR 114 mL/min (>60); GLUCOSE RANDOM 114 mg/dL (74-106); SODIUM,NA 138 mmol/L (140-148)
[2023-03-16] MEDS ORDERED: Potassium Chloride 10 MEQ in Premix Bag 2 BAG IV ONE (07:46)
[2023-03-16] MEDS: Potassium Chloride 10 MEQ in Premix Bag 1 BAG IV SCH ×2 (08:14→11:38)
[2023-03-16] MEDS: Dextrose 5%-0.9% NaCl 1,000 ML IV SCH (08:37)
[2023-03-16] MEDS: Magnesium Sulfate/Water 2 GM in Premix Bag 1 BAG IV ONE (11:04)
[2023-03-16] MEDS ORDERED: Central Total Parenteral Nutrition Bag SCH (13:45)
[2023-03-16] MEDS: Acetaminophen 1,000 MG in Premix Bag 1 BAG IV PRN (14:08)
[2023-03-16] MEDS ORDERED: MVI IV SCH (14:45)
[2023-03-16] MEDS ORDERED: VITAMIN K IV SCH (14:45)
[2023-03-16] MEDS ORDERED: [UNRECOGNIZED DRUG - OTHER] IV SCH (14:45)
== END 2023-03-16 16:32 ==
LOC: JP.ED 17:06
DX: K94.23 Gastrostomy malfunction (principal); I26.99 Other pulmonary embolism without acute cor pulmonale; D64.9 Anemia, unspecified; I48.91 Unspecified atrial fibrillation; J94.8 Other specified pleural conditions; K21.9 Gastro-esophageal reflux disease without esophagitis; E03.9 Hypothyroidism, unspecified; Z86.16 Personal history of COVID-19; Z85.01 Personal history of malignant neoplasm of esophagus; Z90.2 Acquired absence of lung [part of]; Z79.899 Other long term (current) drug therapy; Z88.5 Allergy status to narcotic agent; Z88.8 Allergy status to other drugs, medicaments and biological substances; Z79.82 Long term (current) use of aspirin
CPT/HCPCS: 36415; 80048; 80053; 83605; 83735; 84100; 85025; 85730; 93005; 93010; 96365; 96366; 96367; 96368; 96372; 96375; 96376; 99285; J0131; J0295; J1170; J1450; J1644; J1650; J2060; J3475; J3480; J3490; J7121

== ENCOUNTER 2023-05-29 12:48 | Emergency (ER) | payer MEDICAID ==
[2023-05-29 14:27] LABS: BASOPHILS ABSOLUTE AUTO 0.03 K/uL (0.00-0.10); BASOPHILS PERCENT AUTO 0.5 % (0.1-1.3); EOSINOPHILS ABSOLUTE AUTO 0.03 K/uL (0.00-0.40); EOSINOPHILS PERCENT AUTO 0.5 % (0.0-5.4); HEMOGLOBIN 10.6 g/dL (11.2-15.5); IMMATURE GRAN ABSOLUTE AUTO 0.04 K/uL (0.00-0.23); IMMATURE GRAN PERCENT AUTO 0.7 % (0.0-0.7); MEAN CORPUSCULAR HEMOGLOBIN 30.8 pg (31.6-35.5); MEAN CORPUSCULAR HGB CONC 31.2 g/dL (31.6-35.5); MEAN CORPUSCULAR VOLUME 98.8 fL (81.4-99.0); MONOCYTES ABSOLUTE AUTO 0.41 K/uL (0.20-0.90); MONOCYTES PERCENT AUTO 6.7 % (3.3-12.6); NEUTROPHILS ABSOLUTE AUTO 4.84 K/uL (1.0-7.6); NEUTROPHILS PERCENT AUTO 78.6 % (40.0-78.1); PLATELET COUNT,PLT 249 K/uL (130-375); RED BLOOD CELL COUNT 3.44 M/uL (3.77-5.24); WHITE BLOOD CELL COUNT,WBC 6.2 K/uL (3.2-11.0)
[2023-05-29 14:38] LABS: CALCIUM 9.6 mg/dL (8.5-10.1); CREATININE 0.7 mg/dL (0.6-1.0); EST CRCL DRUG DOSING (CG) 83.03 mL/min; POTASSIUM,K 4.6 mmol/L (3.6-5.2)
[2023-05-29 14:39] LABS: ANION GAP 12.6 mmol/L (5.0-14.0)
[2023-05-29] MEDS: Ketorolac 30 MG/ML SDV IM ONE (14:55)
[2023-05-29 15:31] LABS: APPEARANCE,URINE TURBID (CLEAR); BILIRUBIN,URINE NEGATIVE (NEGATIVE); COLOR,URINE RED (YELLOW); GLUCOSE,URINE NEGATIVE (NEGATIVE); KETONES,URINE NEGATIVE (NEGATIVE); LEUKOCYTE ESTERASE,URINE SMALL (NEGATIVE); NITRITE,URINE NEGATIVE (NEGATIVE); PROTEIN,URINE >=300 mg/dL (NEGATIVE); UROBILINOGEN,URINE 0.2 EU/dL (0.2-1.0)
[2023-05-29 15:34] LABS: OCCULT BLOOD,URINE LARGE (NEGATIVE); RBC,URINE PACKED (0-5)
== END 2023-05-29 16:20 | disposition home or self-care (01) ==
LOC: JP.ED 12:48
DX: N20.0 Calculus of kidney (principal); I10 Essential (primary) hypertension; K21.9 Gastro-esophageal reflux disease without esophagitis; E03.9 Hypothyroidism, unspecified; Z79.82 Long term (current) use of aspirin; Z79.899 Other long term (current) drug therapy; Z90.49 Acquired absence of other specified parts of digestive tract; Z88.5 Allergy status to narcotic agent; Z88.8 Allergy status to other drugs, medicaments and biological substances
CPT/HCPCS: 36415; 74176; 80048; 81001; 85025; 87086; 96372; 99284; J1885

== ENCOUNTER 2023-06-12 21:08 | Emergency (ER) | payer MEDICAID, OTHER ==
[2023-06-12] MEDS ORDERED: Sodium Chloride 0.9% 250 ML IV SCH (22:15)
[2023-06-12 22:40] LABS: BASOPHILS ABSOLUTE AUTO 0.05 K/uL (0.00-0.10); BASOPHILS PERCENT AUTO 0.6 % (0.1-1.3); EOSINOPHILS ABSOLUTE AUTO 0.12 K/uL (0.00-0.40); EOSINOPHILS PERCENT AUTO 1.4 % (0.0-5.4); HEMATOCRIT 39.7 % (34.3-46.0); HEMOGLOBIN 12.1 g/dL (11.2-15.5); IMMATURE GRAN ABSOLUTE AUTO 0.04 K/uL (0.00-0.23); IMMATURE GRAN PERCENT AUTO 0.5 % (0.0-0.7); LYMPHOCYTES ABSOLUTE AUTO 0.69 K/uL (0.8-3.3); LYMPHOCYTES PERCENT AUTO 7.9 % (11.4-47.7); MEAN CORPUSCULAR HEMOGLOBIN 31.5 pg (31.6-35.5); MEAN CORPUSCULAR HGB CONC 30.5 g/dL (31.6-35.5); MEAN CORPUSCULAR VOLUME 103.4 fL (81.4-99.0); MONOCYTES ABSOLUTE AUTO 0.65 K/uL (0.20-0.90); MONOCYTES PERCENT AUTO 7.5 % (3.3-12.6); NEUTROPHILS ABSOLUTE AUTO 7.17 K/uL (1.0-7.6); NEUTROPHILS PERCENT AUTO 82.1 % (40.0-78.1); PLATELET COUNT,PLT 224 K/uL (130-375); RED BLOOD CELL COUNT 3.84 M/uL (3.77-5.24); WHITE BLOOD CELL COUNT,WBC 8.7 K/uL (3.2-11.0)
[2023-06-12] MEDS: Dextrose 5% in Water 250 ML IV SCH (22:40)
[2023-06-12 23:01] LABS: A/G RATIO 0.6 (1.2-2.2); ALANINE AMINOTRANSFERASE,ALT 238 U/L (12-78); ALBUMIN 3.1 g/dL (3.4-5.0); ALKALINE PHOSPHATASE 397 U/L (46-116); ASPARTATE AMNIOTRANSFERASE,AST 79 U/L (15-37); BILIRUBIN TOTAL 0.5 mg/dL (0.2-1.0); CALCIUM 9.6 mg/dL (8.5-10.1); CARBON DIOXIDE,CO2 26 mmol/L (21-32); CHLORIDE,CL 118 mmol/L (100-108); CREATININE 1.5 mg/dL (0.6-1.0); ESTIMATED GFR 40 mL/min (>60); GLUCOSE RANDOM 128 mg/dL (74-106); POTASSIUM,K 4.7 mmol/L (3.6-5.2); PROTEIN TOTAL,TP 8.2 g/dL (6.4-8.2); SODIUM,NA 159 mmol/L (140-148)
[2023-06-12 23:03] LABS: ANION GAP 19.7 mmol/L (5.0-14.0)
[2023-06-12 23:04] LABS: BLOOD UREA NITROGEN,BUN 142 mg/dL (7-18)
[2023-06-13] MEDS: Dextrose 5% in Water 1,000 ML IV SCH (00:23)
[2023-06-13] MEDS: HYDROmorphone 0.5 MG/0.5 ML Syringe IVPUSH ONE (00:24)
[2023-06-13] MEDS: HYDROmorphone 1 MG/ML Syringe IVPUSH ONE (01:36)
[2023-06-13 06:02] LABS: A/G RATIO 0.7 (1.2-2.2); ALANINE AMINOTRANSFERASE,ALT 214 U/L (12-78); ALBUMIN 2.8 g/dL (3.4-5.0); ALKALINE PHOSPHATASE 344 U/L (46-116); ASPARTATE AMNIOTRANSFERASE,AST 71 U/L (15-37); BILIRUBIN TOTAL 0.5 mg/dL (0.2-1.0); CARBON DIOXIDE,CO2 28 mmol/L (21-32); CHLORIDE,CL 111 mmol/L (100-108); CREATININE 1.2 mg/dL (0.6-1.0); EST CRCL DRUG DOSING (CG) 47.49 mL/min; ESTIMATED GFR 52 mL/min (>60); GLUCOSE RANDOM 250 mg/dL (74-106); MAGNESIUM 3.2 mg/dL (1.8-2.4); PROTEIN TOTAL,TP 7.1 g/dL (6.4-8.2); SODIUM,NA 149 mmol/L (140-148)
[2023-06-13 06:05] LABS: BLOOD UREA NITROGEN,BUN 118 mg/dL (7-18)
[2023-06-13] MEDS: Lactated Ringers 500 ML IV SCH (08:46)
== END 2023-06-13 10:15 | disposition other institution (70) ==
LOC: JP.ED 21:08
DX: N17.9 Acute kidney failure, unspecified (principal); E86.0 Dehydration; E87.0 Hyperosmolality and hypernatremia; I10 Essential (primary) hypertension; E03.9 Hypothyroidism, unspecified; Z86.16 Personal history of COVID-19; Z79.899 Other long term (current) drug therapy; Z79.82 Long term (current) use of aspirin; Z88.5 Allergy status to narcotic agent; Z88.8 Allergy status to other drugs, medicaments and biological substances
CPT/HCPCS: 36415; 80053; 82140; 83735; 85025; 96361; 96374; 96376; 99285; J1170; J7060; J7120

== ENCOUNTER 2023-07-31 15:14 | Emergency (ER) | payer MEDICAID, OTHER ==
[2023-07-31] MEDS: Dextrose 5% in Water 1,000 ML IV SCH (17:06)
== END 2023-07-31 20:08 | disposition home or self-care (01) ==
LOC: JP.ED 15:14
DX: E87.0 Hyperosmolality and hypernatremia (principal); I10 Essential (primary) hypertension; E03.9 Hypothyroidism, unspecified; Z86.16 Personal history of COVID-19; Z88.5 Allergy status to narcotic agent; Z88.8 Allergy status to other drugs, medicaments and biological substances; Z79.890 Hormone replacement therapy; Z79.899 Other long term (current) drug therapy; Z90.49 Acquired absence of other specified parts of digestive tract
CPT/HCPCS: 36415; 71046; 84295; 96360; 96361; 99285; J7060

== ENCOUNTER 2023-08-13 20:48 | Emergency (ER) | payer MEDICAID, OTHER | END 2023-08-13 21:50 | disposition home or self-care (01) | LOC: JP.ED 20:48 | DX: K94.23 Gastrostomy malfunction (principal); I10 Essential (primary) hypertension; E03.9 Hypothyroidism, unspecified; Z86.16 Personal history of COVID-19; Z87.891 Personal history of nicotine dependence; Z79.899 Other long term (current) drug therapy; Z88.5 Allergy status to narcotic agent; Z88.8 Allergy status to other drugs, medicaments and biological substances | CPT/HCPCS: 99282 ==

== ENCOUNTER 2023-10-19 10:42 | Emergency (ER) | payer MEDICAID, OTHER | END 2023-10-19 14:05 | disposition home or self-care (01) | LOC: JP.ED 10:42 | DX: E87.0 Hyperosmolality and hypernatremia (principal); I10 Essential (primary) hypertension; E03.9 Hypothyroidism, unspecified; Z88.5 Allergy status to narcotic agent; Z88.8 Allergy status to other drugs, medicaments and biological substances; Z79.890 Hormone replacement therapy; Z79.899 Other long term (current) drug therapy; Z86.16 Personal history of COVID-19 | CPT/HCPCS: 36415; 84295; 99284 ==

== ENCOUNTER 2023-10-24 12:19 | Emergency (ER) | payer MEDICAID ==
[2023-10-24 12:55] LABS: BASOPHILS PERCENT AUTO 0.3 % (0.1-1.3); EOSINOPHILS ABSOLUTE AUTO 0.03 K/uL (0.00-0.40); EOSINOPHILS PERCENT AUTO 0.8 % (0.0-5.4); HEMATOCRIT 33.5 % (34.3-46.0); HEMOGLOBIN 11.3 g/dL (11.2-15.5); IMMATURE GRAN PERCENT AUTO 0.3 % (0.0-0.7); LYMPHOCYTES PERCENT AUTO 18.9 % (11.4-47.7); MEAN CORPUSCULAR HEMOGLOBIN 30.8 pg (31.6-35.5); MEAN CORPUSCULAR HGB CONC 33.7 g/dL (31.6-35.5); MEAN CORPUSCULAR VOLUME 91.3 fL (81.4-99.0); MONOCYTES ABSOLUTE AUTO 0.28 K/uL (0.20-0.90); MONOCYTES PERCENT AUTO 7.6 % (3.3-12.6); NEUTROPHILS ABSOLUTE AUTO 2.67 K/uL (1.0-7.6); NEUTROPHILS PERCENT AUTO 72.1 % (40.0-78.1); PLATELET COUNT,PLT 119 K/uL (130-375); RED BLOOD CELL COUNT 3.67 M/uL (3.77-5.24); WHITE BLOOD CELL COUNT,WBC 3.7 K/uL (3.2-11.0)
[2023-10-24 12:56] LABS: BASE EXCESS VENOUS 5.2 mm/L; BICARBONATE,VENOUS 29.6 mmol/L; CARBOXYHEMOGLOBIN 2.1 % (0.0-1.6); METHEMOGLOBIN 0.5 %; O2 SATURATION VENOUS 43.7; OXYHEMOGLOBIN 42.6 %; PCO2 VENOUS 44.4 mm/Hg; PH,VENOUS 7.439 (7.350-7.450); TOTAL HEMOGLOBIN 11.8 g/dL (12.0-16.0)
[2023-10-24 12:58] LABS: BASOPHILS ABSOLUTE AUTO 0.01 K/uL (0.00-0.10); IMMATURE GRAN ABSOLUTE AUTO 0.01 K/uL (0.00-0.23); PO2 VENOUS 25.3 mm/Hg
[2023-10-24] MEDS ORDERED: Mupirocin Oint 22 GM Tube ONE (13:05)
[2023-10-24 13:18] LABS: ALANINE AMINOTRANSFERASE,ALT 321 U/L (12-78); ALBUMIN 3.6 g/dL (3.4-5.0); ALKALINE PHOSPHATASE 164 U/L (46-116); ASPARTATE AMNIOTRANSFERASE,AST 107 U/L (15-37); BILIRUBIN TOTAL 0.2 mg/dL (0.2-1.0); BLOOD UREA NITROGEN,BUN 36 mg/dL (7-18); CALCIUM 9.5 mg/dL (8.5-10.1); CARBON DIOXIDE,CO2 32 mmol/L (21-32); CHLORIDE,CL 110 mmol/L (100-108); CREATININE 0.6 mg/dL (0.6-1.0); EST CRCL DRUG DOSING (CG) 97.38 mL/min; ESTIMATED GFR 103 mL/min (>60); GLUCOSE RANDOM 92 mg/dL (74-106); POTASSIUM,K 4.3 mmol/L (3.6-5.2); PROTEIN TOTAL,TP 7.3 g/dL (6.4-8.2); SODIUM,NA 148 mmol/L (140-148)
[2023-10-24 13:21] LABS: ANION GAP 10.3 mmol/L (5.0-14.0)
[2023-10-24] MEDS: Mupirocin Oint 22 GM Tube TOP ONE (14:15)
[2023-10-24] MEDS ORDERED: Naloxone 0.4 MG/ML SDV IVPUSH PRN (14:26)
[2023-10-24] MEDS: HYDROmorphone 0.5 MG/0.5 ML Syringe IVPUSH ONE (14:51)
[2023-10-24] MEDS: Sodium Chloride 0.9% 100 ML IV ONE (15:12)
[2023-10-24] MEDS: Iopamidol 755 Mg/ML 100 ML Bottle IV ONE (15:12)
[2023-10-24] MEDS: Sodium Chloride 0.9% 10 ML Syringe FLUSH ONE (15:12)
== END 2023-10-24 16:17 | disposition home or self-care (01) ==
LOC: JP.ED 12:19
DX: L03.818 Cellulitis of other sites (principal); I10 Essential (primary) hypertension; E03.9 Hypothyroidism, unspecified; Z86.16 Personal history of COVID-19; Z90.49 Acquired absence of other specified parts of digestive tract; Z79.899 Other long term (current) drug therapy; Z79.2 Long term (current) use of antibiotics; Z79.890 Hormone replacement therapy; Z88.5 Allergy status to narcotic agent; Z88.8 Allergy status to other drugs, medicaments and biological substances
CPT/HCPCS: 36415; 71045; 71275; 80053; 82803; 83605; 84145; 85025; 85379; 87070; 87077; 87186; 87205; 96374; 99285; A9270; J1170; J3490; Q9967